=== PATIENT | female | born 1940 | race Caucasian/White ===

== ENCOUNTER → 2016-06-03 | Outpatient (CLI) | payer OTHER ==
--- NOTE | 2016-06-03 17:18 | MA ---
Screening Digital Mammogram With iCAD - June 03, 2016 Indication: Routine screening. Technique: Standard cephalocaudal and mediolateral oblique projections were obtained. This examinat ion was processed by the [employer] computer-aided detection system. Comparison: April 2015, April 2014, December 2012, and November 2011. Breast density: Type B. Findings: CAD was reviewed. Negative. No malignant-type calcification, dominant mass, or architectura l distortion. Impression: Negative mammogram. BI-RADS 1. Recommendation: Routine screening is recommended in one year. [facility] will send a result letter to the patient. Negative mammography should not preclude additional workup of a clinically suspicious finding. The patient's information is entered into a reminder system with a target due date for her next mammo gram.
== END ==
LOC: CIMAGING 13:50
DX: Z12.31 Encounter for screening mammogram for malignant neoplasm of breast (principal)
CPT/HCPCS: G0202

== ENCOUNTER 2017-04-27 05:48 | Inpatient (IN) | payer OTHER ==
[2017-04-27] MEDS ORDERED: LIDOCAINE 1% 2 ML INJ ID PRN (06:19)
[2017-04-27] MEDS ORDERED: LR 1,000 ML IV ONE (06:19)
[2017-04-27] MEDS ORDERED: THROMBIN (BOVINE) 5,000 UNIT VIAL TP ONE (06:34)
[2017-04-27] MEDS ORDERED: CALCIUM CHLORIDE 1 GM/10 ML INJ ONE (06:34)
[2017-04-27] MEDS ORDERED: BUPIVACAINE/EPI 0.5% 30 ML SDV ONE (06:34)
[2017-04-27] MEDS ORDERED: POLYMYXIN B SULFATE 500,000 UNIT/10 ML SYR IRR ONE (06:35)
[2017-04-27] MEDS ORDERED: BACITRACIN 50,000 UNITS/10 ML SYR IRR ONE (06:35)
[2017-04-27] MEDS ORDERED: MIDAZOLAM 2 MG/2 ML VIAL IVP ONE (07:06)
--- NOTE | 2017-04-27 07:08 | PDANEPAE ---
ANE Past Medical History - Cardiovascular History Hx Hypertension: No Hx Arrhythmias: No Hx Chest Pain: No Hx Coronary Artery / Peripheral Vascular Disease: No Hx CHF / Valvular Disease: No Hx Palpitations: No - Pulmonary History Hx COPD: No Hx Asthma/Reactive Airway Disease: No Hx Recent Upper Respiratory Infection: No Hx Oxygen in Use at Home: No Hx Sleep Apnea: No Sleep Apnea Screening Result - Last Documented: Positive - Neurologic History Hx Cerebrovascular Accident: No Hx Seizures: No Hx Dementia: No - Endocrine History Hx Diabetes: No Hypothyroid: No Hyperthyroid: No Obesity: yes, moderate - Renal History Hx Renal Disorders: No - Liver History Hx Hepatic Disorders: No - Neurological & Psychiatric Hx Hx Neurological and Psychiatric Disorders: Yes Neurological / Psychiatric History Comment: chiari malformation - Cancer History Hx Cancer: No - Congenital Disorder History Hx Congenital Disorders: No - GI History GERD: no Hx Gastrointestinal Disorders: No - Other Health History Other Health History: eczma on hands - Chronic Pain History Chronic Pain: No - Surgical History Prior Surgeries: carpal tunnel, cervical fusion ANE Review of Systems Review of Systems: - Exercise capacity METS (RN): 4 METS ANE Patient History - Allergies Allergies/Adverse Reactions: codeine [Codeine] Allergy (Mild, Verified 03/26/17 10:42) Rash - Home Medications Home Medications: Gabapentin [Neurontin 300 MG (*)] 600 mg PO BID 11/23/09 [Last Taken 04/27/17] Ascorbic Acid [Vitamin C 500 mg (*)] 1,000 mg PO DAILY 03/26/17 [Last Taken 09/07] Aspirin [Aspirin 81mg (*)] 81 mg PO DAILY 03/26/17 [Last Taken 04/19/17] C/E/Zn/Cu/OM3/DHA/EPA/LUT/ZEAX [Preservision Areds 2 Softgel] 1 each PO DAILY [Last Taken 04/26/17] Calcium Carbonate/Vitamin D3 [CALCIUM 600 + VIT D TABLET] 1 each PO DAILY [Last Taken 04/26/17] Herbals/Supplements -Info Only 1 ea PO DAILY 03/26/17 [Last Taken Unknown] Multivitamins [Multivitamin (*)] 1 each PO DAILY 03/26/17 [Last Taken 04/26/17] Laurens-3 Fatty Acids [Fish Oil 1000 mg (*)] 1,000 mg PO DAILY 03/26/17 [Last Taken 04/19/17] Vitamin B Complex [B Complex] 1 each PO DAILY 03/26/17 [Last Taken 04/26/17] - NPO status NPO Since - Liquids (Date): 04/26/17 NPO Since - Liquids (Time): 22:00 NPO Since - Solids (Date): 04/26/17 NPO Since - Solids (Time): 18:00 - Smoking Hx Smoking Status: Never smoked - Family Anes Hx Family Hx Anesthesia Complications: none ANE Labs/Vital Signs - Vital Signs Blood Pressure: 138/82 Heart Rate: 80 Respiratory Rate: 16 O2 Sat (%): 92 Height: 154.94 cm Weight: 90.718 kg ANE Physical Exam - Airway Neck exam: spinal fusion Mallampati Score: Class 2 Mouth exam: normal dental/mouth exam - Pulmonary Pulmonary: no respiratory distress, no rales or rhonchi, clear to auscultation - Cardiovascular Cardiovascular: regular rate and rhythym, no murmur, rub, or gallop - ASA Status ASA Status: II ANE Anesthesia Plan Anesthesia Plan: MAC, spinal
[2017-04-27] MEDS ORDERED: ROPIVACAINE 0.2% 80 MG, EPINEPHrine 0.2 MG, KETOROLAC TROMETHAMINE 30 MG, morphINE 10 M... IU ONE (07:15)
[2017-04-27] MEDS ORDERED: ACETAMINOPHEN 500 MG TAB PO ONE (07:15)
[2017-04-27] MEDS ORDERED: ceFAZolin 2 GM/SWFI 2 GM/20 ML SYR IVP ONE (07:15)
[2017-04-27] MEDS ORDERED: TRANEXAMIC ACID 3,000 MG in NS 50 ML IRR ONE (07:15)
--- NOTE | 2017-04-27 07:15 | PDHPUP ---
History & Physical Update H&P update statement: This history and physical update is based on an assessment of the patient which was completed after admission or registration (within 24 hours), but prior to the surgery/procedure. H&P update: H&P reviewed & patient examined, no change in patient's condition since H&P completed
[2017-04-27] MEDS ORDERED: PROPOFOL/EMULSION 500 MG/50 ML BOTTLE IV ONE (07:19)
[2017-04-27] MEDS ORDERED: fentaNYL 100 MCG/2 ML INJ ONE ×2 (07:19→09:49)
[2017-04-27] MEDS ORDERED: LIDOCAINE 2% 5 ML SDV ONE ×2 (07:21)
[2017-04-27] MEDS ORDERED: morphINE PF 5 MG/10 ML INJ ONE (07:27)
[2017-04-27] MEDS ORDERED: ONDANSETRON 4 MG/2 ML VIAL ONE (07:55)
[2017-04-27] MEDS ORDERED: DEXAMETHASONE 4 MG/ML VIAL ONE (07:55)
[2017-04-27] MEDS ORDERED: ROCURONIUM 50 MG/5 ML VIAL ONE (07:55)
[2017-04-27] MEDS ORDERED: PROPOFOL 200 MG/20 ML VIAL ONE (07:57)
[2017-04-27] MEDS ORDERED: REMIFENTANIL HCL 1 MG VIAL ONE (08:15)
[2017-04-27] MEDS ORDERED: ACETAMINOPHEN 500 MG TAB PO PRN (09:00)
[2017-04-27] MEDS ORDERED: HYDROCODONE/APAP 5/325 TAB PO PRN (09:00)
[2017-04-27] MEDS ORDERED: fentaNYL 100 MCG/2 ML INJ IVP PRN (09:00)
[2017-04-27] MEDS ORDERED: PROMETHAZINE HCL 25 MG/ML INJ IVP PRN ×2 (09:00→10:26)
[2017-04-27] MEDS ORDERED: ONDANSETRON 4 MG/2 ML VIAL IVP PRN ×2 (09:00→10:26)
[2017-04-27] MEDS ORDERED: NALOXONE HCL 0.4 MG/ML INJ IVP PRN (09:00)
[2017-04-27] MEDS ORDERED: LR 500 ML IV PRN (09:00)
[2017-04-27] MEDS ORDERED: OXYCODONE/APAP 5/325 TAB PO PRN (09:00)
[2017-04-27] MEDS ORDERED: epHEDrine SULFATE 10 MG/ML SYR ONE (09:06)
[2017-04-27] MEDS ORDERED: PHENYLEPHRINE HCL 100 MCG/ML SYR ONE (09:08)
[2017-04-27] MEDS ORDERED: NEOSTIGMINE METHYLSULFATE 3 MG/3 ML SYR ONE (09:53)
[2017-04-27] MEDS ORDERED: GLYCOPYRROLATE 0.2 MG/1 ML VIAL ONE ×2 (09:53→09:56)
[2017-04-27] MEDS ORDERED: KETOROLAC 30 MG/1 ML SDV ONE (10:03)
--- NOTE | 2017-04-27 10:25 | POSTOPPROG ---
Post Op Note Date of Operation: 04/27/17 Surgeon: Janine Zamarripa City Clerk: louie Anesthesiologist: lana Anesthesia: GET(General Endotracheal) Pre-op Diagnosis: l hip oa Procedure: l maira with fluoro Inf/Abcess present in the surg proc area at time of surgery?: No Depth: Deep Incisional (Fascial) EBL: 100-500
[2017-04-27] MEDS ORDERED: oxyCODONE IR 5 MG TAB PO PRN (10:26)
[2017-04-27] MEDS ORDERED: METOCLOPRAMIDE 10 MG/2 ML VIAL IVP PRN (10:26)
[2017-04-27] MEDS ORDERED: POLYETHYLENE GLYCOL 3350 17 GM PKT PO PRN (10:26)
[2017-04-27] MEDS ORDERED: MAGNESIUM HYDROXIDE 30 ML UDCUP PO PRN (10:26)
[2017-04-27] MEDS ORDERED: TEMAZEPAM 15 MG CAP PO PRN (10:26)
[2017-04-27] MEDS ORDERED: ONDANSETRON DISINTEGRATING 4 MG TAB PO PRN (10:26)
[2017-04-27] MEDS ORDERED: DIPHENOXYLATE/ATROPINE LOMOTIL 1 TAB PO PRN (10:26)
[2017-04-27] MEDS ORDERED: diphenhydrAMINE 25 MG CAP PO PRN (10:26)
[2017-04-27] MEDS ORDERED: BISACODYL 10 MG SUPP PR PRN (10:26)
[2017-04-27] MEDS ORDERED: LACTULOSE 20 GM/30 ML UDCUP PO PRN (10:26)
[2017-04-27] MEDS ORDERED: PROMETHAZINE HCL 25 MG SUPPR PR PRN (10:26)
[2017-04-27] MEDS ORDERED: TAPENTADOL HCL 50 MG TAB PO PRN (10:26)
[2017-04-27] MEDS ORDERED: CYCLOBENZAPRINE 10 MG TAB PO PRN (10:26)
[2017-04-27] MEDS ORDERED: LR 1,000 ML IV SCH (10:30)
--- NOTE | 2017-04-27 10:50 | POSTANESTH ---
Post Anesthetic Evaluation Cardiovascular Status: Normal, Stable Respiratory Status: Normal, Stable Level of Consciousness/Mental Status: Can Participate in Eval Pain Control: Adequate, Prn Tx Ordered Nausea/Vomiting Control: Adequate, Prn Tx Ordered Complications Possibly Related to Anesthesia: None Noted
--- NOTE | 2017-04-27 12:27 | GOP ---
[f rep st] OPERATIVE REPORT DATE OF OPERATION: 04/27/2017 SURGEON: Janine Zamarripa MD PIT SHOVELER: Gilberto Mccall, CSFA, LSA, whose presence was medically necessary. ANESTHESIA: Endotracheal intubation. PREOPERATIVE DIAGNOSIS: Left hip osteoarthritis. POSTOPERATIVE DIAGNOSIS: Left hip osteoarthritis. PROCEDURE PERFORMED: Left total hip arthroplasty with fluoroscopy. FINDINGS: INDICATIONS: This is a 77-year-old female with a several year history of left hip pain worsening wit h use and with time. X-rays revealed [id number] osteoarthritic changes of the left hip. She wishe s to have surgery in order to resolve the problem. DESCRIPTION OF PROCEDURE: Patient brought to the operating room after the left side had been identif ied as the correct side by the patient, nurse and [physician. Once in the operating room, she was alton harry under general anesthesia using endotracheal intubation. Once asleep, she was placed on the tract ion table with a well-padded peroneal post and both legs placed in the appropriate leg suazo. Fluor oscopy was used to ensure proper positioning of the pelvis and, once this was ensured, the left hip a nd flank were sterilely prepped and draped in the usual fashion using GSI solution. Once prepped and draped, incision was started just inferior to the ASIS and heading in a 15-degree posterior directio n with sharp dissection carried down through the skin and subcutaneous layers, identifying the tensor fascia mani below. The fascia overlying the tensor fascia mani was incised in line with its fibers, with the muscle belly of the TFL retracted laterally. The circumflex vessels at the base of the fasc ial sheath were cauterized. Deeper dissection was carried down onto the hip with blunt Cobra retracto rs placed on the superior and inferior portions of the femoral neck and a sharp Hohmann retractor alton harry on the anterior portion the acetabulum. The anterior portion of the capsule was excised. The Cobr a retractor was then placed intra-articularly, oscillating saw was used to cut across the femoral nec k just above the intertrochanteric line. The leg was externally rotated to 40 degrees and a corkscre w was placed within the femoral head and the femoral head was able to be removed in its entirety. Th e pulvinar at the base of the acetabulum was removed as well the acetabulum around the rim of the alonso tabulum. Sequential reamers were then used starting at a size 45 and extending to a size 49 until ac hieving bleeding bone. A 49 trial was noted to fit securely and well; its position was checked under fluoroscopy. A size 50 Tritanium hemispherical cup from Roy was then put into place with a scre w placed in the superior and anterior portion of the cup with a 32 x 50 polyethylene insert placed wi thin the acetabular cup. Once in position, the femur was externally rotated 90 degrees. Dissection was done around the capsule at the anterior and superior portions of the femoral capsule along the uriarte perior portion of the femoral neck. Once the femur had been freed enough, the leg was placed in exte nsion and adduction. A curette was used to remove the cancellous bone from the box portion of the fem ur and a rongeur was used to remove the superior portion of the femoral neck. Canal finder was then placed within the femoral canal and sequential broaches were used up to size 5 which was noted to fit securely. A trial reduction was performed. Fluoroscopy was then used to ensure adequate fill of th e proximal portion of the femur as well as good length. Therefore, the hip was re-dislocated, the tr ial was removed and a size 5 Accolade II 127-degree neck femoral component from Ed was put into place, noted to fit securely. Trials were done with several femoral heads and with a +8 head gave go od stability as well as good length compared to the opposite side. Therefore, the hip was re-disloca sherri. The trunnion was washed and then dried and a 32+ 8 Ed femoral head was put into place and noted to fit securely. The leg was relocated and was noted be very stable. Joint cocktail was injec sherri around the posterior capsule and the periosteum of the acetabulum and femur as well as plasma gel and tranexamic acid placed within the intra-articular portion of the hip. The fascia overlying the h ip was closed using 0 Vicryl suture in a running stitch with 0 Vicryl and 2-0 Vicryl suture then used to close subcutaneous layers and a 3-0 V-Loc suture in a running subcuticular stitch used to close t he skin. Then, 30 cc of Marcaine was infused around the actual incision itself and the wound was the n dressed with Steri-Strips, Xeroform, 4 x 4, and Tegaderm. Patient was completely undraped in the o perating room. Both legs were taken out of their leg holders. Her leg lengths were noted to be equa l. She was then woken up, extubated, transferred onto a stretcher, and sent to recovery room in good condition. /[id number]/MODL
[2017-04-27] MEDS: ACETAMINOPHEN 325 MG TAB PO SCH ×3 (12:38→23:38)
[2017-04-27] MEDS: KETOROLAC 30 MG/1 ML SDV IVP SCH ×3 (13:45→23:38)
[2017-04-27] MEDS: traMADol 50 MG TAB PO SCH ×3 (13:48→23:38)
[2017-04-27] MEDS: ceFAZolin 2 GM/DEXTROSE 100 ML IV SCH ×2 (15:42→23:45)
[2017-04-27] MEDS: SENNOSIDES/DOCUSATE SODIUM TAB PO SCH (21:08)
[2017-04-27] MEDS: FAMOTIDINE 20 MG TAB PO SCH (21:08)
[2017-04-27] MEDS: GABAPENTIN 300 MG CAP PO SCH (21:08)
[2017-04-28 05:13] LABS: HEMATOCRIT 30.2 % (38.0-47.0); HEMOGLOBIN 9.4 g/dL (12.6-16.3)
[2017-04-28] MEDS: traMADol 50 MG TAB PO SCH ×4 (05:48→23:59)
[2017-04-28] MEDS: ACETAMINOPHEN 325 MG TAB PO SCH ×4 (05:49→23:58)
[2017-04-28] MEDS: KETOROLAC 30 MG/1 ML SDV IVP SCH ×4 (05:50→23:59)
--- NOTE | 2017-04-28 08:19 | SOAPPROG ---
STEVEN Progress Note Assessment/Plan: Assessment: POD 1 Plan: - HCT - 30, recheck tomorrow AM, asymptomatic at this point - PT eval today, will likely be ready to go home tomorrow 04/28/17 08:17 Subjective: Pt comfortable, has had some chronic back pain since before surgery, still continues to bother her Objective: Vital Signs Temp Pulse Resp BP Pulse Ox 36.2 C 89 16 91/53 L 92 04/28/17 07:48 04/28/17 07:48 04/28/17 07:48 04/28/17 07:48 04/28/17 07:48 Laboratory Results 04/28/17 04:23 04/27/17 04/28/17 04/29/17 05:59 05:59 05:59 Intake Total 1540 Output Total 200 Balance 1340 Dressing CDI, compartments soft, calf NT, neg Homman's, NVI - Time Spent With Patient Time Spent With Patient: 15 - Pending Discharge Pending Discharge Within 24 Hours: No Pending Discharge Within 48 Hours: No ICD10 Worksheet Patient Problems: Problems Problem Status Onset Arthritis of left hip Acute - ICD10 Problem Qualifiers (1) Arthritis of left hip
[2017-04-28] MEDS: SENNOSIDES/DOCUSATE SODIUM TAB PO SCH ×2 (08:49→21:09)
[2017-04-28] MEDS: GABAPENTIN 300 MG CAP PO SCH ×2 (08:49→21:10)
[2017-04-28] MEDS: RIVAROXABAN 10 MG TAB PO SCH (08:50)
[2017-04-28] MEDS: FAMOTIDINE 20 MG TAB PO SCH ×2 (08:50→21:09)
--- NOTE | 2017-04-28 14:25 | ASMTCMCOM ---
CM Note CM Note Notes: Pt had planned total hip. PT rec SNF today; pt agreeable and chooses [facility]. Referral sent in [employer], [facility] accepts for likely d/c tomorrow. Date Signed: 04/28/2017 02:25 PM Electronically Signed By:SAMUEL Gomez
[2017-04-29 04:47] LABS: HEMATOCRIT 25.5 % (38.0-47.0); HEMOGLOBIN 8.4 g/dL (12.6-16.3)
[2017-04-29] MEDS: traMADol 50 MG TAB PO SCH ×3 (06:36→17:53)
[2017-04-29] MEDS: ACETAMINOPHEN 325 MG TAB PO SCH ×3 (06:36→17:53)
[2017-04-29] MEDS: KETOROLAC 30 MG/1 ML SDV IVP SCH (06:37)
[2017-04-29 08:10] VITALS: RESP 16
[2017-04-29] MEDS: FAMOTIDINE 20 MG TAB PO SCH ×2 (09:04→20:43)
[2017-04-29] MEDS: RIVAROXABAN 10 MG TAB PO SCH (09:04)
[2017-04-29] MEDS: GABAPENTIN 300 MG CAP PO SCH ×2 (09:04→20:42)
[2017-04-29] MEDS: SENNOSIDES/DOCUSATE SODIUM TAB PO SCH ×2 (09:04→20:42)
[2017-04-29] MEDS ORDERED: NS 500 ML IV ONE (10:30)
[2017-04-29 14:41] LABS: ANION GAP 8 mEq/L (8-16); CALCIUM 8.5 mg/dL (8.5-10.4); CARBON DIOXIDE 23 mEq/l (22-31); CHLORIDE 101 mEq/L (97-110); CREATININE 1.9 mg/dL (0.6-1.0); GLOMERULAR FILTRATION RATE 26; GLUCOSE 132 mg/dL (70-100); POTASSIUM 4.6 mEq/L (3.5-5.2); SODIUM 132 mEq/L (134-144)
[2017-04-30] MEDS: ACETAMINOPHEN 325 MG TAB PO SCH ×3 (00:03→12:51)
[2017-04-30] MEDS: traMADol 50 MG TAB PO SCH ×3 (00:04→12:51)
[2017-04-30 07:50] VITALS: TEMP 98.4
[2017-04-30] MEDS: FAMOTIDINE 20 MG TAB PO SCH (08:52)
[2017-04-30] MEDS: SENNOSIDES/DOCUSATE SODIUM TAB PO SCH (08:52)
[2017-04-30] MEDS: RIVAROXABAN 10 MG TAB PO SCH (08:52)
[2017-04-30] MEDS: GABAPENTIN 300 MG CAP PO SCH (08:52)
--- NOTE | 2017-04-30 14:23 | SOAPPROG ---
SOAP Progress Note Assessment/Plan: Assessment: POD 3 Plan: - Visual changes - Head CT normal - s/p TKA - doing well, can d/c to rehab - elevated BUN / Crea - encourage PO fluid intake, suggest recheck in 1 week 04/28/17 08:17 04/30/17 14:21 Subjective: Pt still c/o double vision/blurry vision. No improvement in that over yesterday. She is not taking any pain meds. Objective: Vital Signs Temp Pulse Resp BP Pulse Ox 36.9 C 95 16 100/64 96 04/30/17 07:46 04/30/17 07:46 04/30/17 07:46 04/30/17 07:46 04/30/17 07:46 Laboratory Results 04/29/17 04:30 04/29/17 13:00 04/29/17 04/30/17 05/01/17 05:59 05:59 05:59 Intake Total 2150 2100 Output Total 300 550 Balance 1850 1550 Wound CDI, calf NT, NVI - Time Spent With Patient Time Spent With Patient: 10 - Pending Discharge Pending Discharge Within 24 Hours: Yes Pending Discharge Within 48 Hours: No Pending Discharge Date: 05/01/17 Pending Discharge Time: 11:00 ICD10 Worksheet Patient Problems: Problems Problem Status Onset Arthritis of left hip Acute - ICD10 Problem Qualifiers (1) Arthritis of left hip
--- NOTE | 2017-04-30 14:27 | PDIAF ---
- Diagnosis Code Status: Full Code - Medication Management Discharge Medications: Medications to Continue on Transfer Gabapentin [Neurontin 300 MG (*)] 600 mg PO BID 11/23/09 [Last Taken 04/27/17] Ascorbic Acid [Vitamin C 500 mg (*)] 1,000 mg PO DAILY 03/26/17 [Last Taken 09/07] Aspirin [Aspirin 81mg (*)] 81 mg PO DAILY 03/26/17 [Last Taken 04/19/17] C/E/Zn/Cu/OM3/DHA/EPA/LUT/ZEAX [Preservision Areds 2 Softgel] 1 each PO DAILY [Last Taken 04/26/17] Calcium Carbonate/Vitamin D3 [CALCIUM 600 + VIT D TABLET] 1 each PO DAILY [Last Taken 04/26/17] Herbals/Supplements -Info Only 1 ea PO DAILY 03/26/17 [Last Taken Unknown] Multivitamins [Multivitamin (*)] 1 each PO DAILY 03/26/17 [Last Taken 04/26/17] Mccrory-3 Fatty Acids [Fish Oil 1000 mg (*)] 1,000 mg PO DAILY 03/26/17 [Last Taken 04/19/17] Vitamin B Complex [B Complex] 1 each PO DAILY 03/26/17 [Last Taken 04/26/17] Rivaroxaban [Xarelto 10mg (*)] 10 mg PO DAILY tab 04/30/17 [Last Taken Unknown] Sennosides/Docusate Sodium [Senokot-S] 1 - 2 tab PO BID tab 04/30/17 [Last Taken Unknown] oxyCODONE IR [Oxycodone Ir (*)] 5 - 10 mg PO Q3HRS PRN tab 04/30/17 [Last Taken Unknown] traMADol [Ultram 50 mg (*)] 50 mg PO Q6HRS tab 04/30/17 [Last Taken Unknown] Discharge Medications: Refer to the Discharge Home Medication list for PRN reason. PICC Care - Routine: N/A - Orders Services needed: Physical Therapy Diet Recommendation: no restrictions on diet Diet Texture: Regular Texture Diet - Labs/Radiology BMP Date: 05/06/17 Creatinine Date: 05/06/17 - Follow Up Care Current Providers and Referrals: Domenica Lee MD [Primary Care Provider] - Janine Zamarripa MD [Medical Doctor] -
[2017-04-30 15:40] VITALS: BP 133/70; PULSE 86; O2SAT 92
--- NOTE | 2017-05-01 10:04 | ASDISCHSUM ---
Discharge Information Plan Status:SNF Medically Cleared to Leave: Discharge Date:04/30/2017 04:47 PM D/C Disposition:[facility] Facility ADT D/C Disposition:[facility] Facility Projected Discharge Date:04/30/2017 11:00 AM Transportation at D/C: Discharge Delay Reason: Follow-Up Date:04/30/2017 11:00 AM Discharge Slot: Final Diagnosis: Placement Information Referral Type:*Long Term/SNF Referral ID:[id number] Provider Name:[facility] Address 1:[address] Address 2: City:[place] Selection Factors: State:[place] Patient Contact Information Contact Name:KEILA Relationship:Daughter Address:[address] [place] [address] City:[place] Alternate Phone: State/Zip Code:[place] [address] Email: Financial Information Financial Class: Primary Plan Desc:MEDICARE INPATIENT Primary Plan Number:[id number] Secondary Plan Desc:[facility] Secondary Plan Number:[id number] Assessment Information [facility] CM Progress Note CM Note CM Note Notes: Pt had planned total hip. PT rec SNF today; pt agreeable and chooses [facility]. Referral sent in [facility], [facility] accepts for likely d/c tomorrow. Date Signed: 04/28/2017 02:25 PM Electronically Signed By:SAMUEL Gomez [facility] CM Progress Note CM Note CM Note Notes: Pt medically stable for d/c to [facility] Date Signed: 05/01/2017 10:06 AM Electronically Signed By:SAMUEL Gomez Intervention Information Intervention Type:*IM-Signed Date of Service:04/30/2017 04:09 PM Patient Type:Inpatient Staff Member:Brinda Soto Hours: Discipline: Severity: Comment:
--- NOTE | 2017-05-01 10:07 | ASMTCMCOM ---
CM Note CM Note Notes: Pt medically stable for d/c to [facility] up [facility] Date Signed: 05/01/2017 10:06 AM Electronically Signed By:SAMUEL Gomez
== END 2017-04-30 16:47 | DRG 470 ==
LOC: F3N 05:48
PROVIDERS: ADMIT Orthopaedic Surgery; ATTEND Orthopaedic Surgery
PROC: 0SRB0JZ Replacement of Left Hip Joint with Synthetic Substitute, Open Approach (ICD-10-PCS; principal; 2017-04-27 07:15)
PROC: 30233N1 Transfusion of Nonautologous Red Blood Cells into Peripheral Vein, Percutaneous Approach (ICD-10-PCS; 2017-04-29)
DX: M16.12 Unilateral primary osteoarthritis, left hip (principal)
CPT/HCPCS: 97110-GP; 97116-GP; 97161-GP; 97165-GO; 97530-GO; 97535-GO; C1713; G8978-GP-CJ; G8979-GP-CI; G8987-GO-CK; G8988-GO-CI; J0171; J0690; J1100; J1885; J2250; J2274; J2370; J2405; J2704; J2710; J2795; J3010; P9016

== ENCOUNTER 2017-05-04 16:26 | Emergency (ER) | payer OTHER ==
[2017-05-04] MEDS ORDERED: HYDROmorphONE/DILAUDID 1 MG/ML INJ IVP ONE (16:49)
--- NOTE | 2017-05-04 16:53 | EDPHY ---
H & P Stated Complaint: L TKA last week, L Hip pain not getting better Time Seen by Provider: 05/04/17 16:50 HPI/ROS: HPI: This is a 77-year-old female who presents with Chief Complaint: Left hip pain Location: Left hip Quality: Pain Duration: 1 week Signs and Symptoms: No bleeding, no radiation, no numbness, no weakness, no tingling, no incontinence, + decreased range of motion, + swelling, + pain Timing: constant Severity: Severe Context: Patient reports that she had a left total hip replacement, anterior approach, last Wednesday, exactly 1 week ago, by Dr. Lucero. She is currently in a rehab center. She reports that she has had constant severe nonradiating pain that worsens with weight-bearing and movement since her surgery. The pain is not controlled with oxycodone or Ultram. On Xarelto. She denies any recent falls/shortness of breath/chest pain/palpitations/calf pain. Patient denies any recent falls. Patient is that she has not been placed in the cold pack on her left hip as advised. She admits to being extremely anxious about the entire situation. Modifying Factors: See above Comment: ROS: see HPI Constitutional: No fever, no chills, no weight loss Eyes: No blurred vision Respiratory: No shortness of breath, no cough Cardiovascular: No chest pain Gastrointestinal: No nausea, no vomiting no diarrhea Genitourinary: No dysuria Extremities: No myalgias Neurologic: No weakness, no numbness Skin: No rashes Hematologic: No bruising, no bleeding MEDICAL/SURGICAL/SOCIAL HISTORY: Medical history: GB/Neck/Hyst/Foot/chiari malformation, nerve pain Surgical history: L TKA Social history: Retired CONSTITUTIONAL: Tearful moderate distress elderly white female awake and alert , nontoxic in appearance HEENT: Atraumatic and normocephalic. NECK: supple, no midline tenderness Cardiovascular: Normal S1/S2, regular rate, regular rhythm, without murmur rub or gallop. PULMONARY/CHEST: Symmetrical and nontender. no crepitus. Clear to auscultation bilaterally. Good air movement. No accessory muscle usage. ABDOMEN: Soft, nondistended, nontender, no ecchymosis. BACK: No midline tenderness, no paraspinous spasm, deep tendon reflexes 2/2, no pain with straight leg raise EXTREMITIES: 2/2 pulses, left HIP: Moderate induration/erythema. Dressing over anterior approach incision. Flexion to 75, extension to 25, hyper extension to 15, abduction to 25. Pain with internal rotation and external rotation. tenderness over greater trochanter. no deformities, no clubbing, no cyanosis or edema. + left calf tenderness. NEUROLOGICAL: no focal neuro deficits. GCS 15. Light touch sensation intact. SKIN: Warm and dry, no erythema. no rash. Good capillary refill. Source: Patient Exam Limitations: No limitations - Personal History Current Tetanus Diphtheria and Acellular Pertussis (TDAP): Yes Tetanus Vaccine Date: 2009 - Medical/Surgical History Hx Asthma: No Hx Chronic Respiratory Disease: No Hx Diabetes: No Hx Cardiac Disease: No Hx Renal Disease: No Hx Cirrhosis: No Hx Alcoholism: No Hx HIV/AIDS: No Hx Splenectomy or Spleen Trauma: No Other PMH: GB/Neck/Hyst/Foot/chiari malformation, nerve pain, L TKA - Social History Smoking Status: Former smoker Constitutional: Initial Vital Signs Temperature (C) 36.8 C 05/04/17 16:34 Heart Rate 86 05/04/17 16:34 Respiratory Rate 18 05/04/17 16:34 Blood Pressure 142/125 H 05/04/17 16:34 O2 Sat (%) 95 05/04/17 16:34 O2 Delivery Mode Nasal Cannula O2 (L/minute) 2 Allergies/Adverse Reactions: codeine [Codeine] Allergy (Mild, Verified 05/04/17 16:34) Rash Home Medications: Medication Instructions Recorded Gabapentin [Neurontin 300 MG (*)] 600 mg PO BID 11/23/09 Ascorbic Acid [Vitamin C 500 mg 1,000 mg PO DAILY 03/26/17 (*)] Aspirin [Aspirin 81mg (*)] 81 mg PO DAILY 03/26/17 C/E/Zn/Cu/OM3/DHA/EPA/LUT/ZEAX 1 each PO DAILY 03/26/17 [Preservision Areds 2 Softgel] Calcium Carbonate/Vitamin D3 1 each PO DAILY 03/26/17 [CALCIUM 600 + VIT D TABLET] Herbals/Supplements -Info Only 1 ea PO DAILY 03/26/17 Multivitamins [Multivitamin (*)] 1 each PO DAILY 03/26/17 [place]-3 Fatty Acids [Fish Oil 1000 1,000 mg PO DAILY 03/26/17 mg (*)] Vitamin B Complex [B Complex] 1 each PO DAILY 03/26/17 Rivaroxaban [Xarelto 10mg (*)] 10 mg PO DAILY tab 04/30/17 Sennosides/Docusate Sodium 1 - 2 tab PO BID tab 04/30/17 [Senokot-S] oxyCODONE IR [Oxycodone Ir (*)] 5 - 10 mg PO Q3HRS PRN tab 04/30/17 traMADol [Ultram 50 mg (*)] 50 mg PO Q6HRS tab 04/30/17 HYDROmorphone HCL [Dilaudid 2 mg 2 mg PO Q6 PRN #12 tab 05/04/17 (*)] Medical Decision Making - Diagnostics Imaging Results: Imaging Impressions Extremity Venous Study 05/04/17 16:49 Impression: Technically limited study. No evidence of deep vein thrombosis in the left leg. I telephoned results to Tess Freeman at 1730 hours. Hip X-Ray 05/04/17 16:49 Impression: Bilateral hip replacements, unchanged from April 27, 2017. ED Course/Re-evaluation: IV medications, left hip x-ray, left lower extremity ultrasound, labs ordered Given IV Dilaudid with moderate pain relief 1730: Called by Radiology Dr. Golden who advised that ultrasound shows no lower extremity on the left side deep venous thrombosis No signs of neurovascular compromise/tenting of skin/compartment syndrome/ extremities and joints examined above and below area of concern and are neurovascularly intact/cellulitis/sepsis. 1820: Spoke with Dr. Mullen, who was manager front office for Dr. Zamarripa, discussed the patient's complaint x-ray and ultrasound results. There appears to be no signs of infection. Afebrile. The area is indurated which is to be expected after surgery. Dr. Mullen advises the patient to call the office in the morning for follow-up appointment in the next 1-2 days. Requests pain control. Agrees with benefit of durakold. Patient is to hold off on physical therapy until seen by Orthopedics in follow-up. For transport and because it is after hours; patient given p.o. Dilaudid 2 mg at discharge Labs reviewed and showed no leukocytosis This patient was seen under the supervision of my secondary supervising physician. I evaluated care for this patient independently. Patient's presentation, labs/imaging, treatment and plan of care were discussed with secondary supervising physician. Differential Diagnosis: Differential diagnosis includes but is not limited to hematoma, contusion, postoperative pain, hardware malfunction, cellulitis, abscess, DVT. - Data Points Laboratory Results: Laboratory Results 05/04/17 16:40 05/04/17 16:40 05/04/17 05/04/17 16:40 16:40 WBC 9.06 10^3/uL 10^3/uL (3.80-9.50) RBC 3.00 10^6/uL L 10^6/uL (4.18-5.33) Hgb 9.5 g/dL L g/dL (12.6-16.3) Hct 28.3 % L % (38.0-47.0) MCV 94.3 fL fL (81.5-99.8) MCH 31.7 pg pg (27.9-34.1) MCHC 33.6 g/dL g/dL (32.4-36.7) RDW 14.1 % % (11.5-15.2) Plt Count 166 10^3/uL 10^3/uL (150-400) MPV 11.5 fL fL (8.7-11.7) Neut % (Auto) Not Reported Lymph % (Auto) Not Reported Brooke % (Auto) Not Reported Eos % (Auto) Not Reported Baso % (Auto) Not Reported Nucleat RBC Rel Count 0.7 % H % (0.0-0.2) Absolute Neuts (auto) Not Reported Absolute Lymphs (auto) Not Reported Absolute Monos (auto) Not Reported Absolute Eos (auto) Not Reported Absolute Basos (auto) Not Reported Absolute Nucleated RBC 0.06 10^3/uL H 10^3/uL (0-0.01) Immature Gran % Not Reported Immature Gran # Not Reported Platelet Estimate Pending Sodium 135 mEq/L mEq/L (134-144) Potassium 4.9 mEq/L mEq/L (3.5-5.2) Chloride 97 mEq/L mEq/L (97-110) Carbon Dioxide 29 mEq/l mEq/l (22-31) Anion Gap 9 mEq/L mEq/L (8-16) BUN 17 mg/dL mg/dL (7-23) Creatinine 0.9 mg/dL mg/dL (0.6-1.0) Estimated GFR > 60 Glucose 105 mg/dL H mg/dL (70-100) Calcium 9.1 mg/dL mg/dL (8.5-10.4) Medications Given: Discontinued Medications Hydromorphone HCl (Dilaudid) 1 mg IVP EDNOW ONE Stop: 05/04/17 16:50 Last Admin: 05/04/17 16:52 Dose: 1 mg Departure - Departure Disposition: Home, Routine, Self-Care Clinical Impression: History of total left hip replacement, Uncontrolled pain Condition: Good Instructions: Hydromorphone (By mouth) Additional Instructions: Patient is to no longer participate in physical therapy until seen by Dr. Zamarripa for follow-up in the next 1-[address] Zamarripa office in the a.m. to get an appointment in the next 1-2 days. Stop taking oxycodone. Start taking Dilaudid. Place the Durakold ice pack on left hip several times per day to decrease inflammation and pain. Today your x-ray showed that your hardware is in the proper place. Ultrasound did not show a blood clot in your left leg. Referrals: Janine Zamarripa MD [Medical Doctor] - 1-2 days without fail Prescriptions: HYDROmorphone HCL [Dilaudid 2 mg (*)] 2 mg PO Q6 PRN #12 tab PRN Reason: Pain, Severe
[2017-05-04 18:37] LABS: ANION GAP 9 mEq/L (8-16); CALCIUM 9.1 mg/dL (8.5-10.4); CARBON DIOXIDE 29 mEq/l (22-31); CHLORIDE 97 mEq/L (97-110); CREATININE 0.9 mg/dL (0.6-1.0); GLOMERULAR FILTRATION RATE > 60; GLUCOSE 105 mg/dL (70-100); POTASSIUM 4.9 mEq/L (3.5-5.2); SODIUM 135 mEq/L (134-144)
[2017-05-04 18:46] LABS: ABSOLUTE NRBC COUNT 0.06 10^3/uL (0-0.01); ADD DIFF? YES; ADD MORPH? NO; ADD SCAN? NO; ATYPICAL LYMPHOCYTE FLAG 0 (0-99); FRAGMENT RBC FLAG 0 (0-99); HEMATOCRIT 28.3 % (38.0-47.0); HEMOGLOBIN 9.5 g/dL (12.6-16.3); LEFT SHIFT FLG 60 (0-99); LIPEMIA HEMOLYSIS FLAG 80 (0-99); MEAN CELL HEMOGLOBIN 31.7 pg (27.9-34.1); MEAN CELL HEMOGLOBIN CONCENTR. 33.6 g/dL (32.4-36.7); MEAN CELL VOLUME 94.3 fL (81.5-99.8); MEAN PLATELET VOLUME 11.5 fL (8.7-11.7); NRBC-AUTO% 0.7 % (0.0-0.2); PLATELET CLUMPS FLAG 10 (0-99); PLATELET COUNT 166 10^3/uL (150-400); RED CELL DISTRIBUTION WIDTH 14.1 % (11.5-15.2)
[2017-05-04] MEDS ORDERED: HYDROmorphONE/DILAUDID 2 MG TAB ONE (19:25)
[2017-05-04] MEDS ORDERED: HYDROmorphONE/DILAUDID 2 MG TAB PO ONE (19:25)
[2017-05-04 19:27] LABS: PLATELET ESTIMATE ADEQUATE (ADEQ)
[2017-05-04 21:02] VITALS: BP 130/66; PULSE 87; RESP 16; TEMP 98.1; O2SAT 95
== END 2017-05-04 19:44 | disposition home or self-care (01) ==
LOC: EDUNIT#
DX: T84.84XA Pain due to internal orthopedic prosthetic devices, implants and grafts, initial encounter (principal); M25.552 Pain in left hip; Z79.82 Long term (current) use of aspirin; Z87.891 Personal history of nicotine dependence; Y79.2 Prosthetic and other implants, materials and accessory orthopedic devices associated with adverse incidents
CPT/HCPCS: 73502; 93971; 96374; 99285; J1170

== ENCOUNTER 2017-05-12 14:28 | Inpatient (IN) | payer OTHER ==
[2017-05-12] MEDS ORDERED: ACETAMINOPHEN 325 MG TAB PO ONE (14:45)
[2017-05-12] MEDS ORDERED: ceFAZolin 2 GM/DEXTROSE 100 ML IV ONE (14:46)
--- NOTE | 2017-05-12 14:47 | EDPHY ---
H & P Time Seen by Provider: 05/12/17 14:33 HPI/ROS: CHIEF COMPLAINT: Possible infection of surgical site HISTORY OF PRESENT ILLNESS: The patient is an anticoagulated (Aspirin) 77 y/o female with a history of anterior total left hip replacement April 27, 2.5 weeks ago, complaining of erythema, discharge, and induration at the surgical site with a secondary site of erythema, warmth, and tenderness on her right elbow. Caretakers have noted increasing erythema and discharge at the surgical incision. She has had increased oxygen demand, but denies shortness of breath or cough. She denies pain with movement of her elbow or hip, or any other associated symptoms. REVIEW OF SYSTEMS: Constitutional: no chills Eyes: No visual changes ENT: No sore throat Respiratory: No cough, no shortness of breath Cardiac: No chest pain Gastrointestinal: No nausea, no vomiting, no abdominal pain Genitourinary: No hematuria, no dysuria Skin: Erythema on the anterior left hip and right elbow Neurological: No headache Psychiatric: No depression Past Medical/Surgical History: Anterior left hip replacement 04/27 Social History: Lives in [place], retired, former smoker Smoking Status: Former smoker Physical Exam: General Appearance: Alert, no distress Eyes: Pupils equal and round, no conjunctival pallor or injection ENT, Mouth: Mucous membranes moist Neck: Normal inspection Respiratory: Lungs are clear to auscultation Cardiovascular: Regular rate and rhythm Gastrointestinal: Abdomen is soft and non- tender Neurological: A&O, nonfocal, normal gait Skin: Warm and dry, no rash Extremities: Anterior left hip incision mostly intact with erythema extending 10 cm laterally, induration, and some puss. Right elbow erythematic with warmth and tenderness. Bursa is swollen. Psychiatric: Mood and affect normal Constitutional: Initial Vital Signs Temperature (C) 37.3 C 05/12/17 14:47 Heart Rate 105 H 05/12/17 14:47 Respiratory Rate 18 05/12/17 14:47 Blood Pressure 130/60 H 05/12/17 14:47 O2 Sat (%) 88 L 05/12/17 14:47 O2 Delivery Mode Room Air O2 (L/minute) 2 Allergies/Adverse Reactions: codeine [Codeine] Allergy (Mild, Verified 05/04/17 16:34) Rash Home Medications: Medication Instructions Recorded Gabapentin [Neurontin 300 MG (*)] 600 mg PO BID 11/23/09 Ascorbic Acid [Vitamin C 500 mg 1,000 mg PO DAILY 03/26/17 (*)] Aspirin [Aspirin 81mg (*)] 81 mg PO DAILY 03/26/17 C/E/Zn/Cu/OM3/DHA/EPA/LUT/ZEAX 1 each PO DAILY 03/26/17 [Preservision Areds 2 Softgel] Calcium Carbonate/Vitamin D3 1 each PO DAILY 03/26/17 [CALCIUM 600 + VIT D TABLET] Herbals/Supplements -Info Only 1 ea PO DAILY 03/26/17 Multivitamins [Multivitamin (*)] 1 each PO DAILY 03/26/17 [place]-3 Fatty Acids [Fish Oil 1000 1,000 mg PO DAILY 03/26/17 mg (*)] Vitamin B Complex [B Complex] 1 each PO DAILY 03/26/17 traMADol [Ultram 50 mg (*)] 50 mg PO Q6HRS tab 04/30/17 Acetaminophen [Tylenol 325mg (*)] 650 mg PO Q6 PRN 05/12/17 Sennosides/Docusate Sodium 1 - 2 tab PO BID PRN 05/12/17 [Senokot-S] oxyCODONE HCL [Oxycontin] 10 mg PO BID PRN 05/12/17 oxyCODONE IR [Oxycodone Ir (*)] 5 - 10 mg PO Q4HRS PRN 05/12/17 Medical Decision Making - Diagnostics Imaging Results: Imaging Impressions Chest X-Ray 05/12/17 14:44 Impression: Suspect airways disease. Bibasilar opacities, probably atelectasis with clinical correlation to exclude pneumonia. ED Course/Re-evaluation: The patient presents with postoperative infection. She has cellulitis, but no evidence of joint infection, as a hip range of motion is normal, without pain. She also has right olecranon bursitis. Wound culture sent from left hip incision site. Blood cultures drawn and Ancef [address] Marilou lu, discussed with his PA, Kee, will consult. The hospitalist service was consulted for admission. Initial lactate 2.4. 1 L normal saline given and a repeat lactate drawn. Blood pressure is normal, heart rate is 105. Meets severe sepsis criteria with leukocytosis, HR 105, lactate 2.4. Repeat lactate 1.2. Old medical record reviewed. History of MRSA. Vancomycin 1 g IV given. The patient was seen in the emergency department by Dr. Kamron Deleon and Dr. Hernan Head. Ultrasounds of the left hip and right elbow ordered and are pending. Blood pressure remained normal throughout. The patient's tachycardia resolved after IV fluids and Tylenol. I spent a total of 35 minutes of critical care time in obtaining history, performing a physical exam, bedside monitoring of interventions, collecting and interpreting tests and discussion with consultants but not including time spent performing procedures. Organ at risk: All, severe sepsis Differential Diagnosis: Differential diagnosis includes joint infection, pyelonephritis, cholecystitis, influenza, cellulitis, pneumonia, abscess, meningitis. - Data Points Laboratory Results: Laboratory Results 05/12/17 14:29 05/12/17 14:29 05/12/17 05/12/17 05/12/17 14:29 14:29 14:29 WBC 17.05 10^3/uL H 10^3/uL (3.80-9.50) RBC 2.64 10^6/uL L 10^6/uL (4.18-5.33) Hgb 8.4 g/dL L g/dL (12.6-16.3) Hct 26.1 % L % (38.0-47.0) MCV 98.9 fL fL (81.5-99.8) MCH 31.8 pg pg (27.9-34.1) MCHC 32.2 g/dL L g/dL (32.4-36.7) RDW 16.3 % H % (11.5-15.2) Plt Count 275 10^3/uL 10^3/uL (150-400) MPV 11.5 fL fL (8.7-11.7) Neut % (Auto) Not Reported Lymph % (Auto) Not Reported Lucas % (Auto) Not Reported Eos % (Auto) Not Reported Baso % (Auto) Not Reported Nucleat RBC Rel Count 0.2 % % (0.0-0.2) Absolute Neuts (auto) Not Reported Absolute Lymphs (auto) Not Reported Absolute Monos (auto) Not Reported Absolute Eos (auto) Not Reported Absolute Basos (auto) Not Reported Absolute Nucleated RBC 0.04 10^3/uL H 10^3/uL (0-0.01) Immature Gran % Not Reported Seg Neutrophils % 68 % % Band Neutrophils % 8 % % Lymphocytes % 9 % % Monocytes % 15 % % Immature Gran # Not Reported Absolute Seg Neuts 11.59 10^/uL H 10^/uL (1.70-6.50) Absolute Band Neuts 1.36 10^3/uL H 10^3/uL (0.00-0.70) Absolute Lymphocytes 1.53 10^3/uL 10^3/uL (1.00-3.00) Absolute Monocytes 2.56 10^3/uL H 10^3/uL (0.30-0.80) Platelet Estimate ADEQUATE (ADEQ) Polychromasia 1+ H Smear Review By Gabriel REAGAN MD [facility] Lactic Acid Sodium 136 mEq/L mEq/L (134-144) Potassium 4.2 mEq/L mEq/L (3.5-5.2) Chloride 102 mEq/L mEq/L (97-110) Carbon Dioxide 24 mEq/l mEq/l (22-31) Anion Gap 10 mEq/L mEq/L (8-16) BUN 16 mg/dL mg/dL (7-23) Creatinine 1.1 mg/dL H mg/dL (0.6-1.0) Estimated GFR 48 Glucose 142 mg/dL H mg/dL (70-100) Calcium 8.9 mg/dL mg/dL (8.5-10.4) Creatine Kinase 166 IU/L H IU/L (0-156) CK-MB (CK-2) Fraction 1.69 ng/mL ng/mL (0.00-3.19) CK-MB (CK-2) % 1.0 % % (0.0-4.0) Creatine Kinase Interp NEGATIVE (NEGATIVE) 05/12/17 14:29 WBC RBC Hgb Hct MCV MCH MCHC RDW Plt Count MPV Neut % (Auto) Lymph % (Auto) Lucas % (Auto) Eos % (Auto) Baso % (Auto) Nucleat RBC Rel Count Absolute Neuts (auto) Absolute Lymphs (auto) Absolute Monos (auto) Absolute Eos (auto) Absolute Basos (auto) Absolute Nucleated RBC Immature Gran % Seg Neutrophils % Band Neutrophils % Lymphocytes % Monocytes % Immature Gran # Absolute Seg Neuts Absolute Band Neuts Absolute Lymphocytes Absolute Monocytes Platelet Estimate Polychromasia Smear Review By [facility] Lactic Acid 2.4 mmol/L H mmol/L (0.7-2.1) Sodium Potassium Chloride Carbon Dioxide Anion Gap BUN Creatinine Estimated GFR Glucose Calcium Creatine Kinase CK-MB (CK-2) Fraction CK-MB (CK-2) % Creatine Kinase Interp Microbiology Results: MICROBIOLOGY 05/12/17 14:44 Hip - Swab Gram Stain - Final Medications Given: Gabapentin (Neurontin) 600 mg PO BID [facility] Stop: 11/08/17 20:59 Last Admin: 05/12/17 20:03 Dose: 600 mg Vancomycin/Sodium Chloride (Vancomycin 1 Gm (Premix)) 250 mls @ 250 mls/hr IV Q12H GERI PRN Reason: Protocol Stop: 06/11/17 16:29 Last Admin: 05/12/17 17:46 Dose: 250 mls Oxycodone HCl (Oxycontin) 10 mg PO BID GERI Stop: 05/22/17 20:59 Last Admin: 05/12/17 20:04 Dose: 10 mg Tramadol HCl (Ultram) 50 mg PO Q6HRS GERI Stop: 11/08/17 17:59 Last Admin: 05/12/17 17:45 Dose: 50 mg Discontinued Medications Acetaminophen (Tylenol) 650 mg PO EDNOW ONE Stop: 05/12/17 14:46 Last Admin: 05/12/17 14:53 Dose: 650 mg Cefazolin Sodium/Dextrose (Ancef 2 Gm (Premix)) 100 mls @ 200 mls/hr IV EDNOW ONE PRN Reason: Protocol Stop: 05/12/17 15:15 Last Admin: 05/12/17 14:57 Dose: 100 mls Sodium Chloride (Ns) 1,000 mls @ 0 mls/hr IV ONCE ONE; Wide Open PRN Reason: Protocol Stop: 05/12/17 15:11 Last Admin: 05/12/17 20:06 Dose: Not Given Sodium Chloride (Ns) 2,500 mls @ 5,000 mls/hr 30 ml/kg infuse over 30 min ( 2500 ml) IV EDNOW ONE PRN Reason: Protocol Stop: 05/12/17 15:54 Last Admin: 05/12/17 15:29 Dose: 2,500 mls Departure - Departure Disposition: [facility] Inpatient Acute Clinical Impression: Olecranon bursitis of right elbow Postoperative wound infection of left hip Qualifiers: Encounter type: initial encounter Qualified Code(s): T81.4XXA - Infection following a procedure, initial encounter Condition: Fair Report Scribed for: Earnestine Moreno Report Scribed by: Dahiana Luna Date of Report: 05/12/17 Time of Report: 15:11 Physician Review and Approval Statement: 05/12/17 15:11 Portions of this note were transcribed by a medical communication specialist. I personally performed a history, physical exam, medical decision making, and confirmed accuracy of information the transcribed note.
[2017-05-12 14:56] LABS: PLATELET COUNT 275 10^3/uL (150-400)
[2017-05-12] MEDS ORDERED: NS 1,000 ML IV ONE (15:10)
[2017-05-12] MEDS ORDERED: NS 2,500 ML IV ONE (15:25)
[2017-05-12] MEDS ORDERED: ONDANSETRON DISINTEGRATING 4 MG TAB PO PRN (15:41)
[2017-05-12] MEDS ORDERED: ONDANSETRON 4 MG/2 ML VIAL IVP PRN (15:41)
[2017-05-12] MEDS ORDERED: SENNOSIDES/DOCUSATE SODIUM TAB PO PRN (15:43)
--- NOTE | 2017-05-12 16:08 | ASMTCMCOM ---
CM Note CM Note Notes: CM received call from [facility] (transitional care) #[id number] re patient arriving to ER s/p recent hospitalization for LTHA on 04/27. Per chart review, patient has been admitted to the floor today. Patient was recovering at [facility] in [place] and will likely return there at discharge. CM to follow with D/C planning Date Signed: 05/12/2017 04:08 PM Electronically Signed By:Marianne Owens RN
[2017-05-12 16:39] LABS: CREATINE KINASE 166 IU/L (0-156)
--- NOTE | 2017-05-12 16:42 | GHP ---
[f rep st] HISTORY AND PHYSICAL DATE OF ADMISSION: 05/12/2017 HISTORY OF PRESENT ILLNESS: Ms. Johns is a pleasant 77-year-old female, who is postoperative day 15 from a left total hip arthroplasty. Her postoperative course has been significant for some for a fa ir amount of pain. She actually had an emergency department visit here on postoperative day 7 with i ncreased pain, and at that point in time, she had a lower extremity ultrasound showing no DVT, and a hip x-ray showing bilateral hip replacements that were felt to be unchanged. She has developed some fever and chills. She has pain in her right elbow, as well as in her left hip, and there is some garcia guinous drainage. It sounds like somebody mentioned to her that there was an odor from it, but I did not experience the odor when I did her bandage today. She has not had diarrhea. She has been somew hat constipated since her surgery. She notes that she did not have a decreased range of motion joanna red with a couple of days ago. Regarding her right elbow, she has been using it as a push-up from the seated position, and this feel s somewhat irritated. REVIEW OF SYSTEMS: A complete 10-point review of systems is conducted and negative except as noted i n the HPI. PAST MEDICAL AND SURGICAL HISTORY: Osteoarthritis and airway disease. She also had cervical spine s urgery. ALLERGIES: Codeine. HOME MEDICATIONS: Tylenol, aspirin, oxycodone, ascorbic acid, PreserVision, calcium carbonate, gabap entin, multivitamin, fish oil, oxycodone, senna, tramadol, and vitamin B complex. SOCIAL HISTORY: She lives in [place]. There is no tobacco and minimal alcohol. FAMILY HISTORY: Parents are . PHYSICAL EXAMINATION: PRESENTING VITAL SIGNS: Temperature is 37.3, blood pressure 130/60, pulse 105 , now 98; breathing 18 times a minute, 80% on room air, 94% on 2 L. GENERAL: No acute distress. HE ENT: Sclerae are anicteric. Oropharynx is clear. Mucous membranes are moist. NECK: Supple. No l ymphadenopathy or JVD. LUNGS: Clear to auscultation anterolaterally. HEART: S1, S2. Borderline t achycardic without murmur. ABDOMEN: Soft, nontender. Left lower extremity is diffusely edematous. There is sanguinous drainage from the wound with a little bit of skin breakdown and some carlos-incisio nal erythema. There is no fluctuance. Her right elbow shows some pinkness in an area about the size of her hand around her olecranon bursa. It is moderately edematous, but not ballotable. IMAGING STUDIES: Chest x-ray, interpreted by me, shows airway disease. I discussed the case with Dr Eufemia Head and Dr. Charley Moreno. LABORATORY DATA: White count 17 with a left shift. Hematocrit is 26, which is a little bit lower th an she had been. Platelets are 265. Venous lactate is 2.4. It has been repeat; it is now 1.2. Sod ium is 136, potassium 4.2, chloride 24, BUN 16, creatinine 1.1, glucose 142. CK is pending. ASSESSMENT/PLAN: A 77-year-old female presents with sepsis, likely wound infection, possible olecran on bursitis and concern for the possibility of prosthetic joint infection. 1. Sepsis: Source is either olecranon bursa or wound infection. Lactate is already coming down. S he has received vancomycin and the appropriate doses of intravenous fluids. 2. Wound infection: She has a postoperative wound infection. We will start her on vancomycin. Inf ectious Disease will see her. I think she needs imaging to sort out if there is a fluid collection a round her joint and if she in fact has joint infection. Orthopedics has been consulted as well. 3. Olecranon bursitis: Vancomycin and ultrasound to see if there is a fluid collection. It is not been aspirated. 4. Acute kidney injury: Mild, prerenal. We will follow. 5. Constipation: Start MiraLAX daily. 6. Prophylaxis: The patient had been on Xarelto, which was discontinued 2 days ago. I have written to start low-molecular rate heparin tomorrow afternoon; that is in the evening on the . That wi ll give Orthopedics time to perform an invasive procedure if needed. DISPOSITION: Inpatient status. /[id number]/MODL
[2017-05-12] MEDS: traMADol 50 MG TAB PO SCH ×2 (17:45→23:07)
[2017-05-12] MEDS: VANCOMYCIN HCL/NORMAL SALINE 250 ML IV SCH (17:46)
[2017-05-12] MEDS: GABAPENTIN 300 MG CAP PO SCH (20:03)
--- NOTE | 2017-05-12 20:21 | GCON ---
[f rep st] CONSULTATION INFECTIOUS DISEASE CONSULTATION REFERRING PHYSICIAN: Kamron Deleon MD REASON FOR CONSULTATION: Sepsis, possibly related to left hip postoperative infection versus right o lecranon septic bursitis. HISTORY OF PRESENT ILLNESS: Patient is a 77-year-old female who underwent left total hip arthroplast y on 04/27/2017 and with a remote past medical history in 2013 of MRSA skin and soft tissue infection , who I am asked to see in consultation for sepsis with concern for etiology related to either left h ip postoperative infection or right olecranon septic bursitis. Patient describes having intermittent drainage from the left hip wound beginning approximately 2 days postoperatively. She was seen in [facility] emergency department on 05/04/2017 with complaint of left hip pain and drainage. She underwent an ultrasound at that time which did not show evidence of DVT. The patient does note there were concern s that patient may have had bleeding into the soft tissues associated with use of postoperative Xarel to. The patient notes the swelling in her left lower extremity has decreased but is still significan t. She continues to have pain along the incision but does not have significant pain with range of mo tion of her hip. Over the last 2 days, she also notes right elbow pain which began after she was usi ng her right elbow to assist with standing. She did develop some abrasion over this area. Today, [facility] also noted the abrupt onset of shaking chills. This was associated with subjective fever. She has not experienced cough, shortness of breath, sore throat, nausea, vomiting, or diarrhea. She does no t have diffuse myalgias or arthralgias other than as outlined above. The nursing facility felt like an odor was present when her bandage was changed earlier today. She has been ambulating with a walke r. She currently is residing at [facility]. Evaluation in the emergency depar tment today has shown a white blood cell count of 17,000 with an initial elevated venous lactate of 2 .4, which has decreased to 1.2. Patient had blood cultures obtained as well as a swab from the left hip. She has been started empirically on vancomycin. Given the above findings, Infectious Disease c onsultation is requested for assistance with her ongoing management. PAST MEDICAL HISTORY: Osteoarthritis, as above. PAST SURGICAL HISTORY: Bilateral hip arthroplasty, cervical fusion, cholecystectomy, carpal tunnel s yndrome. CURRENT MEDICATIONS: Prior to admission include gabapentin 600 mg orally twice daily. Current medic ations include vancomycin 1 g IV q.12 hours, vitamin B 1 p.o. daily, Ultram 50 mg p.o. q.6 hours, Oxy Contin 10 mg orally twice daily, PreserVision 1 p.o. daily, fish oil 1000 mg p.o. daily, multivitamin p.o. daily, Neurontin 600 mg p.o. b.i.d. Lovenox 40 mg subcu daily, calcium with vitamin D 500 mg p .o. daily, vitamin C 1000 mg p.o. daily. ALLERGIES: Codeine with unclear reaction. SOCIAL HISTORY: Patient does not smoke and drinks minimal alcohol. No drug use. FAMILY HISTORY: Both parents with longevity. REVIEW OF SYSTEMS: Outside that noted in the HPI, the remainder of a 10 system review is unremarkabl e. PHYSICAL EXAMINATION: VITAL SIGNS: Temperature 36.9, heart rate 103, respiratory rate 16, blood pre ssure 136/72, respiratory rate infection, oxygen saturation 91% on room air. GENERAL: Patient is an obese female in no acute distress. She appears nontoxic. HEENT: There is no scleral icterus, conj unctival injection, or conjunctival petechiae. The oropharynx shows dry mucous membranes with dentit ion being in good repair. There is no nasal discharge. There is no tenderness over the frontal, max illary, or mastoid area. NECK: Supple without palpable lymphadenopathy or thyromegaly. CHEST: Harvey ar to auscultation bilaterally without adventitious sounds. The respiratory effort is normal. CARDI OVASCULAR: Tachycardic with a 2/6 systolic ejection murmur heard at the left upper sternal border. No gallops or rubs are noted. ABDOMEN: Obese, nontender, nondistended. Difficult to assess for org anomegaly based on obesity. MUSCULOSKELETAL: The left lower extremity shows 3+ edema from the hip t o the foot. The anterior hip incision shows surrounding erythema and induration with some bloody dis charge centrally and some wound dehiscence with necrotic fat superiorly. There is no palpable fluctu ance or expressible purulence. There is minimal pain with range of motion of the joint. Ecchymosis is present extending into the anterior calf. The right elbow shows evidence of palpable olecranon bu rsal fluid with overlying erythema, warmth, and tenderness. Faint erythema and edema extend onto the forearm for approximately 10 cm. There is no pain with range of motion of the elbow joint. SKIN: See musculoskeletal exam for details. There are no stigmata of endocarditis. The skin is warm and d ry to touch. NEUROLOGIC: Patient is alert and interacts appropriately with examiner. Cranial nerve s 2-12 are grossly intact. Sensation is grossly intact. LYMPHATICS: No cervical or supraclavicular nodes. No lymphangitis in the left thigh. LABORATORY DATA: White blood cell count 17.1, hematocrit 26.1, platelets 275, neutrophils 68%, bands 8%, lymphocytes 9%, monocytes 15%. Creatinine 1.1. CPK 166. Venous lactate 2.4 and now decreased to 1.2. Blood cultures x2 sets are pending. Gram stain and culture of left hip are pending. Chest x-ray shows bibasilar atelectasis. IMPRESSION: Sepsis with etiologies of consideration including right-sided septic olecranon bursitis, which is present clinically versus left postoperative hip infection versus combination of the two. Clinical findings of the right elbow are consistent with septic olecranon bursitis, which is likely d ue to Staphylococcus aureus with methicillin-resistant Staphylococcus aureus consideration given prio r history. In the setting of rigors, concomitant bacteremia is a consideration. Left hip infection post total hip arthroplasty is also possible, although clinical findings may be due to postoperative hematoma or seroma which could be bland or infectious in etiology. Lack of irritability with range o f motion argues against joint involvement, although this also is of consideration. RECOMMENDATIONS: 1. Agree with empiric vancomycin. 2. Await orthopedic consultation; I have discussed the case with them with plans for bursal aspirati on and ultrasound of the left anterior thigh around the surgical incision as well as MRI of the hip t o assess for joint effusion which will be performed with metal suppression. 3. Follow up blood cultures as available. 4. Follow clinical response to above measures with additional decisions based on imaging and culture findings. Above findings and plan were discussed with Dr. Deleon and orthopedic PA Austin Sweet. Thank you for this consultation. We will continue to follow the patient with you. /[id number]/MODL
[2017-05-12] MEDS: oxyCODONE IR 5 MG TAB PO PRN ×2 (21:36→23:14)
[2017-05-12] MEDS ORDERED: NS 500 ML IV ONE (22:57)
[2017-05-12] MEDS: ACETAMINOPHEN 325 MG TAB PO PRN (23:07)
[2017-05-13] MEDS: VANCOMYCIN HCL/NORMAL SALINE 250 ML IV SCH ×2 (04:07→16:20)
[2017-05-13 05:00] LABS: PLATELET COUNT 233 10^3/uL (150-400)
[2017-05-13 05:08] LABS: INR 1.32 (0.83-1.16); PROTIME(PATIENT) 16.6 SEC (12.0-15.0)
[2017-05-13] MEDS: traMADol 50 MG TAB PO SCH ×4 (05:11→23:00)
[2017-05-13] MEDS: OMEGA-3 FATTY ACIDS 1,000 MG CAP PO SCH (08:42)
[2017-05-13] MEDS: GABAPENTIN 300 MG CAP PO SCH ×2 (08:42→20:43)
[2017-05-13] MEDS: ASCORBIC ACID 500 MG TAB PO SCH (08:42)
[2017-05-13] MEDS: MULTIVITAMINS 1 EACH TAB PO SCH (08:42)
[2017-05-13] MEDS: CALCIUM CARB W/VIT D 500 MG TAB PO SCH (08:42)
[2017-05-13] MEDS: PRESERVISION AREDS2 FORMULA EYE VIT 1 EACH PO SCH (08:42)
[2017-05-13] MEDS: VITAMIN B COMPLEX 1 EA CAP/TAB PO SCH (08:43)
[2017-05-13] MEDS: oxyCODONE IR 5 MG TAB PO PRN ×3 (08:43→15:46)
[2017-05-13] MEDS: POLYETHYLENE GLYCOL 3350 17 GM PKT PO SCH (08:43)
[2017-05-13] MEDS ORDERED: Herbals/Supplements -Info Only PO SCH (09:00)
--- NOTE | 2017-05-13 09:46 | PDMN ---
Medical Necessity Medical necessity: Pt meets IP criteria per MD; est los >2 mn for eval/tx of sepsis, possibly r/t L MELBA postop wound infection vs R olecranon septic bursitis ; admit for ID, Ortho & Wound Care consults, IV abx, blood cxs, further imaging & therapies; hx recent L MELBA; per H&P & order 05/12/17
[2017-05-13] MEDS ORDERED: LIDOCAINE 1% 300 MG/30 ML SDV ONE (09:53)
--- NOTE | 2017-05-13 12:53 | SOAPPROG ---
SOAP Progress Note Assessment/Plan: Assessment: Plan: 1. R elbow - olecranon bursitis, I was able to aspirate what appeared to be pus will be sent for culture 2. L Hip infection - awaiting MRI results, infection may involve the hardware, Dr. Zamarripa is aware, may require washout and antibiotic spacer 05/13/17 12:51 Subjective: Admitted last night for possible infection L hip, s/p L MELBA. Also complaint of R elbow bursitis, question of infection. Objective: Vital Signs Temp Pulse Resp BP Pulse Ox 37.9 C 103 H 16 102/47 L 98 05/13/17 11:16 05/13/17 11:16 05/13/17 11:16 05/13/17 11:16 05/13/17 11:16 Laboratory Results 05/13/17 04:49 05/13/17 04:49 05/12/17 05/13/17 05/14/17 05:59 05:59 05:59 Intake Total 2500 Output Total 300 Balance 2200 PT 16.6 SEC (12.0-15.0) H 05/13/17 04:49 INR 1.32 (0.83-1.16) H 05/13/17 04:49 R elbow - moderate to severe erythema, bursitis, appears infected L hip - some dehiscence of the wound on upper portion, pus can be expressed, possible fluid collection under the incision, hip shows no increase in pain with passive or active movement. - Time Spent With Patient Time Spent With Patient: 20 - Pending Discharge Pending Discharge Within 24 Hours: No Pending Discharge Within 48 Hours: No ICD10 Worksheet Patient Problems: Problems Problem Status Onset Olecranon bursitis of right elbow Acute Postoperative wound infection of left hip Acute Arthritis of left hip Acute chronic disease mgmt/transitional care Acute
--- NOTE | 2017-05-13 13:42 | HOSPPROG ---
Hospitalist Progress Note Assessment/Plan: # Sepsis - 2/2 septic bursitis - pt received IVF resuscitation and empiric abx overnight BCx and aspirate Cx from admission - NGTD - cont empiric abx and supportive care # Acute septic bursitis +/- infected joint hardware - US (reviewed) shows fluid collection associated with surgical incision - MRI ordered - bursa aspirated toay - cont IV abx - monitor cultures - developing plan with Ortho and ID # Acute leukocytosis - WBC 21 -2/2 above infection - monitor cultures and continue current abx # EZEQUIEL - suspect pre-renal creatinine 1.1 -> 0.9 with IVF overnight - cont to follow # RAD - CXR (personally reviewed adn interpreted) no infiltrates oxygen saturations 92% on RA - supportive care # proph - lovenox # diet- regular # dispo- > 2MN as the patient requires diagnostic work up and possible surgical washout of post-surgical wound infection I have discussed the case with ID - we will continue current abx Subjective: nervous Objective: Vital Signs Temp Pulse Resp BP Pulse Ox 37.9 C 103 H 16 102/47 L 98 05/13/17 11:16 05/13/17 11:16 05/13/17 11:16 05/13/17 11:16 05/13/17 11:16 Laboratory Results 05/13/17 04:49 05/13/17 04:49 05/12/17 05/13/17 05/14/17 05:59 05:59 05:59 Intake Total 2500 Output Total 300 Balance 2200 PT 16.6 SEC (12.0-15.0) H 05/13/17 04:49 INR 1.32 (0.83-1.16) H 05/13/17 04:49 - Physical Exam Constitutional: obese Eyes: anicteric sclera Ears, Nose, Mouth, Throat: moist mucous membranes Cardiovascular: regular rate and rhythym Respiratory: no respiratory distress, no rales or rhonchi Gastrointestinal: normoactive bowel sounds Genitourinary: no bladder fullness Skin: warm Musculoskeletal: No asymmetric calves Neurologic: AAOx3 Psychiatric: interacting appropriately Lymph, Heme, Immunologic: no cervical LAD ICD10 Worksheet Patient Problems: Problems Problem Status Onset Olecranon bursitis of right elbow Acute Postoperative wound infection of left hip Acute Arthritis of left hip Acute chronic disease mgmt/transitional care Acute
[2017-05-13] MEDS: CEFEPIME HCL 1 GM in NS 50 ML IV SCH (15:36)
--- NOTE | 2017-05-13 15:50 | PCMIDPN ---
Assessment/Plan: Assessment/Plan: * Sepsis: Clinical findings consistent with right olecranon septic bursitis which is likely due to Staphylococcus aureus. MRSA consideration given remote history of MRSA in 2014. Bursa was aspirated by Orthopedic surgery earlier today with findings currently pending - Arm is improved clinically. Left- sided total hip arthroplasty infection or infected hematoma also potential contributor - persistent fever and prominent leukocytosis more concerning for this entity. Bloody fluid aspirated from fluid collection identified on ultrasound adjacent to left hip incision with Gram stain showing no organisms and culture pending. Wound culture obtained in ED yesterday with growth of gram -negative rods of unclear significance - could represent colonization although in the setting of underlying hematoma could also be consistent with true pathogen. Will add cefepime and continue vancomycin. Assess vancomycin trough with pm dose tomorrow. Await MRI of hip which may help assess extent of hematoma and if penetrates into joint or if joint effusion present. May require incision and drainage and hardware removal for definitive resolution. Time spent, 35 minutes, of which greater than half was spent in coordination of care regarding sepsis, septic olecranon bursitis, and possible left hip infected hematoma or infection of MELBA. 05/13/17 15:44 05/13/17 16:11 05/13/17 16:16 Subjective: Patient with fever and chills overnight. Hip pain adjacent to incision. Able to walk to bathroom without difficulty and pain not worsened with movement. Elbow feels somewhat better. Elbow was aspirated earlier today with description of purulent drainage removed. Thigh collection adjacent to incision also aspirated with return of bloody fluid. Objective: Vital Signs Temp Pulse Resp BP Pulse Ox 37.9 C 103 H 16 102/47 L 98 05/13/17 11:16 05/13/17 11:16 05/13/17 11:16 05/13/17 11:16 05/13/17 11:16 Microbiology 05/13/17 01:30 Gram Stain - Final Hip - Aspirate Laboratory Results 05/13/17 04:49 05/13/17 04:49 05/12/17 05/13/17 05/14/17 05:59 05:59 05:59 Intake Total 2500 Output Total 300 Balance 2200 Vancomycin # 1 Blood cultures x2 pending Wound culture with gram-negative rods Hematoma aspirate Gram stain negative Tm 39.4 - Physical Exam General Appearance: alert, no apparent distress, non-toxic EENT: No conjunctival petechiae Respiratory: lungs clear, No respiratory distress Cardiac/Chest: regular rate, rhythm, systolic murmur ( 2/6 left upper sternal border) Extremities: inflammation ( left anterior hip with less prominent erythema; small amount of blood expressed from incision line; eschar with thick yellow slough superiorly; no irritability with range of motion), other ( right elbow with decreased erythema with residual forearm edema present; palpable bursal fluid remains; small area of abraded skin present) Abdomen: non-tender, No distended ICD10 Worksheet Patient Problems: Problems Problem Status Onset Olecranon bursitis of right elbow Acute Postoperative wound infection of left hip Acute Arthritis of left hip Acute chronic disease mgmt/transitional care Acute
[2017-05-13] MEDS ORDERED: ENOXAPARIN 40 MG/0.4 ML SYR SC SCH (21:00)
[2017-05-14] MEDS: CEFEPIME HCL 1 GM in NS 50 ML IV SCH (04:06)
[2017-05-14] MEDS: ACETAMINOPHEN 325 MG TAB PO PRN (04:16)
[2017-05-14] MEDS: VANCOMYCIN HCL/NORMAL SALINE 250 ML IV SCH ×2 (04:47→15:30)
--- NOTE | 2017-05-14 05:41 | HOSPPROG ---
Hospitalist Progress Note Assessment/Plan: Cross cover: Alerted by RN about Hgb of 6.5 on AM labs. Only sign of bleeding seems to be oozing from her wound, she is asymptomatic aside from mild tachycardia. I will order 1 u pRBC and change DVT prophylaxis from Lovenox to SCDs. Objective: Vital Signs Temp Pulse Resp BP Pulse Ox 36.9 C 103 H 20 120/62 90 L 05/14/17 04:00 05/14/17 04:00 05/14/17 04:00 05/14/17 04:00 05/14/17 04:00 Microbiology 05/13/17 01:30 Gram Stain - Final Hip - Aspirate Laboratory Results 05/14/17 04:49 05/14/17 04:49 05/12/17 05/13/17 05/14/17 05:59 05:59 05:59 Intake Total 2500 Output Total 300 300 Balance 2200 -300 PT 16.6 SEC (12.0-15.0) H 05/13/17 04:49 INR 1.32 (0.83-1.16) H 05/13/17 04:49 ICD10 Worksheet Patient Problems: Problems Problem Status Onset Olecranon bursitis of right elbow Acute Postoperative wound infection of left hip Acute Arthritis of left hip Acute chronic disease mgmt/transitional care Acute
[2017-05-14] MEDS: traMADol 50 MG TAB PO SCH ×3 (06:06→17:47)
[2017-05-14] MEDS: POLYETHYLENE GLYCOL 3350 17 GM PKT PO SCH (08:12)
[2017-05-14] MEDS: GABAPENTIN 300 MG CAP PO SCH (08:13)
[2017-05-14] MEDS: ASCORBIC ACID 500 MG TAB PO SCH (08:13)
[2017-05-14] MEDS: VITAMIN B COMPLEX 1 EA CAP/TAB PO SCH (08:13)
[2017-05-14] MEDS: PRESERVISION AREDS2 FORMULA EYE VIT 1 EACH PO SCH (08:13)
[2017-05-14] MEDS: MULTIVITAMINS 1 EACH TAB PO SCH (08:13)
[2017-05-14] MEDS: CALCIUM CARB W/VIT D 500 MG TAB PO SCH (08:13)
[2017-05-14] MEDS: OMEGA-3 FATTY ACIDS 1,000 MG CAP PO SCH (08:13)
--- NOTE | 2017-05-14 08:47 | PCMIDPN ---
Assessment/Plan: # Sepsis: generally improved. Source RUE cellulitis/septic bursitis and possibly septic L MELBA # R Arm Cellulitis and septic bursitis: this is my first exam but patient reports improvement, still with significant edema R arm and faint erythema elbow , lower upper arm and entire lower arm. WBC trending down and AF since 05/12 evening --continue IV vancomycin, indication : small amt purulence from elbow + h/o MRSA --check trough this afternoon, Cr normal today # L hip, infected hematoma with E coli, hip joint aspirated today to assess depth of infection --Wound cx did show PsA, with persistent concern PsA could grow out of cx that are only 1 day old; therefore will increase dose cefepime to 2gm IV q12 for CrCl 51 for coverage of PsA as well as potential septic arthritis of L MELBA --no matter depth of infection, likely needs washout # Remote h/o MRSA: okay not to isolate at this point since no recent specimens meds vancomycin 1gm IV q12, #2 cefepime 1gm IV q12 Microbiology 05/13/17 01:30 Hip - Aspirate Gram stain neg; cx E coli 05/12/17 15:25 Blood Cx (2) NGTD 05/12/17 14:44 Hip - Swab Wound Culture: Proteus Species; Gram Neg Eran Lactose Copy Operator Subjective: patient feeling better no specific c/o Objective: Vital Signs Temp Pulse Resp BP Pulse Ox 36.8 C 90 16 100/59 L 95 05/14/17 08:04 05/14/17 08:04 05/14/17 07:26 05/14/17 08:04 05/14/17 08:04 Microbiology 05/13/17 01:30 Gram Stain - Final Hip - Aspirate Laboratory Results 05/14/17 04:49 05/14/17 04:49 05/13/17 05/14/17 05/15/17 05:59 05:59 05:59 Intake Total 2500 Output Total 300 300 Balance 2200 -300 - Physical Exam General Appearance: alert, no apparent distress, obese EENT: pale conjunctiva Respiratory: lungs clear, No accessory muscle use Cardiac/Chest: regular rate, rhythm Extremities: swelling (L thigh and hip (reportedly improved)), erythema (R upper arm : swelling including hand, faint erythema lower arm, elbow, lower upper arm. +warmth, minimal fluctuance @ elbow.), other (L hip incision with some mild to mod incision necrosis proximally, no erythema) Peripheral Pulses: 1+: dorsalis-pedis (L), 2+: dorsalis-pedis (R) Abdomen: non-tender, soft Skin: pallor, No rash Neuro/Psych: alert, normal mood/affect, oriented x 3 - Time Spent With Patient Time Spent with Patient: greater than 35 minutes Time Spent with Patient: Greater than 35 minutes spent on this patients care, greater than 50% of time spent counseling, educating, and coordinating care regarding the above mentioned plan. ICD10 Worksheet Patient Problems: Problems Problem Status Onset Olecranon bursitis of right elbow Acute Postoperative wound infection of left hip Acute Arthritis of left hip Acute chronic disease mgmt/transitional care Acute
[2017-05-14] MEDS ORDERED: LIDOCAINE 1% 300 MG/30 ML SDV ONE (09:20)
[2017-05-14] MEDS ORDERED: IOPAMIDOL (ISOVUE 370) 100 ML BTL IV ONE (09:41)
[2017-05-14] MEDS: oxyCODONE IR 5 MG TAB PO PRN (11:38)
[2017-05-14] MEDS ORDERED: CEFEPIME HCL IV SCH (12:10)
[2017-05-14] MEDS ORDERED: NS IV SCH (12:10)
[2017-05-14] MEDS ORDERED: CEFEPIME HCL 2 GM in NS 100 ML IV SCH (12:30)
--- NOTE | 2017-05-14 14:08 | HOSPPROG ---
Hospitalist Progress Note Assessment/Plan: # Sepsis - 2/2 septic bursitis and infected post-operative left hip- pt received IVF resuscitation and empiric abx overnight BCx and aspirate Cx from admission - NGTD - cont empiric abx and supportive care # Acute Right Arm Cellulitis/septic bursitis -there was purulence on admit from the elbow - no cultures sent erythema at elbow and upper arm improved - hand seems more swollen with increased erythema in the dorsum of hand- Blood cultures NGTD -continue IV vancomycin # Acute infected Left hematoma/wound infection -hip joint aspirate yesterday with E.Coli - contacted Ortho to notify - made NPO for washout - d/w with ID will increase dosing of cefepime to 2g Q12 # Acute leukocytosis - WBC 21 -> 16 2/2 above infection - monitor cultures and continue current abx # EZEQUIEL - suspect pre-renal creatinine 1.1 -> 0.8 with IVF on admit - cont to follow # RAD - CXR (personally reviewed adn interpreted) no infiltrates oxygen saturations 92% on RA - supportive care # proph - lovenox # diet- regular # dispo- > 2MN as the patient requires diagnostic work up and possible surgical washout of post-surgical wound infection I have discussed the case with ID - we will increase Cefepime dosing today - will cover pseudomonas in hip swab and likely deeper E.coli infection Subjective: left hip with more pain Objective: Vital Signs Temp Pulse Resp BP Pulse Ox 36.8 C 90 16 100/59 L 95 05/14/17 08:04 05/14/17 08:04 05/14/17 07:26 05/14/17 08:04 05/14/17 08:04 Microbiology 05/13/17 01:30 Gram Stain - Final Hip - Aspirate 05/14/17 09:45 Gram Stain - Final Hip - Aspirate Laboratory Results 05/14/17 04:49 05/14/17 04:49 05/13/17 05/14/17 05/15/17 05:59 05:59 05:59 Intake Total 2500 Output Total 300 300 1 Balance 2200 -300 -1 PT 16.6 SEC (12.0-15.0) H 05/13/17 04:49 INR 1.32 (0.83-1.16) H 05/13/17 04:49 - Physical Exam Constitutional: obese Eyes: anicteric sclera Ears, Nose, Mouth, Throat: moist mucous membranes Cardiovascular: regular rate and rhythym Respiratory: no respiratory distress, no rales or rhonchi Gastrointestinal: normoactive bowel sounds, soft, non-tender abdomen Genitourinary: no bladder fullness Skin: warm, other (erythema of right hand/arm/elbow) Musculoskeletal: No asymmetric calves Neurologic: AAOx3 Psychiatric: interacting appropriately Lymph, Heme, Immunologic: no cervical LAD ICD10 Worksheet Patient Problems: Problems Problem Status Onset Olecranon bursitis of right elbow Acute Postoperative wound infection of left hip Acute Arthritis of left hip Acute chronic disease mgmt/transitional care Acute
[2017-05-14] MEDS: CEFEPIME HCL 2 GM in D5W 100 ML IV SCH (14:17)
--- NOTE | 2017-05-14 15:29 | ASMTCMCOM ---
CM Note CM Note Notes: Pt has E Coli in L hip hematoma, may go for washout. Unclear when she will go back to rehab, pt didn't really want to discuss it. CM will continue to follow. Date Signed: 05/14/2017 03:29 PM Electronically Signed By:Lory Guillaume RN
[2017-05-14] MEDS ORDERED: ROPIVACAINE 0.2% 80 MG, EPINEPHrine 0.2 MG, KETOROLAC TROMETHAMINE 30 MG in SYRINGE 0 ML IU ONE (16:40)
[2017-05-14] MEDS ORDERED: FAMOTIDINE 20 MG TAB PO ONE (16:40)
[2017-05-14] MEDS ORDERED: POVIDONE-IODINE 20 ML in SODIUM CL IRRIG SOLUTION 500 ML IRR ONE (16:40)
[2017-05-14] MEDS ORDERED: TRANEXAMIC ACID 1,000 MG in NS 100 ML IV ONE (16:40)
[2017-05-14] MEDS ORDERED: BUPIVACAINE/EPI 0.5% 30 ML SDV ONE (18:51)
[2017-05-14] MEDS ORDERED: BACITRACIN 50,000 UNITS/10 ML SYR IRR ONE ×2 (18:52→20:44)
[2017-05-14] MEDS ORDERED: POLYMYXIN B SULFATE 500,000 UNIT/10 ML SYR IRR ONE ×3 (18:52→21:39)
--- NOTE | 2017-05-14 19:16 | PDANEPAE ---
ANE History of Present Illness sepsis, infected L MELBA, infected R elbow. Pt to have I&D and partial L hip arthroplasty revision. ANE Past Medical History - Cardiovascular History Hx Hypertension: No Hx Arrhythmias: No Hx Chest Pain: No Hx Coronary Artery / Peripheral Vascular Disease: No Hx CHF / Valvular Disease: No Hx Palpitations: No - Pulmonary History Hx COPD: No Hx Asthma/Reactive Airway Disease: No Hx Recent Upper Respiratory Infection: No Hx Oxygen in Use at Home: No Hx Sleep Apnea: No Sleep Apnea Screening Result - Last Documented: Negative Pulmonary History Comment: Recent CXR with B basilar opacities - Neurologic History Hx Cerebrovascular Accident: No Hx Seizures: No Hx Dementia: No - Endocrine History Hx Diabetes: No Hypothyroid: No Obesity: severe (BMI 40) - Renal History Hx Renal Disorders: No - Liver History Hx Hepatic Disorders: No - Neurological & Psychiatric Hx Hx Neurological and Psychiatric Disorders: Yes Neurological / Psychiatric History Comment: chiari malformation - Cancer History Hx Cancer: No - Congenital Disorder History Hx Congenital Disorders: No - GI History GERD: no Hx Gastrointestinal Disorders: No - Other Health History Other Health History: eczma on hands. Severely anemic, received 1 U PRBC today for HCt of 21. early sepsis - Chronic Pain History Chronic Pain: No - Surgical History Prior Surgeries: carpal tunnel, cervical fusion, cholecystectomy ANE Review of Systems Review of Systems: - Exercise capacity METS (RN): 2 METS (secondary to hip pain) ANE Patient History - Allergies Allergies/Adverse Reactions: codeine [Codeine] Allergy (Mild, Verified 05/04/17 16:34) Rash - Home Medications Home Medications: Gabapentin [Neurontin 300 MG (*)] 600 mg PO BID 11/23/09 [Last Taken 05/12/17 09 :00] Ascorbic Acid [Vitamin C 500 mg (*)] 1,000 mg PO DAILY 03/26/17 [Last Taken ] Aspirin [Aspirin 81mg (*)] 81 mg PO DAILY 03/26/17 [Last Taken 05/12/17] C/E/Zn/Cu/OM3/DHA/EPA/LUT/ZEAX [Preservision Areds 2 Softgel] 1 each PO DAILY [Last Taken 05/12/17] Calcium Carbonate/Vitamin D3 [CALCIUM 600 + VIT D TABLET] 1 each PO DAILY [Last Taken 05/12/17] Herbals/Supplements -Info Only 1 ea PO DAILY 03/26/17 [Last Taken 05/12/17] Multivitamins [Multivitamin (*)] 1 each PO DAILY 03/26/17 [Last Taken 05/12/17] Rainbow-3 Fatty Acids [Fish Oil 1000 mg (*)] 1,000 mg PO DAILY 03/26/17 [Last Taken 05/12/17] Vitamin B Complex [B Complex] 1 each PO DAILY 03/26/17 [Last Taken 05/12/17] Acetaminophen [Tylenol 325mg (*)] 650 mg PO Q6 PRN 05/12/17 [Last Taken Unknown] Sennosides/Docusate Sodium [Senokot-S] 1 - 2 tab PO BID PRN 05/12/17 [Last Taken 05/12/17 08:00] oxyCODONE HCL [Oxycontin] 10 mg PO BID PRN 05/12/17 [Last Taken 05/12/17 08:00] oxyCODONE IR [Oxycodone Ir (*)] 5 - 10 mg PO Q4HRS PRN 05/12/17 [Last Taken 10:00] - NPO status NPO Since - Liquids (Date): 05/14/17 NPO Since - Liquids (Time): 11:15 NPO Since - Solids (Date): 05/14/17 NPO Since - Solids (Time): 11:15 - Anes Hx Anes Hx: no prior problems (difficult laryngoscopy, grade III view) - Smoking Hx Smoking Status: Former smoker (stopped 40 years ago) - Family Anes Hx Family Anes Hx: none Family Hx Anesthesia Complications: none ANE Labs/Vital Signs - Labs Result Diagrams: 05/14/17 04:49 05/14/17 04:49 - Vital Signs Blood Pressure: 121/59 Heart Rate: 94 Respiratory Rate: 16 O2 Sat (%): 94 Height: 154.94 cm Weight: 96.6 kg ANE Physical Exam - Airway Neck exam: decreased ROM Mallampati Score: Class 3 Mouth exam: normal dental/mouth exam - Pulmonary Pulmonary: clear to auscultation - Cardiovascular Cardiovascular: regular rate and rhythym - ASA Status ASA Status: III, E ANE Anesthesia Plan Anesthesia Plan: general endotracheal anesthesia (Discussed possible need for PRBC transfusion, need for aggressive perioperative pulmonary care. Questions answed.)
[2017-05-14] MEDS ORDERED: fentaNYL 250 MCG/5 ML INJ ONE (19:22)
[2017-05-14] MEDS ORDERED: PROPOFOL 200 MG/20 ML VIAL ONE ×4 (19:22→22:09)
[2017-05-14] MEDS ORDERED: ROCURONIUM 50 MG/5 ML VIAL ONE (19:22)
[2017-05-14] MEDS ORDERED: DEXAMETHASONE 4 MG/ML VIAL ONE (19:22)
[2017-05-14] MEDS ORDERED: RANITIDINE 50 MG/2 ML VIAL ONE (19:22)
[2017-05-14] MEDS ORDERED: TRANEXAMIC ACID 3,000 MG/50 ML BAG IRR ONE (20:16)
[2017-05-14] MEDS ORDERED: ONDANSETRON 4 MG/2 ML VIAL ONE (21:54)
[2017-05-14] MEDS ORDERED: fentaNYL 100 MCG/2 ML INJ ONE ×3 (22:08→23:13)
[2017-05-14] MEDS ORDERED: SUGAMMADEX SODIUM 200 MG/2 ML VIAL IVP ONE (22:32)
[2017-05-14] MEDS ORDERED: NALOXONE HCL 0.4 MG/ML INJ IVP PRN (22:33)
--- NOTE | 2017-05-14 22:55 | POSTOPPROG ---
Post Op Note Date of Operation: 05/14/17 Surgeon: Arsen Arcos Certified Tower Climber: ERICK Valladares and Gilberto Mccall CSA Anesthesiologist: Phillip Salgado Anesthesia: GET(General Endotracheal) Pre-op Diagnosis: Infected left MELBA and right olecranon bursa Post-op Diagnosis: same Procedure: Left hip I&D, femoral stem/head and polyethylene exchange; Right elbow I&D Inf/Abcess present in the surg proc area at time of surgery?: Yes Depth: Deep Incisional (Fascial) (gross purulence deep to TFL fascia of left hip and bursa of right olecranon) EBL: 100-500 Total fluids administered: 1unit PRBCs Complications: none Drains: Hemovac, Wound Vac
[2017-05-14] MEDS: fentaNYL 100 MCG/2 ML INJ IVP PRN ×4 (22:58→23:29)
[2017-05-14] MEDS ORDERED: HYDROmorphONE/DILAUDID 1 MG/ML INJ ONE (23:00)
[2017-05-14] MEDS: HYDROmorphONE/DILAUDID 1 MG/ML INJ IVP PRN ×3 (23:02→23:29)
[2017-05-15] MEDS ORDERED: TEMAZEPAM 15 MG CAP PO PRN (00:02)
[2017-05-15] MEDS ORDERED: METOCLOPRAMIDE 10 MG/2 ML VIAL IVP PRN (00:02)
[2017-05-15] MEDS ORDERED: DIPHENOXYLATE/ATROPINE LOMOTIL 1 TAB PO PRN (00:02)
[2017-05-15] MEDS ORDERED: PROMETHAZINE HCL 25 MG/ML INJ IVP PRN (00:02)
[2017-05-15] MEDS ORDERED: diphenhydrAMINE 25 MG CAP PO PRN (00:02)
--- NOTE | 2017-05-15 00:17 | POSTANESTH ---
Post Anesthetic Evaluation Cardiovascular Status: Similar to Pre-Op Cond Respiratory Status: Similar to Pre-op Cond. Level of Consciousness/Mental Status: Can Participate in Eval Pain Control: Adequate, Prn Tx Ordered Nausea/Vomiting Control: Adequate, Prn Tx Ordered Complications Possibly Related to Anesthesia: None Noted
[2017-05-15] MEDS ORDERED: LR 1,000 ML IV SCH (00:30)
[2017-05-15] MEDS: GABAPENTIN 300 MG CAP PO SCH ×3 (01:10→20:32)
[2017-05-15] MEDS: CEFEPIME HCL 2 GM in D5W 100 ML IV SCH ×2 (01:11→12:04)
[2017-05-15] MEDS: traMADol 50 MG TAB PO SCH ×4 (01:11→17:01)
[2017-05-15] MEDS: VANCOMYCIN HCL/NORMAL SALINE 250 ML IV SCH ×2 (04:28→17:01)
[2017-05-15] MEDS: VITAMIN B COMPLEX 1 EA CAP/TAB PO SCH (08:26)
[2017-05-15] MEDS: MULTIVITAMINS 1 EACH TAB PO SCH (08:26)
[2017-05-15] MEDS: CALCIUM CARB W/VIT D 500 MG TAB PO SCH (08:26)
[2017-05-15] MEDS: ASCORBIC ACID 500 MG TAB PO SCH (08:27)
[2017-05-15] MEDS: ENOXAPARIN 40 MG/0.4 ML SYR SC SCH (08:27)
[2017-05-15] MEDS: OMEGA-3 FATTY ACIDS 1,000 MG CAP PO SCH (08:27)
[2017-05-15] MEDS: PRESERVISION AREDS2 FORMULA EYE VIT 1 EACH PO SCH (08:27)
[2017-05-15] MEDS: POLYETHYLENE GLYCOL 3350 17 GM PKT PO SCH (08:28)
[2017-05-15] MEDS: oxyCODONE IR 5 MG TAB PO PRN ×3 (08:31→22:29)
--- NOTE | 2017-05-15 09:11 | HOSPPROG ---
Hospitalist Progress Note Assessment/Plan: #Sepsis: resolved #Right arm cellulitis/septic bursitis: vancomycin/ I&D 05/14 #Acute infected left hip hematoma (E Coli). High-dose Cefepime and Vanc. Appreciate ID input -I&D with vac 05/14 #Acute pain: well-controlled #Constipation: add bowel regimen #EZEQUIEL: resolved #RAD: she denies history #Deconditioning: PT/OT #Diet: regular #DVT ppx: Lovenox #Disp: cont inpt admission with IV abx Subjective: min pain in arm today Objective: Vital Signs Temp Pulse Resp BP Pulse Ox 36.6 C 84 16 105/58 L 94 05/15/17 07:58 05/15/17 07:58 05/15/17 07:58 05/15/17 07:58 05/15/17 07:58 Microbiology 05/13/17 01:30 Gram Stain - Final Hip - Aspirate 05/14/17 22:00 Gram Stain - Final Arm - Tissue 05/14/17 22:00 Gram Stain - Final Arm - Eswab 05/14/17 08:20 Gram Stain - Final Hip - Tissue 05/14/17 08:20 Gram Stain - Final Hip - Tissue 05/14/17 08:20 Gram Stain - Final Hip - Eswab 05/14/17 08:20 Gram Stain - Final Hip - Eswab 05/14/17 22:00 Mycobacterial Smear (CORNEL) - Final Arm - Eswab Mycobacterial Culture - Final 05/14/17 08:20 Mycobacterial Smear (CORNEL) - Final Hip - Eswab Mycobacterial Culture - Final 05/14/17 08:20 Mycobacterial Smear (CORNEL) - Final Hip - Eswab Mycobacterial Culture - Final 05/14/17 09:45 Gram Stain - Final Hip - Aspirate Laboratory Results 05/15/17 04:24 05/15/17 04:24 05/14/17 05/15/17 05/16/17 05:59 05:59 05:59 Intake Total 1368 Output Total 300 861 Balance -300 507 PT 16.6 SEC (12.0-15.0) H 05/13/17 04:49 INR 1.32 (0.83-1.16) H 05/13/17 04:49 - Physical Exam Constitutional: obese Eyes: PERRL Ears, Nose, Mouth, Throat: moist mucous membranes, hearing normal Cardiovascular: regular rate and rhythym, no murmur, rub, or gallop Respiratory: no respiratory distress Gastrointestinal: normoactive bowel sounds, soft, non-tender abdomen Genitourinary: No webb in urethra Skin: warm Musculoskeletal: other (right elbow stapled with swelling and erythema. No TTP. Left hip with wound vac. +2 LE edema) Neurologic: AAOx3, CN II-XII Intact Psychiatric: interacting appropriately, flat affect ICD10 Worksheet Patient Problems: Problems Problem Status Onset Olecranon bursitis of right elbow Acute Postoperative wound infection of left hip Acute Arthritis of left hip Acute chronic disease mgmt/transitional care Acute
[2017-05-15] MEDS ORDERED: LACTULOSE 20 GM/30 ML UDCUP PO PRN (09:16)
[2017-05-15] MEDS ORDERED: MAGNESIUM HYDROXIDE 30 ML UDCUP PO PRN (09:16)
[2017-05-15] MEDS ORDERED: BISACODYL 10 MG SUPP PR PRN (09:16)
[2017-05-15] MEDS ORDERED: ALTEPLASE 2 MG VIAL IVP PRN (10:20)
--- NOTE | 2017-05-15 10:27 | PCMIDPN ---
Assessment/Plan: # Sepsis: Resolved. Source RUE cellulitis/septic bursitis & septic L MELBA. WBC much improved s/p surgery, AF # R Arm Cellulitis and septic bursitis s/p washout. Greatly appreciate surgical team! --continue IV vancomycin, indication : h/o MRSA. --await surgical cultures --check trough this afternoon, Cr normal today 0.7 --hopeful to remove surgical dressing tomorrow # Septic L MELBA, s/p Left hip I&D, femoral stem/head and polyethylene exchange. Hematoma aspirate showed E coli. Gross purulence deep to fascia of left hip was seen in OR. 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 Subjective: reports pain is under control + flatus, no BM no itching Objective: Vital Signs Temp Pulse Resp BP Pulse Ox 36.6 C 84 16 105/58 L 94 05/15/17 07:58 05/15/17 07:58 05/15/17 07:58 05/15/17 07:58 05/15/17 07:58 Microbiology 05/14/17 09:45 Gram Stain - Final Hip - Aspirate 05/13/17 01:30 Gram Stain - Final Hip - Aspirate 05/14/17 22:00 Gram Stain - Final Arm - Tissue 05/14/17 22:00 Gram Stain - Final Arm - Eswab 05/14/17 08:20 Gram Stain - Final Hip - Tissue 05/14/17 08:20 Gram Stain - Final Hip - Tissue 05/14/17 08:20 Gram Stain - Final Hip - Eswab 05/14/17 08:20 Gram Stain - Final Hip - Eswab 05/14/17 22:00 Mycobacterial Smear (CORNEL) - Final Arm - Eswab Mycobacterial Culture - Final 05/14/17 08:20 Mycobacterial Smear (CORNEL) - Final Hip - Eswab Mycobacterial Culture - Final 05/14/17 08:20 Mycobacterial Smear (CORNEL) - Final Hip - Eswab Mycobacterial Culture - Final Laboratory Results 05/15/17 04:24 05/15/17 04:24 05/14/17 05/15/17 05/16/17 05:59 05:59 05:59 Intake Total 1368 Output Total 300 861 Balance -300 507 - Physical Exam General Appearance: alert, no apparent distress EENT: pale conjunctiva, No scleral icterus Respiratory: lungs clear, No accessory muscle use Cardiac/Chest: regular rate, rhythm, No systolic murmur Extremities: swelling (L hip, wound vac in place; no erythema), other (R hand - significantly less swelling and 50% reduction in intensity of erythema; surgical dressing left in place) Peripheral Pulses: 1+: dorsalis-pedis (R), dorsalis-pedis (L) Abdomen: non-tender, soft Skin: pallor, No rash Neuro/Psych: alert, normal mood/affect, oriented x 3 - Time Spent With Patient Time Spent with Patient: greater than 35 minutes Time Spent with Patient: Greater than 35 minutes spent on this patients care, greater than 50% of time spent counseling, educating, and coordinating care regarding the above mentioned plan. ICD10 Worksheet Patient Problems: Problems Problem Status Onset Olecranon bursitis of right elbow Acute Postoperative wound infection of left hip Acute Arthritis of left hip Acute chronic disease mgmt/transitional care Acute
[2017-05-15] MEDS: ACETAMINOPHEN 325 MG TAB PO PRN (13:58)
--- NOTE | 2017-05-15 14:06 | SOAPPROG ---
SOAP Progress Note Assessment/Plan: Assessment: 77-year-old female postoperative day 1 status post left anterior approach total hip I and D with femoral stem and head and liner exchange along with right elbow olecranon bursa I and D Plan: Weight-bearing as tolerated with PT OT Elbow flexion to 90 degrees IV antibiotics per Infectious Disease, will likely need PICC line Medical management per hospitalists. DVT prophylaxis: Lovenox IS 10 times per hour Disposition pending 05/15/17 14:01 Subjective: No acute events overnight. Pain currently a 6/10 but has been better controlled over night. Denies fevers chills nausea vomiting chest pain shortness of breath numbness tingling headaches dizziness Objective: Vital Signs Temp Pulse Resp BP Pulse Ox 36.6 C 89 16 98/56 L 97 05/15/17 11:31 05/15/17 11:31 05/15/17 11:31 05/15/17 11:31 05/15/17 11:31 Microbiology 05/14/17 08:20 Gram Stain - Final Hip - Eswab 05/14/17 08:20 Gram Stain - Final Hip - Tissue 05/14/17 08:20 Gram Stain - Final Hip - Eswab 05/14/17 08:20 Gram Stain - Final Hip - Tissue 05/14/17 22:00 Gram Stain - Final Arm - Tissue 05/14/17 22:00 Gram Stain - Final Arm - Eswab 05/14/17 09:45 Gram Stain - Final Hip - Aspirate 05/13/17 01:30 Gram Stain - Final Hip - Aspirate 05/14/17 22:00 Mycobacterial Smear (CORNEL) - Final Arm - Eswab Mycobacterial Culture - Final 05/14/17 08:20 Mycobacterial Smear (CORNEL) - Final Hip - Eswab Mycobacterial Culture - Final 05/14/17 08:20 Mycobacterial Smear (CORNEL) - Final Hip - Eswab Mycobacterial Culture - Final Laboratory Results 05/15/17 04:24 05/15/17 04:24 05/14/17 05/15/17 05/16/17 05:59 05:59 05:59 Intake Total 1368 Output Total 300 861 150 Balance -300 507 -150 PT 16.6 SEC (12.0-15.0) H 05/13/17 04:49 INR 1.32 (0.83-1.16) H 05/13/17 04:49 Alert and oriented x3 Easy nonlabored breathing on 2 L of O2 Right elbow incision clean dry and intact, erythema and swelling improved, sensation intact to light touch radial ulnar median nerves, motor intact to AIN PIN and interosseous nerves Left lower extremity: Swelling mildly improved No erythema Wound VAC with good suction seal No calf pain Sensation intact to light touch L3-S1 Motor intact to EHL FHL TA and GSC - Time Spent With Patient Time Spent With Patient: 25 - Pending Discharge Pending Discharge Within 24 Hours: No ICD10 Worksheet Patient Problems: Problems Problem Status Onset Olecranon bursitis of right elbow Acute Postoperative wound infection of left hip Acute Arthritis of left hip Acute chronic disease mgmt/transitional care Acute
[2017-05-15] MEDS: FAMOTIDINE 20 MG TAB PO SCH (20:32)
[2017-05-15] MEDS: SENNOSIDES/DOCUSATE SODIUM TAB PO SCH (20:32)
[2017-05-16] MEDS: CEFEPIME HCL 2 GM in D5W 100 ML IV SCH ×2 (00:37→12:18)
[2017-05-16] MEDS: traMADol 50 MG TAB PO SCH ×4 (00:37→17:41)
[2017-05-16] MEDS: oxyCODONE IR 5 MG TAB PO PRN ×2 (04:31→09:22)
--- NOTE | 2017-05-16 04:41 | GOP ---
[f rep st] OPERATIVE REPORT DATE OF OPERATION: 05/14/2017 SURGEON: Arsen Arcos MD TABLE MACHINE OPERATOR: ERICK Valladares. Secondary assist Gilberto Mccall, VIDYAA, LSA. Assistants were requir ed for the procedure due to the complexity of the case, the patient's condition, positioning, preppin g, draping, retraction, and closure. Modifier 22 related to the patient's BMI of 40. Modifier 51 for multiple procedures. ANESTHESIA: General. PREOPERATIVE DIAGNOSIS: Left hip periprosthetic infection, right elbow septic olecranon bursitis. POSTOPERATIVE DIAGNOSIS: Left hip periprosthetic infection, right elbow septic olecranon bursitis. PROCEDURE PERFORMED: Left hip anterior approach, irrigation and debridement with prosthetic femoral stem head and polyethylene liner exchange, right elbow olecranon bursa irrigation and debridement, fl uoroscopic supervision greater than 1 hour. FINDINGS: SPECIMENS: Include deep and superficial culture swabs and tissue cultures from the left hip, as well as tissue and swab cultures from the right elbow. ESTIMATED BLOOD LOSS: 200 cc. DESCRIPTION OF PROCEDURE: Patient was seen in the preoperative holding area. Left lower extremity, right upper extremity were signed, as well as the operative consent. The patient was taken to the op erating room, placed supine on the Steris fracture table. The right upper extremity and left hip wer e prepped and draped in the usual sterile fashion. Operative site was confirmed by signature. Opera tive time-out was performed. Allergies reviewed. TXA was administered. Antibiotics were not admini stered secondary to the patient's continual infusion of antibiotics prior to this procedure. The pre vious left hip incision was re-incised. There was a partially consolidated hematoma as well as cloud y fluid in the space above the TFL fascia. Finger dissection was easily down through the previous uriarte rgical planes. The prosthetic hip was easily palpated suggesting that the communication between the hip and infection was continuous. Hematoma, superficial tissue, and culture swabs were taken. The f emoral component was then exposed in the usual fashion upon impacting the femoral head off the femora l stem also came loose, and was also removed. Next, the polyethylene liner was removed with a quarte r-inch curved osteotome 6 L of sterile normal saline with bacitracin and polymyxin were irrigated thr oughout the wound and hip joints. Sharp debridement of all nonviable tissue was carried out througho ut all layers of soft tissue and surrounding the prostheses. After thorough irrigation and debrideme nt new sterile instruments were reintroduced. All personnel's outer gloves were changed. The new po lyethylene liner was impacted into place. The proximal femur was then again re-exposed. A size 5 br oach was reintroduced confirming stability and no fracture at the proximal femur. A new size 5 femor al stem was impacted into place with a new +32 mm +8 femoral head. The hip was then reduced. Again sterile irrigation with sterile saline was performed, followed by Betadine wash which was allowed to soak for at least 5 minutes. Soft tissues were injected with joint cocktail. A subfascial medium He movac drain was placed. TFL fascia was closed with an 0 barbed monofilament suture. The subcutaneou s tissue was also closed with an 0 barbed monofilament suture as proximally as possible. The proxima l wound had a defect secondary to wound dehiscence. The incisional margins were sharply debrided wit h a knife to allow for improved healing. Skin was closed with 2-0 nylon in vertical mattress fashion . A 2.5 x 2.5 cm defect in the proximal wound was addressed with a wound VAC. We then turned our attention to the right elbow. A curvilinear incision was made posteriorly, and cu rving laterally around the olecranon, sharply down through skin and subcutaneous tissue. The olecran on bursa was excised and thorough irrigation with a pulse lavage was performed with sterile saline mi xed with bacitracin polymyxin. After thorough irrigation and debridement, the skin was then closed w ith 2-0 nylon. Dressing consisted of Xeroform, 4 x 4's, ABD, and Caden wrap. No tourniquet was used. At the end of the case all surgical counts were correct. Fluoroscopy was then performed confirming replacement of left total hip components with adequate reduction and no signs of fracture throughout the femur. The patient was then safely awakened, extubated, and taken to recovery room in stable con dition. All critical parts of the procedure were performed by myself, Dr. Arcos. This operative note was creeduardo polanco by myself, Dr. Arcos. I was immediately available for emergency cross-coverage at all times. DRAINS: Medium Hemovac x1. Wound vacuum x1. COMPLICATIONS: None. INSTRUMENT USED: Implants include an Accolade 2 size 5 stem, 127 degree offset with a 32 mm +8 cobal t chromium head, as well as a new polyethylene liner, size 32 x 50. INDICATIONS FOR PROCEDURE: The patient has left total hip prosthetic joint infection and right olecr anon bursa septic bursitis with systemic symptoms for approximately 2-1/2 days. She continues to hav e septic symptoms despite IV antibiotics. Risks and benefits of proceeding with irrigation debrideme nt of both infection sites were discussed. Patient was wished to proceed. She verbalized understand ing of the risks and benefits of the procedure, signed the informed consent. /[id number]/MODL
--- NOTE | 2017-05-16 05:00 | GCON ---
[f rep st] CONSULTATION ORTHOPEDIC CONSULTATION REASON FOR CONSULTATION: Periprosthetic left total hip infection, as well as right olecranon septic bursitis. HISTORY OF PRESENT ILLNESS: This 77-year-old female underwent anterior approach left total hip arthr oplasty on April 27, [address] Janine Zamarripa. She had been seen in the office May 05 and . There was a small amount of serous fluid from the middle aspect of the incision but the incision w as intact. She did also have swelling at that time without concern for DVT, according to the notes, as the recent ultrasound was negative for DVT. Her Xarelto was held for a short period of time secon florencia to the swelling. She was admitted from the [facility] due to increased swe lling, drainage, and fevers and chills. The patient notes swelling in her left lower extremity has i mproved, but still significant pain is minimal. She is ambulating with a walker without significant difficulty. She is unclear whether the pain in her hip and wound problems or pain and wound problems in her elbow began . Onset of shaking chills was on May 12, when she presented from rehab to the emergency department with a white count of 17,000. She was started empirically on vancomycin at that time. She denies chest pain or shortness of breath, nausea, vomiting, numbness or tingling. PAST MEDICAL HISTORY: Osteoarthritis, as well as above. PAST SURGICAL HISTORY: Includes bilateral total hip arthroplasties, cervical fusion, cholecystectomy , carpal tunnel release. CURRENT MEDICATIONS: Prior to admission include gabapentin 600 mg twice daily, vitamin B, tramadol 5 0 mg q.6 hours, OxyContin 10 mg twice daily, PreserVision daily, fish oil, multivitamin, Lovenox, lewis cium, vitamin D. ALLERGIES: Include codeine with hives. SOCIAL HISTORY: The patient denies tobacco and minimal alcohol use. Denies drug use. REVIEW OF SYSTEMS: Other than HPI, remainder of 10 system review is unremarkable. PHYSICAL EXAMINATION: VITAL SIGNS: Stable. GENERAL: She is alert and oriented x3. HEENT: Sclera e is white. Mucosal membranes are dry. Breathing is nonlabored and easy. MUSCULOSKELETAL AND SKIN: The patient has no pain with log roll of her left hip or motion of her left elbow. She has full mo tion of her left elbow from 0-140 degrees. There is, however, significant warmth, erythema, and a sm all area of fluctuance in the olecranon bursa. She is otherwise neurovascularly intact and compartme nts are soft and compressible. The left hip incision is partially dehisced proximately with an area of granulation and fibrinous tissue, also appears grossly infected and is draining bloody serosanguin eous fluid. There is no significant odor. Very minimal erythema surrounding the incision itself. M oderate to severe swelling in the thigh and calf; however, compartments are soft and compressible wit hout severe pain. She has intact EHL, FHL, tibialis anterior, and gastrocsoleus. LABORATORY DATA: White blood cell count is 16,000, hemoglobin is 6.5, however, she has received a un it of blood, hematocrit 21.2. IMAGING: X-rays from 1 week prior to admission show no signs of fracture or dislocation. MRI reveals postsurgical changes with fluid contiguous with the anterior incision through the muscula ture of the proximal anterior thigh to the level of the hip joint, possibly representing hematoma, se , or abscess. MICROBIOLOGY: Hip swab wound culture with Proteus species from 05/12. Blood cultures from 05/12, wong ve no growth to date. Hip aspirate from 05/13 reveals positive culture for E coli. ASSESSMENT AND PLAN: A 77-year-old female with a periprosthetic left total hip infection, as well as a right olecranon septic bursitis. Recommend surgical incision and drainage of both the left hip an d right elbow, along with prosthetic head and polyethylene liner exchange. The patient has been educ ated on the risks and benefits of these procedures and wishes to proceed. All questions were irineo d. /[id number]/MODL
[2017-05-16] MEDS: VANCOMYCIN HCL/NORMAL SALINE 250 ML IV SCH ×2 (05:15→16:38)
--- NOTE | 2017-05-16 08:25 | HOSPPROG ---
Hospitalist Progress Note Assessment/Plan: #Sepsis: resolved #Right arm cellulitis/septic bursitis: vancomycin/ I&D 05/14. Vanc trough 34--> 11 #Acute infected left hip hematoma (E Coli). High-dose Cefepime and Vanc. Appreciate ID input -I&D with vac 05/14 -PICC in place #Acute pain: well-controlled #Constipation: add bowel regimen #EZEQUIEL: resolved #RAD: she denies history #Deconditioning: PT/OT #Diet: regular #DVT ppx: Lovenox #Disp: cont inpt admission with IV abx. Will need prolonged IV abx at DC. Subjective: no dizziness today. Pain well-controlled Objective: Vital Signs Temp Pulse Resp BP Pulse Ox 36.5 C 85 18 97/45 L 94 05/16/17 07:30 05/16/17 07:30 05/16/17 07:30 05/16/17 07:30 05/16/17 07:30 Microbiology 05/14/17 09:45 Gram Stain - Final Hip - Aspirate 05/13/17 01:30 Gram Stain - Final Hip - Aspirate 05/14/17 22:00 Mycobacterial Smear (CORNEL) - Final Arm - Tissue 05/14/17 08:20 Mycobacterial Smear (CORNEL) - Final Hip - Tissue 05/14/17 08:20 Mycobacterial Smear (CORNEL) - Final Hip - Tissue 05/14/17 08:20 Gram Stain - Final Hip - Eswab 05/14/17 08:20 Mycobacterial Smear (CORNEL) - Final Hip - Eswab Mycobacterial Culture - Final 05/14/17 08:20 Gram Stain - Final Hip - Tissue 05/14/17 08:20 Gram Stain - Final Hip - Eswab 05/14/17 08:20 Mycobacterial Smear (CORNEL) - Final Hip - Eswab Mycobacterial Culture - Final 05/14/17 08:20 Gram Stain - Final Hip - Tissue 05/14/17 22:00 Gram Stain - Final Arm - Tissue 05/14/17 22:00 Gram Stain - Final Arm - Eswab Laboratory Results 05/16/17 04:55 05/16/17 04:55 05/15/17 05/16/17 05/17/17 05:59 05:59 05:59 Intake Total 1368 Output Total 861 1245 Balance 507 -1245 PT 16.6 SEC (12.0-15.0) H 05/13/17 04:49 INR 1.32 (0.83-1.16) H 05/13/17 04:49 - Physical Exam Constitutional: no apparent distress Eyes: PERRL Ears, Nose, Mouth, Throat: moist mucous membranes Cardiovascular: regular rate and rhythym, edema (+2-3 LE edema, L<R) Respiratory: no respiratory distress Gastrointestinal: normoactive bowel sounds Genitourinary: No webb in urethra Skin: warm Musculoskeletal: other (right arm dressed, swollen with erythema. Left hip vac in place, leg swollen, TTP. LUE with PICC ) Neurologic: AAOx3, CN II-XII Intact Psychiatric: interacting appropriately, flat affect ICD10 Worksheet Patient Problems: Problems Problem Status Onset Olecranon bursitis of right elbow Acute Postoperative wound infection of left hip Acute Arthritis of left hip Acute chronic disease mgmt/transitional care Acute
[2017-05-16] MEDS: PRESERVISION AREDS2 FORMULA EYE VIT 1 EACH PO SCH (09:21)
[2017-05-16] MEDS: ASCORBIC ACID 500 MG TAB PO SCH (09:21)
[2017-05-16] MEDS: VITAMIN B COMPLEX 1 EA CAP/TAB PO SCH (09:21)
[2017-05-16] MEDS: CALCIUM CARB W/VIT D 500 MG TAB PO SCH (09:21)
[2017-05-16] MEDS: FAMOTIDINE 20 MG TAB PO SCH ×2 (09:22→20:44)
[2017-05-16] MEDS: ENOXAPARIN 40 MG/0.4 ML SYR SC SCH (09:22)
[2017-05-16] MEDS: GABAPENTIN 300 MG CAP PO SCH ×2 (09:22→20:44)
[2017-05-16] MEDS: POLYETHYLENE GLYCOL 3350 17 GM PKT PO SCH (10:13)
[2017-05-16] MEDS: SENNOSIDES/DOCUSATE SODIUM TAB PO SCH ×2 (10:13→20:43)
[2017-05-16] MEDS: OMEGA-3 FATTY ACIDS 1,000 MG CAP PO SCH (10:14)
[2017-05-16] MEDS: MULTIVITAMINS 1 EACH TAB PO SCH (10:14)
--- NOTE | 2017-05-16 11:27 | PCMIDPN ---
Assessment/Plan: # R Arm Cellulitis and septic bursitis s/p washout. Greatly appreciate surgical team! OR cx NGTD so far --continue IV vancomycin, indication : h/o MRSA 2013. --await more maturity of surgical cx, may be obligated to treat for MRSA since on vancomycin at time of surgery --trough okay, suspect will accumulate w time --tentative duration of antibiotic R olecranon bursitis is 2 weeks # Septic L MELBA, s/p Left hip I&D, femoral stem/head and polyethylene exchange. In the OR there was purulence deep to fascia of left hip was seen in OR. Wound vac remains in place, Cx now show E coli and proteus . WBC continue to trend down --borderline CrCL for cefepime dosing 2gm IV q12 to q8h, keep at q12h for now, likely dc if PsA does not grow from deep cultures. Minimal antibiotic exposure directed at PsA pre-op therefore if not isolated from deep cultures may be able to narrow to ceftriaxone tomorrow. --plan 6 week IV antibiotics, PICC line placed yesterday # Remote h/o MRSA: okay not to isolate at this point since no recent specimens meds vancomycin 1gm IV q12, #4 cefepime 2gm IV q12, #2 Microbiology 05/14 multiple surgical cultures: Tissue, hip: E coli and proteus ; elbow : cx NGTD 05/13/17 01:30 Hip - Aspirate Gram stain neg; cx E coli 05/12/17 15:25 Blood Cx (2) NGTD 05/12/17 14:44 Hip - Swab Wound Culture: Proteus, E coli, PsA Subjective: patient tearful regarding family issues still with deep pain associated with L hip. R arm, less pain. PICC line placed yesterday Objective: Vital Signs Temp Pulse Resp BP Pulse Ox 36.5 C 85 18 97/45 L 94 05/16/17 07:30 05/16/17 07:30 05/16/17 07:30 05/16/17 07:30 05/16/17 07:30 Microbiology 05/14/17 08:20 Gram Stain - Final Hip - Tissue 05/14/17 09:45 Gram Stain - Final Hip - Aspirate 05/13/17 01:30 Gram Stain - Final Hip - Aspirate 05/14/17 22:00 Mycobacterial Smear (CRONEL) - Final Arm - Tissue 05/14/17 08:20 Mycobacterial Smear (CORNEL) - Final Hip - Tissue 05/14/17 08:20 Mycobacterial Smear (CORNEL) - Final Hip - Tissue 05/14/17 08:20 Gram Stain - Final Hip - Eswab 05/14/17 08:20 Mycobacterial Smear (CORNEL) - Final Hip - Eswab Mycobacterial Culture - Final 05/14/17 08:20 Gram Stain - Final Hip - Eswab 05/14/17 08:20 Mycobacterial Smear (CORNEL) - Final Hip - Eswab Mycobacterial Culture - Final 05/14/17 08:20 Gram Stain - Final Hip - Tissue 05/14/17 22:00 Gram Stain - Final Arm - Tissue 05/14/17 22:00 Gram Stain - Final Arm - Eswab Laboratory Results 05/16/17 04:55 05/16/17 04:55 05/15/17 05/16/17 05/17/17 05:59 05:59 05:59 Intake Total 1368 Output Total 861 1245 Balance 507 -1245 - Physical Exam General Appearance: alert EENT: pale conjunctiva, other (MMM), No scleral icterus Respiratory: lungs clear, No accessory muscle use Cardiac/Chest: regular rate, rhythm Extremities: swelling (L hip, wound vac in place, no erythema, drain removed) Abdomen: non-tender, soft Pelvic Exam: No webb Skin: pallor, No rash Neuro/Psych: alert, normal mood/affect, oriented x 3 - Line/s LUE PICC Lines: No drainage, No erythema - Time Spent With Patient Time Spent with Patient: greater than 35 minutes Time Spent with Patient: Greater than 35 minutes spent on this patients care, greater than 50% of time spent counseling, educating, and coordinating care regarding the above mentioned plan. ICD10 Worksheet Patient Problems: Problems Problem Status Onset Olecranon bursitis of right elbow Acute Postoperative wound infection of left hip Acute Arthritis of left hip Acute chronic disease mgmt/transitional care Acute
--- NOTE | 2017-05-16 12:07 | ASMTCMCOM ---
CM Note CM Note Notes: Spoke w/PT and MD, pt does not want to return to [facility]. Pt complex, may be candidate for acute rehab, to put in for Inpt consult, CM to send referrals to Inpt rehab and [facility] per pt's request. DC Plan: Possible Acute Rehab Date Signed: 05/16/2017 12:08 PM Electronically Signed By:Lory Guillaume RN
--- NOTE | 2017-05-16 14:18 | SOAPPROG ---
SOAP Progress Note Assessment/Plan: Assessment: 77-year-old female postoperative day 2 status post left anterior approach total hip I and D with femoral stem and head and liner exchange along with right elbow olecranon bursa I and D Plan: Weight-bearing as tolerated with PT OT Elbow flexion to 90 degrees IV antibiotics per Infectious Disease, PICC line placed, on Cefepime/Vancomycin for E.coli/Proteus in hip; elbow cx's with NGTD. Appreciate recs and input Anemia - may require additional transfusion, rudolph discuss management w/ hospitalists. DVT prophylaxis: Lovenox IS 10 times per hour Disposition pending 05/16/17 14:15 05/16/17 14:17 Subjective: No acute events overnight. Pain well controlled currently. Sitting in a chair eating lunch. Denies fevers chills nausea vomiting chest pain shortness of breath numbness tingling. Objective: Vital Signs Temp Pulse Resp BP Pulse Ox 36.6 C 87 18 101/44 L 96 05/16/17 11:48 05/16/17 11:48 05/16/17 11:48 05/16/17 11:48 05/16/17 11:48 Microbiology 05/14/17 08:20 Gram Stain - Final Hip - Eswab 05/14/17 08:20 Gram Stain - Final Hip - Tissue 05/14/17 08:20 Gram Stain - Final Hip - Tissue 05/14/17 08:20 Gram Stain - Final Hip - Eswab 05/14/17 22:00 Gram Stain - Final Arm - Tissue 05/14/17 22:00 Gram Stain - Final Arm - Eswab 05/14/17 09:45 Gram Stain - Final Hip - Aspirate 05/13/17 01:30 Gram Stain - Final Hip - Aspirate 05/14/17 22:00 Mycobacterial Smear (CORNEL) - Final Arm - Tissue 05/14/17 08:20 Mycobacterial Smear (CORNEL) - Final Hip - Tissue 05/14/17 08:20 Mycobacterial Smear (CORNEL) - Final Hip - Tissue 05/14/17 08:20 Mycobacterial Smear (CORNEL) - Final Hip - Eswab Mycobacterial Culture - Final 05/14/17 08:20 Mycobacterial Smear (CORNEL) - Final Hip - Eswab Mycobacterial Culture - Final Laboratory Results 05/16/17 04:55 05/16/17 04:55 05/15/17 05/16/17 05/17/17 05:59 05:59 05:59 Intake Total 1368 Output Total 861 1245 Balance 507 -1245 PT 16.6 SEC (12.0-15.0) H 05/13/17 04:49 INR 1.32 (0.83-1.16) H 05/13/17 04:49 Alert and oriented x3 Easy nonlabored breathing on 2 L of O2 Right elbow incision clean dry and intact, erythema and swelling improved, sensation intact to light touch radial ulnar median nerves, motor intact to AIN PIN and interosseous nerves Left lower extremity: Swelling mildly improved No erythema Wound VAC with good suction seal Hemovac drain accidentally removed No calf pain Sensation intact to light touch L3-S1 Motor intact to EHL FHL TA and GSC - Time Spent With Patient Time Spent With Patient: 20 ICD10 Worksheet Patient Problems: Problems Problem Status Onset Olecranon bursitis of right elbow Acute Postoperative wound infection of left hip Acute Arthritis of left hip Acute chronic disease [facility]/transitional care Acute
[2017-05-17] MEDS: CEFEPIME HCL 2 GM in D5W 100 ML IV SCH ×2 (00:05→11:26)
[2017-05-17] MEDS: traMADol 50 MG TAB PO SCH ×5 (00:06→23:30)
[2017-05-17] MEDS: VANCOMYCIN HCL/NORMAL SALINE 250 ML IV SCH ×2 (04:24→17:14)
[2017-05-17] MEDS: CALCIUM CARB W/VIT D 500 MG TAB PO SCH (07:51)
[2017-05-17] MEDS: POLYETHYLENE GLYCOL 3350 17 GM PKT PO SCH (07:51)
[2017-05-17] MEDS: GABAPENTIN 300 MG CAP PO SCH ×2 (07:51→20:29)
[2017-05-17] MEDS: ENOXAPARIN 40 MG/0.4 ML SYR SC SCH (07:51)
[2017-05-17] MEDS: SENNOSIDES/DOCUSATE SODIUM TAB PO SCH ×2 (07:52→20:29)
[2017-05-17] MEDS: ASCORBIC ACID 500 MG TAB PO SCH (07:52)
[2017-05-17] MEDS: VITAMIN B COMPLEX 1 EA CAP/TAB PO SCH (07:53)
[2017-05-17] MEDS: MULTIVITAMINS 1 EACH TAB PO SCH (07:53)
[2017-05-17] MEDS: OMEGA-3 FATTY ACIDS 1,000 MG CAP PO SCH (07:53)
[2017-05-17] MEDS: FAMOTIDINE 20 MG TAB PO SCH ×2 (07:53→20:29)
[2017-05-17] MEDS: PRESERVISION AREDS2 FORMULA EYE VIT 1 EACH PO SCH (07:53)
--- NOTE | 2017-05-17 08:36 | HOSPPROG ---
Hospitalist Progress Note Assessment/Plan: #Sepsis: resolved #Acute blood loss anemia: repeat H/H down to 6.7/20. Transfuse blood today. Check iron studies -monitor. Will d/w Dr. Arcos whether concern for hematoma #Right arm cellulitis/septic bursitis: vancomycin, I&D (05/14) #Acute infected left hip hematoma (E Coli). s/p total hip I&D with femoral stem and head linear exchange. Appreciate ID input. PICC in place -plan for Vanc/CTX x 6 weeks (stop 06/25/16) #Acute pain: well-controlled #Constipation: add bowel regimen #EZEQUIEL: resolved #RAD: she denies history #Deconditioning: PT/OT #Diet: regular #DVT ppx: Lovenox #Disp: cont inpt admission with IV abx. Will need prolonged IV abx at DC. Subjective: denies blood in stool. No dizziness, but fatigued Objective: Vital Signs Temp Pulse Resp BP Pulse Ox 36.4 C 78 18 116/57 L 97 05/17/17 08:00 05/17/17 08:00 05/17/17 08:00 05/17/17 08:00 05/17/17 08:00 Microbiology 05/14/17 08:20 Gram Stain - Final Hip - Eswab 05/14/17 08:20 Gram Stain - Final Hip - Tissue 05/14/17 08:20 Gram Stain - Final Hip - Tissue 05/14/17 08:20 Gram Stain - Final Hip - Eswab 05/14/17 22:00 Gram Stain - Final Arm - Tissue 05/14/17 22:00 Gram Stain - Final Arm - Eswab 05/14/17 09:45 Gram Stain - Final Hip - Aspirate 05/13/17 01:30 Gram Stain - Final Hip - Aspirate Laboratory Results 05/17/17 04:25 05/16/17 04:55 05/16/17 05/17/17 05/18/17 05:59 05:59 05:59 Intake Total 1460 Output Total 1245 1900 Balance -1245 -440 PT 16.6 SEC (12.0-15.0) H 05/13/17 04:49 INR 1.32 (0.83-1.16) H 05/13/17 04:49 - Physical Exam Constitutional: other (pale) Eyes: pale conjunctiva Ears, Nose, Mouth, Throat: moist mucous membranes, hearing normal Cardiovascular: regular rate and rhythym, no murmur, rub, or gallop, edema (+2 edema, BL legs) Respiratory: no respiratory distress Gastrointestinal: normoactive bowel sounds Genitourinary: No webb in urethra Musculoskeletal: other (wound vac in place. Right elblow sutured with surrounding erythema. Less swelling in arm. Don't appreciate bruising over TTP over left hip/thigh) Neurologic: AAOx3, CN II-XII Intact Psychiatric: interacting appropriately ICD10 Worksheet Patient Problems: Problems Problem Status Onset Olecranon bursitis of right elbow Acute Postoperative wound infection of left hip Acute Arthritis of left hip Acute chronic disease mgmt/transitional care Acute
[2017-05-17] MEDS: ACETAMINOPHEN 325 MG TAB PO PRN (11:40)
[2017-05-17] MEDS: oxyCODONE IR 5 MG TAB PO PRN (11:40)
--- NOTE | 2017-05-17 11:54 | PCMIDPN ---
Assessment/Plan: # R Arm Cellulitis and septic bursitis s/p washout. Greatly appreciate surgical team! OR cx NGTD so far --continue IV vancomycin, indication : h/o MRSA 2013. --await more maturity of surgical cx, likely obligated to treat for MRSA since on vancomycin at time of surgery and no other organisms isolated. --trough okay, suspect will accumulate w time --duration of antibiotic R olecranon bursitis is 2 weeks, stop date 05/28/17 # Septic L MELBA, s/p Left hip I&D, femoral stem/head and polyethylene exchange. In the OR there was purulence deep to fascia of left hip was seen in OR. Wound vac remains in place, Cx now show E coli and proteus . WBC continue to trend down --dc cefepime, no deep cx indicating PsA --start ceftriaxone 2gm IV daily --plan 6 week IV antibiotics, 06/25/17 # Remote h/o MRSA: okay not to isolate at this point since no recent specimens meds vancomycin 1gm IV q12, #5 cefepime 2gm IV q12, #3 Microbiology 05/14 multiple surgical cultures: Tissue, hip: E coli and proteus ; elbow : cx NGTD 05/13/17 01:30 Hip - Aspirate Gram stain neg; cx E coli 05/12/17 15:25 Blood Cx (2) NGTD 05/12/17 14:44 Hip - Swab Wound Culture: Proteus, E coli, PsA Subjective: urinary frequency no diarrhea no abdominal pain poor sleep due to urinary frequency (likely from auto-diuresis) Objective: Vital Signs Temp Pulse Resp BP Pulse Ox 36.6 C 89 18 131/66 H 95 05/17/17 10:57 05/17/17 10:57 05/17/17 10:57 05/17/17 10:57 05/17/17 10:57 Microbiology 05/14/17 09:45 Gram Stain - Final Hip - Aspirate 05/14/17 08:20 Gram Stain - Final Hip - Eswab 05/14/17 08:20 Gram Stain - Final Hip - Tissue 05/14/17 08:20 Gram Stain - Final Hip - Tissue 05/14/17 08:20 Gram Stain - Final Hip - Eswab 05/14/17 22:00 Gram Stain - Final Arm - Tissue 05/14/17 22:00 Gram Stain - Final Arm - Eswab 05/13/17 01:30 Gram Stain - Final Hip - Aspirate Laboratory Results 05/17/17 04:25 05/16/17 04:55 05/16/17 05/17/17 05/18/17 05:59 05:59 05:59 Intake Total 1460 Output Total 1245 1900 Balance -0595 -440 - Physical Exam General Appearance: alert, no apparent distress EENT: pale conjunctiva, No scleral icterus, No thrush Respiratory: lungs clear, No accessory muscle use Cardiac/Chest: regular rate, rhythm, systolic murmur Extremities: swelling (L hip; wound vac in place), erythema (R arm: significant improvement, incision intact, small amount serosang drainage; edema MUCH improved) Abdomen: non-tender, soft Skin: No rash Neuro/Psych: alert, normal mood/affect, oriented x 3 - Line/s LUE PICC Lines: No drainage, No erythema - Time Spent With Patient Time Spent with Patient: greater than 35 minutes Time Spent with Patient: Greater than 35 minutes spent on this patients care, greater than 50% of time spent counseling, educating, and coordinating care regarding the above mentioned plan. ICD10 Worksheet Patient Problems: Problems Problem Status Onset Olecranon bursitis of right elbow Acute Postoperative wound infection of left hip Acute Arthritis of left hip Acute chronic disease mgmt/transitional care Acute
--- NOTE | 2017-05-17 12:08 | WOCRNPDOC ---
WOCRN Advanced Assessment Note - Skin Integrity Problem, Advanced Assess Left Hip Dressing Type: Black Vac Foam, Wound Vac Dressing Description: Clean/Dry, Intact Closure Description: Sutures, Approximated Exudate Amount: Moderate Exudate Characteristic(s): Serous Integumentary Issue Intervention: Dressing Changed Carlos Wound Tissue: Erythema, Denuded (from contact with black foam) Wound Bed Constitution: Red/Glen - Non Granular Tissue, Subcutaneous Fat Wound Edges: Attached Site Odor: None Site Measurement - Head-to-Toe Length X Width X Depth (cm): 3x3.1x2.8 Skin Integrity Problem Comment: Surgical site with vac present. The wound at the upper thigh/groin has been closed inferiorly with sutures. Vac foam was extended down incision line from wound. Trac pad was over wound opening. Patient was positioned supine in bed. Vac drape and foam were removed. There was also a pressure dressing over a hemovac site in the middle/lateral upper leg that needed to be removed as it was placed over the vac drape. It was not draining. The vac foam had been in contact with intact skin and has denuded some. Decision was made not to replace vac over incision line and to cover it with a dry dressing instead. Vac on groin site was replaced after draping carlos wound. Drape extended proximally to lower abdomen. 1 piece of small simplace black foam was placed into wound bed and then vac suction started at -125 mm Hg continuous. Patient has quite a bit of back pain and lying in the bed was very painful for her despite IV meds and then oral pain medications. She was quite tearful until the dressing was finished and she was able to transfer back to the recliner. Report given to Dr. Arcos. VANESSA Garcia in room for care. Kathrin VEGA also present through some of the dressing change. Next vac change due Wed. Patient will be on a [facility] vac change schedule.
--- NOTE | 2017-05-17 13:34 | PDIAF ---
- Diagnosis Diagnosis: R olecrenon bursitis and L septic TKA Code Status: Full Code - Medication Management Discharge Medications: Medications to Continue on Transfer Gabapentin [Neurontin 300 MG (*)] 600 mg PO BID 11/23/09 [Last Taken 05/12/17 09 :00] Ascorbic Acid [Vitamin C 500 mg (*)] 1,000 mg PO DAILY 03/26/17 [Last Taken ] Aspirin [Aspirin 81mg (*)] 81 mg PO DAILY 03/26/17 [Last Taken 05/12/17] C/E/Zn/Cu/OM3/DHA/EPA/LUT/ZEAX [Preservision Areds 2 Softgel] 1 each PO DAILY [Last Taken 05/12/17] Calcium Carbonate/Vitamin D3 [CALCIUM 600 + VIT D TABLET] 1 each PO DAILY [Last Taken 05/12/17] Herbals/Supplements -Info Only 1 ea PO DAILY 03/26/17 [Last Taken 05/12/17] Multivitamins [Multivitamin (*)] 1 each PO DAILY 03/26/17 [Last Taken 05/12/17] [place]-3 Fatty Acids [Fish Oil 1000 mg (*)] 1,000 mg PO DAILY 03/26/17 [Last Taken 05/12/17] Vitamin B Complex [B Complex] 1 each PO DAILY 03/26/17 [Last Taken 05/12/17] traMADol [Ultram 50 mg (*)] 50 mg PO Q6HRS tab 04/30/17 [Last Taken 05/12/17] Acetaminophen [Tylenol 325mg (*)] 650 mg PO Q6 PRN 05/12/17 [Last Taken Unknown] Sennosides/Docusate Sodium [Senokot-S] 1 - 2 tab PO BID PRN 05/12/17 [Last Taken 05/12/17 08:00] oxyCODONE HCL [Oxycontin] 10 mg PO BID PRN 05/12/17 [Last Taken 05/12/17 08:00] oxyCODONE IR [Oxycodone Ir (*)] 5 - 10 mg PO Q4HRS PRN 05/12/17 [Last Taken 10:00] Freelance Director Antibiotics: vancomycin 1gm IV q12 STOP 05/31/17 ceftriaxone 2gm IV daily STOP 2/2/18 Freelance Director Antibiotic Stop Date: 06/25/17 (TWO different stop dates) Discharge Medications: Refer to the Discharge Home Medication list for PRN reason. PICC Care - Routine: Yes - Orders Isolation Type: None - Labs/Radiology CBC w/diff Date: 05/24/17 (weekly, Wednesday) CMP Date: 05/24/17 (weekly, Wednesday) CRP Date: 05/24/17 (weekly, Wednesday) Call or Fax Lab and Imaging Results to: Hernan Head MD [phone] infectious diseases - Follow Up Care Current Providers and Referrals: Patient,NotPresent [Unknown] - As per Instructions Hernan Head MD [Medical Doctor] - follow up in 2 weeks
[2017-05-18] MEDS: VANCOMYCIN HCL/NORMAL SALINE 250 ML IV SCH (04:26)
[2017-05-18] MEDS: traMADol 50 MG TAB PO SCH ×3 (05:53→18:27)
--- NOTE | 2017-05-18 08:10 | HOSPPROG ---
Hospitalist Progress Note Assessment/Plan: #Sepsis: resolved #Iron deficiency anemia: only transfused 1 unit 05/17; unclear why. Hemovac drain fell out 05/16. Check US for hematoma. FOBT -denies bloody stools, normal colonoscopy within last 3 years -repeat H/H today #Right arm cellulitis/septic bursitis: I&D (05/14). h/o MRSA, but none on culture, so will DC Vancomycin #Acute infected left hip hematoma (E Coli). s/p total hip I&D with femoral stem and head linear exchange. Appreciate ID input. PICC in place -Culture now with Pseudomonas, will change back to Cefepime #Acute pain: well-controlled #Constipation: add bowel regimen #EZEQUIEL: resolved #RAD: she denies history #Deconditioning: PT/OT #Diet: regular #DVT ppx: Lovenox #Disp: cont inpt admission with IV abx. Will need prolonged IV abx at DC. Subjective: Tired, no dizziness Objective: Vital Signs Temp Pulse Resp BP Pulse Ox 36.4 C 76 16 96/61 L 98 05/18/17 07:32 05/18/17 07:32 05/18/17 07:32 05/18/17 07:32 05/18/17 07:32 Microbiology 05/14/17 08:20 Gram Stain - Final Hip - Eswab 05/14/17 08:20 Gram Stain - Final Hip - Tissue 05/14/17 22:00 Gram Stain - Final Arm - Eswab 05/12/17 15:25 Blood Culture - Final Blood 05/12/17 15:10 Blood Culture - Final Blood 05/14/17 22:00 Mycobacterial Smear (CORNEL) - Final Arm - Eswab Mycobacterial Culture - Final 05/14/17 22:00 Gram Stain - Final Arm - Tissue 05/14/17 08:20 Gram Stain - Final Hip - Tissue 05/14/17 08:20 Gram Stain - Final Hip - Eswab 05/14/17 09:45 Gram Stain - Final Hip - Aspirate 05/13/17 01:30 Gram Stain - Final Hip - Aspirate 05/14/17 08:20 Mycobacterial Smear (CORNEL) - Final Hip - Eswab Mycobacterial Culture - Final Laboratory Results 05/18/17 04:30 05/18/17 04:30 05/17/17 05/18/17 05/19/17 05:59 05:59 05:59 Intake Total 1460 1368 Output Total 1900 1100 200 Balance -440 268 -200 PT 16.6 SEC (12.0-15.0) H 05/13/17 04:49 INR 1.32 (0.83-1.16) H 05/13/17 04:49 - Time Spent With Patient Time Spent with Patient: greater than 35 minutes Time Spent with Patient: Greater than 35 minutes spent on this patients care, greater than 50% of time spent counseling, educating, and coordinating care regarding the above mentioned plan. - Physical Exam Constitutional: no apparent distress, obese, other (pale) Eyes: PERRL Ears, Nose, Mouth, Throat: moist mucous membranes Cardiovascular: regular rate and rhythym, edema (+2 LE edema) Respiratory: no respiratory distress Gastrointestinal: normoactive bowel sounds, soft, non-tender abdomen Genitourinary: no bladder fullness Skin: warm Musculoskeletal: full muscle strength, other (wound vac in place. Right elbow with erythema down to wrist, less swelliing ) Neurologic: AAOx3, CN II-XII Intact Psychiatric: interacting appropriately ICD10 Worksheet Patient Problems: Problems Problem Status Onset Olecranon bursitis of right elbow Acute Postoperative wound infection of left hip Acute Arthritis of left hip Acute chronic disease mgmt/transitional care Acute
[2017-05-18] MEDS: MULTIVITAMINS 1 EACH TAB PO SCH (08:41)
[2017-05-18] MEDS: PRESERVISION AREDS2 FORMULA EYE VIT 1 EACH PO SCH (08:41)
[2017-05-18] MEDS: CALCIUM CARB W/VIT D 500 MG TAB PO SCH (08:41)
[2017-05-18] MEDS: VITAMIN B COMPLEX 1 EA CAP/TAB PO SCH (08:41)
[2017-05-18] MEDS: GABAPENTIN 300 MG CAP PO SCH ×2 (08:41→21:17)
[2017-05-18] MEDS: FAMOTIDINE 20 MG TAB PO SCH ×2 (08:41→21:17)
[2017-05-18] MEDS: ASCORBIC ACID 500 MG TAB PO SCH (08:42)
[2017-05-18] MEDS: OMEGA-3 FATTY ACIDS 1,000 MG CAP PO SCH (08:42)
[2017-05-18] MEDS: ENOXAPARIN 40 MG/0.4 ML SYR SC SCH (08:42)
[2017-05-18] MEDS: SENNOSIDES/DOCUSATE SODIUM TAB PO SCH ×2 (08:48→23:00)
[2017-05-18] MEDS: POLYETHYLENE GLYCOL 3350 17 GM PKT PO SCH (08:49)
--- NOTE | 2017-05-18 09:39 | PDIAF ---
- Diagnosis Diagnosis: R olecrenon bursitis and L septic TKA Code Status: Full Code - Medication Management Discharge Medications: Medications to Continue on Transfer Gabapentin [Neurontin 300 MG (*)] 600 mg PO BID 11/23/09 [Last Taken 05/12/17 09 :00] Ascorbic Acid [Vitamin C 500 mg (*)] 1,000 mg PO DAILY 03/26/17 [Last Taken ] Aspirin [Aspirin 81mg (*)] 81 mg PO DAILY 03/26/17 [Last Taken 05/12/17] C/E/Zn/Cu/OM3/DHA/EPA/LUT/ZEAX [Preservision Areds 2 Softgel] 1 each PO DAILY [Last Taken 05/12/17] Calcium Carbonate/Vitamin D3 [CALCIUM 600 + VIT D TABLET] 1 each PO DAILY [Last Taken 05/12/17] Herbals/Supplements -Info Only 1 ea PO DAILY 03/26/17 [Last Taken 05/12/17] Multivitamins [Multivitamin (*)] 1 each PO DAILY 03/26/17 [Last Taken 05/12/17] [place]-3 Fatty Acids [Fish Oil 1000 mg (*)] 1,000 mg PO DAILY 03/26/17 [Last Taken 05/12/17] Vitamin B Complex [B Complex] 1 each PO DAILY 03/26/17 [Last Taken 05/12/17] traMADol [Ultram 50 mg (*)] 50 mg PO Q6HRS tab 04/30/17 [Last Taken 05/12/17] Acetaminophen [Tylenol 325mg (*)] 650 mg PO Q6 PRN 05/12/17 [Last Taken Unknown] Sennosides/Docusate Sodium [Senokot-S] 1 - 2 tab PO BID PRN 05/12/17 [Last Taken 05/12/17 08:00] oxyCODONE HCL [Oxycontin] 10 mg PO BID PRN 05/12/17 [Last Taken 05/12/17 08:00] oxyCODONE IR [Oxycodone Ir (*)] 5 - 10 mg PO Q4HRS PRN 05/12/17 [Last Taken 10:00] Mcfp Antibiotics: Cefepime 2 g IV q 8 hours [employer] Director Antibiotic Stop Date: 06/25/17 (TWO different stop dates) Discharge Medications: Refer to the Discharge Home Medication list for PRN reason. PICC Care - Routine: Yes - Orders Isolation Type: None - Labs/Radiology CBC w/diff Date: 05/24/17 (weekly, Wednesday) CMP Date: 05/24/17 (weekly, Wednesday) CRP Date: 05/24/17 (weekly, Wednesday) Call or Fax Lab and Imaging Results to: Hernan Head MD [phone] infectious diseases - Follow Up Care Current Providers and Referrals: Hernan Head MD [Medical Doctor] - follow up in 2 weeks Patient,NotPresent [Unknown] - As per Instructions
--- NOTE | 2017-05-18 10:05 | PCMIDPN ---
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 Will change ceftriaxone to cefepime with plans for 6 weeks of IV therapy. Will discontinue vancomycin given no isolation of resistant gram-positive juan apblo. * Right olecranon septic bursitis due to group A Streptococcus: Coverage provided by cefepime as outlined above. Continue to follow elbow exam. * Long-term use of antibiotics: Plan weekly CBC, CMP and CRP on therapy. Will check baseline liver function test today. 05/18/17 10:02 Subjective: Patient with left hip and right elbow pain. Loose stool but no diarrhea. Objective: Vital Signs Temp Pulse Resp BP Pulse Ox 36.4 C 76 16 96/61 L 98 05/18/17 07:32 05/18/17 07:32 05/18/17 07:32 05/18/17 07:32 05/18/17 07:32 Microbiology 05/14/17 08:20 Gram Stain - Final Hip - Eswab 05/14/17 08:20 Gram Stain - Final Hip - Tissue 05/14/17 22:00 Gram Stain - Final Arm - Eswab 05/12/17 15:25 Blood Culture - Final Blood 05/12/17 15:10 Blood Culture - Final Blood 05/14/17 22:00 Mycobacterial Smear (CORNEL) - Final Arm - Eswab Mycobacterial Culture - Final 05/14/17 22:00 Gram Stain - Final Arm - Tissue 05/14/17 08:20 Gram Stain - Final Hip - Tissue 05/14/17 08:20 Gram Stain - Final Hip - Eswab 05/14/17 09:45 Gram Stain - Final Hip - Aspirate 05/13/17 01:30 Gram Stain - Final Hip - Aspirate 05/14/17 08:20 Mycobacterial Smear (CORNEL) - Final Hip - Eswab Mycobacterial Culture - Final Laboratory Results 05/18/17 04:30 05/18/17 04:30 05/17/17 05/18/17 05/19/17 05:59 05:59 05:59 Intake Total 1460 1368 Output Total 1900 1100 400 Balance -440 268 -400 Vancomycin # 6 Ceftriaxone # 1 (status post 3 days of cefepime) Operative hip cultures with growth of E coli, Proteus, and Pseudomonas Right elbow cultures with growth of GAS - Physical Exam General Appearance: alert, no apparent distress EENT: No scleral icterus, No thrush Respiratory: lungs clear, No respiratory distress Cardiac/Chest: regular rate, rhythm Extremities: inflammation (Left hip incision intact with wound VAC in place along lower abdominal wall; postoperative carlos-incisional erythema present; right elbow with residual olecranon fluid and erythema which extends over forearm) Abdomen: non-tender, No distended - Line/s LUE PICC Lines: No drainage, No erythema ICD10 Worksheet Patient Problems: Problems Problem Status Onset Olecranon bursitis of right elbow Acute Postoperative wound infection of left hip Acute Arthritis of left hip Acute chronic disease mgmt/transitional care Acute
--- NOTE | 2017-05-18 10:07 | PDIAF ---
- Diagnosis Diagnosis: R olecrenon bursitis and L septic TKA Code Status: Full Code - Medication Management Discharge Medications: Medications to Continue on Transfer Gabapentin [Neurontin 300 MG (*)] 600 mg PO BID 11/23/09 [Last Taken 05/12/17 09 :00] Ascorbic Acid [Vitamin C 500 mg (*)] 1,000 mg PO DAILY 03/26/17 [Last Taken ] Aspirin [Aspirin 81mg (*)] 81 mg PO DAILY 03/26/17 [Last Taken 05/12/17] C/E/Zn/Cu/OM3/DHA/EPA/LUT/ZEAX [Preservision Areds 2 Softgel] 1 each PO DAILY [Last Taken 05/12/17] Calcium Carbonate/Vitamin D3 [CALCIUM 600 + VIT D TABLET] 1 each PO DAILY [Last Taken 05/12/17] Herbals/Supplements -Info Only 1 ea PO DAILY 03/26/17 [Last Taken 05/12/17] Multivitamins [Multivitamin (*)] 1 each PO DAILY 03/26/17 [Last Taken 05/12/17] [place]-3 Fatty Acids [Fish Oil 1000 mg (*)] 1,000 mg PO DAILY 03/26/17 [Last Taken 05/12/17] Vitamin B Complex [B Complex] 1 each PO DAILY 03/26/17 [Last Taken 05/12/17] traMADol [Ultram 50 mg (*)] 50 mg PO Q6HRS tab 04/30/17 [Last Taken 05/12/17] Acetaminophen [Tylenol 325mg (*)] 650 mg PO Q6 PRN 05/12/17 [Last Taken Unknown] Sennosides/Docusate Sodium [Senokot-S] 1 - 2 tab PO BID PRN 05/12/17 [Last Taken 05/12/17 08:00] oxyCODONE HCL [Oxycontin] 10 mg PO BID PRN 05/12/17 [Last Taken 05/12/17 08:00] oxyCODONE IR [Oxycodone Ir (*)] 5 - 10 mg PO Q4HRS PRN 05/12/17 [Last Taken 10:00] [facility] Antibiotics: Cefepime 2 g IV q 8 hours Punch Press Operator Antibiotic Stop Date: 06/25/17 (TWO different stop dates) Discharge Medications: Refer to the Discharge Home Medication list for PRN reason. PICC Care - Routine: Yes - Orders Isolation Type: None - Labs/Radiology CBC w/diff Date: 05/24/17 (weekly, Wednesday) CMP Date: 05/24/17 (weekly, Wednesday) CRP Date: 05/24/17 (weekly, Wednesday) Call or Fax Lab and Imaging Results to: Hernan Head MD [phone] infectious diseases - Follow Up Care Current Providers and Referrals: Patient,NotPresent [Unknown] - As per Instructions Hernan Head MD [Medical Doctor] - 06/01/17 11:00 am
[2017-05-18] MEDS: CEFEPIME HCL 2 GM in D5W 100 ML IV SCH ×2 (12:59→21:17)
--- NOTE | 2017-05-18 14:56 | ASMTCMCOM ---
CM Note CM Note Notes: Patient accepted to [facility] acute inpatient rehab today. Per Sugey Schmidt, best admit time is tomorrow 05/19 after lunch. She spoke with marshmallow machine worker Wanda who will do wound vac change here in AM. I spoke with patient, and she agrees with this plan. Will likely need wheelchair van for transport and is ok with paying for this. I also called Ese @ [facility] to let her know that patient is going to [place]. Current CM Discharge plan: [facility] Acute Inpatient Rehab 05/19 Date Signed: 05/18/2017 02:56 PM Electronically Signed By:Robyn Alvarez RN
--- NOTE | 2017-05-18 18:57 | SOAPPROG ---
SOAP Progress Note Assessment/Plan: Assessment: Plan: 05/18/17 18:56 states she's tired but comfortable r hip with dressing inplace and foot NVI R elbow with min drainage and erythema plan for transfer to rehab tomorrow Objective: Vital Signs Temp Pulse Resp BP Pulse Ox 36.5 C 93 16 140/50 H 92 05/18/17 14:55 05/18/17 14:55 05/18/17 18:28 05/18/17 14:55 05/18/17 18:28 Microbiology 05/14/17 08:20 Gram Stain - Final Hip - Tissue 05/14/17 08:20 Gram Stain - Final Hip - Eswab 05/14/17 22:00 Mycobacterial Smear (CORNEL) - Final Arm - Tissue 05/14/17 08:20 Mycobacterial Smear (CORNEL) - Final Hip - Tissue 05/14/17 08:20 Mycobacterial Smear (CORNEL) - Final Hip - Tissue 05/14/17 22:00 Gram Stain - Final Arm - Tissue 05/13/17 01:30 Gram Stain - Final Hip - Aspirate 05/14/17 22:00 Gram Stain - Final Arm - Eswab 05/14/17 08:20 Gram Stain - Final Hip - Tissue 05/14/17 08:20 Gram Stain - Final Hip - Eswab 05/14/17 09:45 Gram Stain - Final Hip - Aspirate 05/12/17 15:25 Blood Culture - Final Blood 05/12/17 15:10 Blood Culture - Final Blood 05/14/17 22:00 Mycobacterial Smear (CORNEL) - Final Arm - Eswab Mycobacterial Culture - Final 05/14/17 08:20 Mycobacterial Smear (CORNEL) - Final Hip - Eswab Mycobacterial Culture - Final Laboratory Results 05/18/17 14:10 05/18/17 04:30 05/17/17 05/18/17 05/19/17 05:59 05:59 05:59 Intake Total 1460 1368 300 Output Total 1900 1100 1240 Balance -440 268 -940 PT 16.6 SEC (12.0-15.0) H 05/13/17 04:49 INR 1.32 (0.83-1.16) H 05/13/17 04:49 ICD10 Worksheet Patient Problems: Problems Problem Status Onset Olecranon bursitis of right elbow Acute Postoperative wound infection of left hip Acute Arthritis of left hip Acute chronic disease mgmt/transitional care Acute
[2017-05-19] MEDS: traMADol 50 MG TAB PO SCH ×3 (00:25→13:17)
[2017-05-19 04:39] VITALS: PULSE 78; O2SAT 97
[2017-05-19] MEDS: CEFEPIME HCL 2 GM in D5W 100 ML IV SCH ×2 (05:21→13:17)
[2017-05-19 07:22] VITALS: BP 120/66; RESP 14; TEMP 97.7
[2017-05-19] MEDS: ENOXAPARIN 40 MG/0.4 ML SYR SC SCH (08:37)
[2017-05-19] MEDS: OMEGA-3 FATTY ACIDS 1,000 MG CAP PO SCH (08:37)
[2017-05-19] MEDS: MULTIVITAMINS 1 EACH TAB PO SCH (08:38)
[2017-05-19] MEDS: ASCORBIC ACID 500 MG TAB PO SCH (08:38)
[2017-05-19] MEDS: SENNOSIDES/DOCUSATE SODIUM TAB PO SCH (08:38)
[2017-05-19] MEDS: PRESERVISION AREDS2 FORMULA EYE VIT 1 EACH PO SCH (08:38)
[2017-05-19] MEDS: GABAPENTIN 300 MG CAP PO SCH (08:38)
[2017-05-19] MEDS: FAMOTIDINE 20 MG TAB PO SCH (08:38)
[2017-05-19] MEDS: VITAMIN B COMPLEX 1 EA CAP/TAB PO SCH (08:38)
[2017-05-19] MEDS: CALCIUM CARB W/VIT D 500 MG TAB PO SCH (08:38)
[2017-05-19] MEDS: POLYETHYLENE GLYCOL 3350 17 GM PKT PO SCH (08:39)
--- NOTE | 2017-05-19 10:02 | WOCRNPDOC ---
WOCRN Advanced Assessment Note - Skin Integrity Problem, Advanced Assess Left Hip Dressing Type: Black Vac Foam (x2), Wound Vac Closure Description: Sutures Exudate Amount: Moderate Exudate Characteristic(s): Serosanguinous Integumentary Issue Intervention: Dressing Changed Marylu Wound Tissue: Erythema Wound Bed Color: Red Wound Bed Constitution: Red/Pacifica - Non Granular Tissue Wound Edges: Attached Site Odor: None Skin Integrity Problem Comment: Vac removed and wound flushed with ns. Marylu wound denudement healing but still slightly open. Marylu wound skin draped and then applied skin prep. One piece of black foam applied to wound bed and then a second landing pad added. Bridge dressing used and tubing was positioned inferiorly. It was taped over an Allevyn which was used to cover incision line. Vac restarted at -125 mm Hg DPC with a 5 min rise and 2 min fall with no leaks. Venecia VEGA in room for care. Next vac change Wednesday.
--- NOTE | 2017-05-19 13:01 | PDIAF ---
- Diagnosis Diagnosis: R olecrenon bursitis and L septic TKA Code Status: Full Code - Medication Management Discharge Medications: Medications to Continue on Transfer Gabapentin [Neurontin 300 MG (*)] 600 mg PO BID 11/23/09 [Last Taken 05/12/17 09 :00] Ascorbic Acid [Vitamin C 500 mg (*)] 1,000 mg PO DAILY 03/26/17 [Last Taken ] C/E/Zn/Cu/OM3/DHA/EPA/LUT/ZEAX [Preservision Areds 2 Softgel] 1 each PO DAILY [Last Taken 05/12/17] Calcium Carbonate/Vitamin D3 [CALCIUM 600 + VIT D TABLET] 1 each PO DAILY [Last Taken 05/12/17] Multivitamins [Multivitamin (*)] 1 each PO DAILY 03/26/17 [Last Taken 05/12/17] [place]-3 Fatty Acids [Fish Oil 1000 mg (*)] 1,000 mg PO DAILY 03/26/17 [Last Taken 05/12/17] Vitamin B Complex [B Complex] 1 each PO DAILY 03/26/17 [Last Taken 05/12/17] traMADol [Ultram 50 mg (*)] 50 mg PO Q6HRS tab 04/30/17 [Last Taken 05/12/17] Acetaminophen [Tylenol 325mg (*)] 650 mg PO Q4HRS PRN tab 05/19/17 [Last Taken Unknown] Alteplase [Cathflo Activase 2 mg (*)] 2 mg IVP PRN PRN vial 05/19/17 [Last Taken Unknown] Cefepime HCl [Maxipime] 2 gm IV Q8HRS vial 05/19/17 [Last Taken Unknown] Enoxaparin [Lovenox 40 MG (*)] 40 mg SC DAILY syr 05/19/17 [Last Taken Unknown] Famotidine [Pepcid 20 MG (*)] 20 mg PO BID tab 05/19/17 [Last Taken Unknown] Ferrous Sulfate 325 mg PO BID #60 tablet 05/19/17 [Last Taken Unknown] Polyethylene Glycol 3350 [Miralax 17 gm (*)] 17 gm PO DAILY pkt 05/19/17 [Last Taken Unknown] Sennosides/Docusate Sodium [Senokot-S] 1 - 2 tab PO BID tab 05/19/17 [Last Taken Unknown] Sennosides/Docusate Sodium [Senokot-S] 1 - 2 tab PO BID PRN tab 05/19/17 [Last Taken Unknown] Temazepam [Restoril 15 MG (*)] 15 mg PO HS PRN cap 05/19/17 [Last Taken Unknown ] oxyCODONE CR [Oxycontin] 10 mg PO BID tab 05/19/17 [Last Taken Unknown] oxyCODONE IR [Oxycodone Ir (*)] 5 - 10 mg PO Q3HRS PRN tab 05/19/17 [Last Taken Unknown] Sea Foam Kiss Maker Antibiotics: Cefepime 2 g IV q 8 hours Assisted Antibiotic Stop Date: 06/25/17 (TWO different stop dates) Discharge Medications: Refer to the Discharge Home Medication list for PRN reason. PICC Care - Routine: Yes - Orders Services needed: Registered Nurse, Certified Metal Pourer, Master Roustabout Crew Leader , Physical Therapy, Occupational Therapy Isolation Type: None Diet Recommendation: no restrictions on diet Diet Texture: Regular Texture Diet - Labs/Radiology CBC w/diff Date: 05/24/17 (weekly, Wednesday) CMP Date: 05/24/17 (weekly, Wednesday) CRP Date: 05/24/17 (weekly, Wednesday) Other Lab Name, Date and Time: Hemoglobin/Hematocrit 05/20/17. Last transfusion 05/17/17 Call or Fax Lab and Imaging Results to: Hernan Head MD [phone] infectious diseases - Follow Up Care Current Providers and Referrals: Hernan Head MD [Medical Doctor] - 06/01/17 11:00 am Patient,NotPresent [Unknown] - As per Instructions Janine Zamarripa MD [Medical Doctor] - follow up in 1 week
--- NOTE | 2017-05-19 13:12 | HOSPPROG ---
Hospitalist Progress Note Assessment/Plan: #Sepsis: resolved #Anemia:chronic disease and likely iron deficiency. PO iron. May benefit from IV iron in future. US thigh negative for acute hematoma. FOBT negative -denies bloody stools, normal colonoscopy within last 3 years #Right arm cellulitis/septic bursitis: I&D (05/14). h/o MRSA, but none on culture, so will DC Vancomycin #Acute infected left hip hematoma (E Coli). s/p total hip I&D with femoral stem and head linear exchange. Appreciate ID input. PICC in place -Culture now with Pseudomonas, will change back to Cefepime #Acute pain: well-controlled #Constipation: add bowel regimen #EZEQUIEL: resolved #RAD: she denies history #Deconditioning: PT/OT #Diet: regular #DVT ppx: Lovenox #Disp: DC today to inpatient rehab Subjective: no dizziness or lightheadedness Objective: Vital Signs Temp Pulse Resp BP Pulse Ox 36.5 C 78 14 120/66 97 05/19/17 07:21 05/19/17 07:21 05/19/17 07:21 05/19/17 07:21 05/19/17 07:21 Microbiology 05/14/17 08:20 Gram Stain - Final Hip - Tissue 05/14/17 08:20 Gram Stain - Final Hip - Eswab 05/14/17 08:20 Gram Stain - Final Hip - Eswab 05/14/17 09:45 Gram Stain - Final Hip - Aspirate 05/13/17 01:30 Gram Stain - Final Hip - Aspirate 05/14/17 22:00 Mycobacterial Smear (CORNEL) - Final Arm - Tissue 05/14/17 08:20 Mycobacterial Smear (CORNEL) - Final Hip - Tissue 05/14/17 08:20 Mycobacterial Smear (CORNEL) - Final Hip - Tissue 05/14/17 22:00 Gram Stain - Final Arm - Tissue 05/14/17 22:00 Gram Stain - Final Arm - Eswab 05/14/17 08:20 Gram Stain - Final Hip - Tissue Laboratory Results 05/19/17 05:00 05/19/17 05:00 05/18/17 05/19/17 05/20/17 05:59 05:59 05:59 Intake Total 1368 800 Output Total 1100 3240 Balance 268 -2440 PT 16.6 SEC (12.0-15.0) H 05/13/17 04:49 INR 1.32 (0.83-1.16) H 05/13/17 04:49 - Time Spent With Patient Time Spent with Patient: greater than 35 minutes Time Spent with Patient: Greater than 35 minutes spent on this patients care, greater than 50% of time spent counseling, educating, and coordinating care regarding the above mentioned plan. - Physical Exam Constitutional: no apparent distress Eyes: PERRL Ears, Nose, Mouth, Throat: moist mucous membranes Cardiovascular: regular rate and rhythym, edema (+2 edema LEs) Respiratory: no respiratory distress, No no rales or rhonchi, No expiratory wheeze, No inspiratory crackles Gastrointestinal: normoactive bowel sounds Genitourinary: No wbeb in urethra Skin: warm Musculoskeletal: other (wound vac in place.) Neurologic: AAOx3, CN II-XII Intact Psychiatric: flat affect ICD10 Worksheet Patient Problems: Problems Problem Status Onset Olecranon bursitis of right elbow Acute Postoperative wound infection of left hip Acute Arthritis of left hip Acute chronic disease mgmt/transitional care Acute
--- NOTE | 2017-05-19 13:38 | GDS ---
[f rep st] DISCHARGE SUMMARY DISCHARGE DIAGNOSES: 1. Sepsis. 2. Right olecranon septic bursitis/right arm cellulitis, status post I&D 2016. 3. h/o MRSA 4. Acutely infected left hip hematoma (Escherichia coli/Pseudomonas), status post total hip I&D with femoral stem and head liner exchange. 5. Acute pain. 6. Constipation. 7. Acute kidney injury. 8. Questionable reactive airway disease; she denies. 9. Deconditioning:. 10. Anemia, likely iron deficiency and chronic disease. PROCEDURES: 04/24/2017: Left hip I and D, femoral stem/head and polyethylene exchange, and right elbow I and D by Dr. Arcos. HISTORY OF PRESENT ILLNESS: The patient is a 77-year-old female, who was postop day 15 from left MELBA and who had been having a fair amount of pain. She actually visited the ER postop day 7 with increased pain, and an ultrasound was done that showed no DVT, and the hip x-ray showed stable bilateral hip replacements. She reported some fevers and chills. She also notes new pain in the right elbow and hip with some sanguinous drainage. HOSPITAL COURSE BY PROBLEM: 1. Sepsis: Elevated white count and lactate with infected left hip and right olecranon bursa. She was initially treated with broad antibiotics, which has now been narrowed to cefepime. 2. Leukocytosis: Again secondary to acute infection. This has since resolved while being on antibiotics. 3. Right arm cellulitis/olecranon septic bursitis: Status post I&D 2016. Has a history of MRSA, so was broadly covered with vancomycin; however, this was discontinued since nothing grew on culture. 4. Acute infected left hip hematoma: Positive culture for E coli and Pseudomonas. Status post total hip I and D with femoral stem and head liner exchange. She will be treated with high-dose cefepime per ID. We will check weekly labs. Wound VAC was changed today. 5. Acute pain: Well controlled on OxyContin and oxycodone. Continue bowel regimen. 6. EZEQUIEL: Resolved. 7. Questionable reactive airway disease: She denies history. No evidence of exacerbation here. 8. Deconditioning: Continue PT/OT. Will transfer to inpatient rehab. 9. Anemia: Suspect this is multifactorial. Concern for leg hematoma since evac drain fell out. U/S leg didn't show large fluid collection. Negative FOBT and normal colonoscopy in past 3 years. Iron studies showed a mixed picture with anemia of chronic disease and iron deficiency. This may be difficult to discern, as she had already received blood products. Will treat with oral iron. These studies should be repeated in the next few weeks. Repeat H/H on . Received a total of 3 units RBCs, last being 05/17/2017. DISPOSITION: Patient is stable for discharge to inpatient rehab. NEW MEDICATIONS: See medication reconciliation. FOLLOWUP: 1. Orthopedics. 2. Wound care per instructions. 3. Weekly labs for antibiotics per ID recommendations. 4. H/ H on 05/20/2017. Will need to monitor closely given intermittent anemia. May need to hold Lovenox. Total time spent on discharge 45 minutes, reviewing labs, discussing followup with patient, and coordinating discharge. /[id number]/MODL MTDD
--- NOTE | 2017-05-19 16:14 | PCMIDPN ---
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 Plan 6 weeks of cefepime with need for chronic suppressive therapy thereafter based on retained hardware. * Right olecranon septic bursitis due to group A Streptococcus: Residual inflammatory changes and cellulitis present. Will need to monitor this clinically over time to ensure does not require repeat incision and drainage. Covered by cefepime as outlined above. P. acnes also isolated from cultures although not clear this represents a significant pathogen in this setting. * Long-term use of antibiotics: Plan weekly CBC, CMP and CRP on therapy. Will continue to follow patient after discharge to [facility]. 05/19/17 16:11 05/19/17 16:13 Subjective: Patient status post wound VAC change. Residual hip and elbow pain present. Objective: Vital Signs Temp Pulse Resp BP Pulse Ox 36.5 C 78 14 120/66 97 05/19/17 07:21 05/19/17 07:21 05/19/17 07:21 05/19/17 07:21 05/19/17 07:21 Microbiology 05/14/17 22:00 Mycobacterial Smear (CORNEL) - Final Arm - Tissue 05/14/17 22:00 Gram Stain - Final Arm - Tissue 05/14/17 22:00 Gram Stain - Final Arm - Eswab 05/14/17 08:20 Gram Stain - Final Hip - Tissue 05/14/17 08:20 Gram Stain - Final Hip - Tissue 05/14/17 08:20 Gram Stain - Final Hip - Eswab 05/14/17 08:20 Gram Stain - Final Hip - Eswab 05/14/17 09:45 Gram Stain - Final Hip - Aspirate 05/13/17 01:30 Gram Stain - Final Hip - Aspirate 05/14/17 08:20 Mycobacterial Smear (CORNEL) - Final Hip - Tissue 05/14/17 08:20 Mycobacterial Smear (CORNEL) - Final Hip - Tissue Laboratory Results 05/19/17 05:00 05/19/17 05:00 05/18/17 05/19/17 05/20/17 05:59 05:59 05:59 Intake Total 1368 800 Output Total 1100 3240 60 Balance 565 -7990 -60 Cefepime # 2 Right elbow with growth of GAS; 2nd culture with growth of P. acnes - Physical Exam General Appearance: alert, no apparent distress EENT: No scleral icterus, No thrush Cardiac/Chest: regular rate, rhythm Extremities: inflammation (Left hip with wound VAC in place without surrounding erythema; right elbow with residual fluid present underneath incision which is intact; cellulitic changes over posterior forearm with some residual edema; decreases significantly with elevation) Abdomen: non-tender, No distended ICD10 Worksheet Patient Problems: Problems Problem Status Onset Arthritis of left hip Acute Olecranon bursitis of right elbow Acute Postoperative wound infection of left hip Acute chronic disease mgmt/transitional care Acute
== END 2017-05-19 14:10 | DRG 466 ==
LOC: EDUNIT# → F3E 16:46
PROVIDERS: ADMIT Internal Medicine; ATTEND Internal Medicine
DX: T84.52XA Infection and inflammatory reaction due to internal left hip prosthesis, initial encounter (principal); B96.20 Unspecified Escherichia coli [E. coli] as the cause of diseases classified elsewhere; B96.4 Proteus (mirabilis) (morganii) as the cause of diseases classified elsewhere; B96.5 Pseudomonas (aeruginosa) (mallei) (pseudomallei) as the cause of diseases classified elsewhere; A41.9 Sepsis, unspecified organism; M70.21 Olecranon bursitis, right elbow; B95.0 Streptococcus, group A, as the cause of diseases classified elsewhere; T81.31XA Disruption of external operation (surgical) wound, not elsewhere classified, initial encounter; L03.113 Cellulitis of right upper limb; L76.32 Postprocedural hematoma of skin and subcutaneous tissue following other procedure; K59.00 Constipation, unspecified; N17.9 Acute kidney failure, unspecified; J45.909 Unspecified asthma, uncomplicated; D50.9 Iron deficiency anemia, unspecified; D63.8 Anemia in other chronic diseases classified elsewhere; Z86.14 Personal history of Methicillin resistant Staphylococcus aureus infection; Z68.41 Body mass index [BMI] 40.0-44.9, adult; E66.01 Morbid (severe) obesity due to excess calories
CPT/HCPCS: 96374; 97116-GP; 97161-GP; 97166-GO; 97530-GO; 97530-GP; 97535-GO; C1751; G8978-GP-CJ; G8979-GP-CI; G8987-GO-CK; G8988-GO-CI; J0171; J0690; J0692; J0696; J1100; J1170; J1650; J1885; J2405; J2704; J2780; J2795; J2997; J3010; J3370; P9016; Q9967

== ENCOUNTER 2017-05-19 10:33 | Inpatient (IN) | payer OTHER ==
[2017-05-19] MEDS ORDERED: TEMAZEPAM 15 MG CAP PO PRN (16:03)
[2017-05-19] MEDS ORDERED: ALTEPLASE 2 MG VIAL IVP PRN (16:03)
[2017-05-19] MEDS ORDERED: oxyCODONE IR 5 MG TAB PO PRN (16:03)
[2017-05-19] MEDS ORDERED: ACETAMINOPHEN 325 MG TAB PO PRN (16:03)
--- NOTE | 2017-05-19 16:25 | PDOREHIP ---
Admission [facility] - Admission - 3 Day Assessment Period Admission Date/Day 1: 05/19/17 Day 2: 05/20/17 Day 3: 05/21/17 - Active Diagnoses Comorbidities and Co-existing Conditions at Admission: 63603. None of the Above - Skin Conditions Unhealed Pressure Ulcer (1 or more/Stage 1 or >)-Admission: 0. No
--- NOTE | 2017-05-19 17:44 | GHP ---
[f rep st] HISTORY AND PHYSICAL POST ADMISSION PHYSICIAN EVALUATION AND REHABILITATION TREATMENT PLAN. DATE OF ADMISSION: 05/19/2017 DATE OF EVALUATION: 05/19/2017. TIME OF EVALUATION: 1535. REFERRING FACILITY: [facility]. IMPAIRMENT GROUP: [id number]. DATE OF ONSET: 05/12/2017 REFERRING PHYSICIAN: Dr. Deleon. ADDITIONAL CONSULTING PHYSICIAN: Orthopedic surgery, Dr. Arcos. 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 ETIOLOGIC DIAGNOSIS: Medical/surgical complications. DATE OF SURGERY: Initial date of surgery was 04/27/2017 and she subsequently had surgery on 05/15/2017. HISTORY OF PRESENT ILLNESS: This patient had a left total hip arthroplasty on 04/27/2017. She was discharged to a shelter facility for rehabilitation. During her stay, she had increased pain and was seen in the [facility] on 05/04/2017 where a deep venous thrombosis was ruled out. She subsequently returned to the hospital on 2016 with redness, discharge, and swelling of the surgical site and also on her right elbow. She was diagnosed with olecranon bursitis as well as a cellulitis of the left hip. Subsequent evaluation revealed wound infection, which was communicating into the joint where the hardware was. On evaluation in the emergency department, she also met sepsis criteria with tachycardia and an elevated lactate. She underwent surgery on 05/15/2017 with replacement of her hip hardware and I and D of infected tissue and she also had I and D of the right elbow olecranon bursa. Cultures eventually were polymicrobial from the left hip including Escherichia coli and Pseudomonas. She was initially on broad-spectrum antibiotics including vancomycin for history of MRSA, but subsequently her antibiotics were narrowed to just cefepime. Hospital course was complicated by acute kidney injury that resolved and by anemia that was considered to be multifactorial with iron deficiency and chronic disease. She had a blood transfusion. A wound VAC was placed in the left hip wound. STUDIES AND LABS: CBC the day of discharge revealed slight worsening of her anemia with a hemoglobin of 7.7 and hematocrit 24.5. The previous day, it had been 8 and 24.8. Her elevated white blood cell count had resolved. Platelet count was normal. Serum chemistry on the day of discharge revealed normal renal function and electrolytes. The day prior to discharge, she had elevated ALT, AST, and alkaline phosphatase at 139, 100, and 404, and she had a low albumin at 2.1. On 05/17/2017, iron saturation was 9, total iron was 20, and TIBC was 224. Ferritin was normal on the day of discharge at 177. She had a negative Hemoccult x1. Chest x-ray was consistent with possible airways disease and likely atelectasis on 05/12/2017. She had an ultrasound of the left lower extremity which showed a complex hematoma of the left upper thigh to the hip region. The same thing was seen on a prior MRI. PRECAUTIONS: She is a fall risk. She has orthopedic anterior hip precautions. ACTIVE COMORBIDITIES: She has the tier 3 comorbidity of morbid obesity. She otherwise currently has no active tier 1, tier 2, or tier 3 comorbidities. PAST MEDICAL HISTORY: Degenerative joint disease. PAST SURGICAL HISTORY: She has had bilateral hip arthroplasties, a cervical fusion, a cholecystectomy, and surgery for carpal tunnel syndrome. PREHOSPITAL MEDICATIONS: 1. Gabapentin 600 mg p.o. twice daily. 2. Ascorbic acid 1000 mg p.o. daily. 3. Aspirin 81 mg p.o. daily. 4. PreserVision vitamins 1 p.o. daily. 5. Calcium/vitamin D 600 mg 1 p.o. daily. 6. Multivitamin 1 p.o. daily. 7. Oakman-3 fatty acids 1000 mg p.o. daily. 8. Vitamin B complex 1 p.o. daily. 9. Tramadol 50 mg p.o. q.6 hours p.r.n. 10. Acetaminophen 650 mg p.o. q.6 hours p.r.n. 11. Senna/docusate 1-2 tablets p.o. twice daily p.r.n. 12. Oxycodone continuous release 10 mg p.o. twice daily p.r.n. 13. Oxycodone immediate release 5-10 mg p.o. q.4 hours p.r.n. ADMISSION MEDICATIONS: 1. Acetaminophen 650 mg p.o. q.4 hours p.r.n. 2. Alteplase 2 mg IV p.r.n. PICC line occlusion. 3. Ascorbic acid 1000 mg p.o. daily. 4. PreserVision vitamin 1 p.o. daily. 5. Calcium/vitamin D 1 p.o. daily. 6. Cefepime 2 g IV q.8 hours. 7. Enoxaparin 40 mg subcutaneous daily. 8. Famotidine 20 mg p.o. twice daily. 9. Ferrous sulfate 325 mg p.o. twice daily. 10. Gabapentin 600 mg p.o. twice daily. 11. Multivitamin 1 p.o. daily. 12. Oakman-3 fatty acids 1000 mg p.o. daily. 13. Oxycodone continuous release 10 mg p.o. twice daily. 14. Oxycodone immediate release 5-10 mg p.o. q.3 hours p.r.n. 15. Polyethylene glycol 17 g p.o. daily. 16. Senna/docusate 1-2 tablets p.o. twice daily. 17. Temazepam 15 mg p.o. at bedtime p.r.n. 18. Tramadol 50 mg p.o. q.6 hours p.r.n. 19. Vitamin B complex 1 p.o. daily. ALLERGIES: There is an allergy listed to codeine. FAMILY HISTORY: Noncontributory. PSYCHOSOCIAL HISTORY: She lives with her daughter and granddaughter. She has a remote history of smoking. She is retired from [employer] with the [email or web address]. REVIEW OF SYSTEMS: She reports pain is adequately controlled. She does not sleep very well on hospital beds. She denies cough or dyspnea. She denies snoring. She denies nausea, vomiting, constipation, or diarrhea. She denies dysuria or urinary frequency. She reports that she has had swelling in her legs since shortly post surgical. She denies skin rash. She denies fevers or chills. Otherwise a 10-point review of systems is negative. PHYSICAL EXAM: VITAL SIGNS: Blood pressure is 127/74, heart rate is 84, respiratory rate is 17, oxygen saturation is 98% on 2 L. Temperature is 36.6 degrees centigrade. Her weight is 88.5 kg for a body mass index of 39.8. GENERAL: This is an obese woman, sitting in a wheelchair, dressed in street clothes, cooperative, and in no acute distress. HEENT: Extraocular movements are intact. Pupils are equal, round, and reactive to light. Mucous membranes are moist. Dentition is in good condition. She has a crowded airway, Mallampati class 4. NECK: Supple. HEART: There is regular rate and rhythm with no murmurs, rubs, or gallops. LUNGS: Clear to auscultation bilaterally. ABDOMEN: Soft, nontender, nondistended with normoactive bowel sounds and no hepatosplenomegaly. EXTREMITIES: There is no cyanosis or clubbing. There is 2 + edema to the right lower extremity and 3+ edema to the left lower extremity. Calves are nontender. Radial pulses are 2+ bilaterally. Right dorsalis pedis pulse is 2+ bilaterally. Left pedal pulses are not palpable. possibly due to edema. NEUROLOGIC: She is alert and oriented x3. Cranial nerves 2-12 are grossly intact. There is no focal weakness. Sensation is intact to light touch. SKIN: The left hip was not inspected. The right elbow shows a well- approximated surgical incision with sutures present. There is mild erythema surrounding the incision and down the proximal forearm is nontender. There is no drainage. CURRENT LEVEL OF FUNCTION: Regarding diet, feeding, and swallowing she was on regular diet and required set up. Grooming was accomplished with standby assist. Bathing: Needed assistance. Dressing lower extremity: Needed standby assist. Toileting: Needed standby assist. Bed mobility required moderate assist. Transfers required moderate assist. She used a front-wheeled walker. Her endurance was poor. She was able to ambulate 120 feet with standby assist. IMPRESSION: This is a 77-year-old woman who underwent a left total hip arthroplasty on 04/27/2017 and returned to the hospital on 05/12/2017 with a wound infection and septic joint. Additionally, she met sepsis criteria. She also had a right olecranon bursitis which was infected, possibly due to using her elbow to arise from seated on the armrest of the chair. She eventually underwent incision and drainage of the right olecranon as well as the left hip and had replacement of hardware in the left hip. Cultures grew Escherichia coli , Proteus, and Pseudomonas from the hip and Streptococcus pyogenes from the elbow. With these results, her antibiotic treatment was simplified to cefepime , which she will receive every 8 hours. She continues to have debility, though she is functioning fairly well but will benefit from physical and occupational therapies. She needs the attention of the of the wound nurse for wound vac management and she needs nursing care for wound healing, skin integrity, and medication administration. She will benefit from the care of a physician regarding deep venous thrombosis risk, infection risk, and pain control. Her goal is to complete a rehabilitation stay and then return home with her family with home health care for wound care and PICC line and medication management. For a safe discharge, it is expected that she will achieve supervision to modified independence with mobility, activities of daily living, and medication management. Her pain will be controlled. She will have medication education and her family will have education as well for her to return home with her family. She will receive therapy with physical therapy and occupational therapy for 90 minutes per day for each discipline on 5-7 days of the week. Her expected duration of stay is 7-10 days. It is anticipated that upon discharge she will continue to benefit from home health services including nursing, occupational therapy, and physical therapy. PLAN: 1. Septic bursitis and septic left hip joint status post total hip arthroplasty. Continue antibiotics with the duration being 6 weeks, through June 25, 2016. She will have wound VAC changes 3 times a week per the wound nurse and she will have monitoring of CBC and CMP every Wednesday. She will be followed by the Infectious Disease service. 2. Debility with rehabilitation interrupted by hospitalization. She will have PT and OT to optimize her functional status towards return to home at the supervision to modified-independent level. 3. Anemia. Iron deficient plus anemia of chronic disease. She has been discharged on iron supplement twice daily. I will change this to daily as there is not improved absorption with twice daily. She should continue the iron for approximately a month and have monitoring of her blood counts and iron studies subsequently. 4. Pain control will be continued with oxycodone continuous release, oxycodone immediate release, and tramadol. 5. Edema with possible fluid overload during her hospitalization, especially in the situation of sepsis and elevated lactic acid. Monitor her blood pressure and if she can tolerate it we will initiate low-dose furosemide to reduce the edema, which may improve her mobility. 6. Constipation. Has responded to her current bowel program and it will be continued. 7. DVT prophylaxis will be continued with enoxaparin until her mobility improves considerably. Followup: She is to see Dr. Hernan Head with an appointment on 06/01/2017 at 11 a.m. and she is to follow up with Orthopedic surgeon, Dr. Janine Zamarripa, in approximately 1 week. /[id number]/MODL MTDD
[2017-05-19] MEDS: traMADol 50 MG TAB PO SCH (18:42)
[2017-05-19] MEDS: SENNOSIDES/DOCUSATE SODIUM TAB PO SCH (20:59)
[2017-05-19] MEDS: FAMOTIDINE 20 MG TAB PO SCH (21:00)
[2017-05-19] MEDS: GABAPENTIN 300 MG CAP PO SCH (21:00)
[2017-05-19] MEDS ORDERED: FERROUS SULFATE 325 MG TAB PO SCH (21:00)
[2017-05-19] MEDS: CEFEPIME HCL 2 GM in NS 100 ML IV SCH (21:40)
[2017-05-19] MEDS ORDERED: CEFEPIME HCL 2 GM IV SCH (22:00)
[2017-05-20] MEDS: traMADol 50 MG TAB PO SCH ×5 (00:03→23:49)
[2017-05-20] MEDS: CEFEPIME HCL 2 GM in NS 100 ML IV SCH ×3 (06:05→21:24)
[2017-05-20] MEDS: POLYETHYLENE GLYCOL 3350 17 GM PKT PO SCH (08:25)
[2017-05-20] MEDS: ENOXAPARIN 40 MG/0.4 ML SYR SC SCH (08:26)
[2017-05-20] MEDS: ASCORBIC ACID 500 MG TAB PO SCH (08:29)
[2017-05-20] MEDS: PRESERVISION AREDS2 FORMULA EYE VIT 1 EACH PO SCH (08:32)
[2017-05-20] MEDS: FERROUS SULFATE 325 MG TAB PO SCH (08:32)
[2017-05-20] MEDS: CALCIUM CARB W/VIT D 500 MG TAB PO SCH (08:33)
[2017-05-20] MEDS: FAMOTIDINE 20 MG TAB PO SCH ×2 (08:33→21:24)
[2017-05-20] MEDS: GABAPENTIN 300 MG CAP PO SCH ×2 (08:34→21:24)
[2017-05-20] MEDS: FUROSEMIDE 20 MG TAB PO SCH (08:34)
[2017-05-20] MEDS: OMEGA-3 FATTY ACIDS 1,000 MG CAP PO SCH (08:34)
[2017-05-20] MEDS: MULTIVITAMINS 1 EACH TAB PO SCH (08:34)
[2017-05-20] MEDS: SENNOSIDES/DOCUSATE SODIUM TAB PO SCH ×2 (08:35→21:23)
[2017-05-20] MEDS: VITAMIN B COMPLEX 1 EA CAP/TAB PO SCH (08:39)
[2017-05-20] MEDS ORDERED: NON-FORMULARY NEW DRUG (Calcium Carbonate/Vitamin D3 [Calcium 600 + Vit D Tablet] 1 EACH) PO SCH (09:00)
--- NOTE | 2017-05-20 13:01 | SOAPPROG ---
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 * Continue antibiotics with the duration being 6 weeks, through June 25, 2016. * She will have wound VAC changes 3 times a week per the wound nurse and she will have monitoring of CBC and CMP every Wednesday. She will be followed by the Infectious Disease service. * Debility with rehabilitation interrupted by hospitalization. * PT and OT to optimize her functional status towards return to home at the supervision to modified-independent level. * Anemia. Iron deficient plus anemia of chronic disease. * Much improved on CBC 05/20/2017. * Continue iron supplement. * Pain control will be continued with scheduled oxyCR and tramadol, and , oxycodone immediate release PRN. * Edema with possible fluid overload during her hospitalization, especially in the situation of sepsis and elevated lactic acid. * Initiated furosemide 20 mg q.day. Continue to monitor, continue daily weights. * Urinary frequency. * Trial of oxybutynin 5 mg QHS. * Constipation. Has responded to her current bowel program and it will be continued. * DVT prophylaxis will be continued with enoxaparin until her mobility improves considerably. Followup: She is to see Dr. Hernan Head with an appointment on 06/01/2017 at 11 a.m. and she is to follow up with Orthopedic surgeon, Dr. Janine Zamarripa, in approximately 1 week. 05/20/17 13:23 Subjective: No complaints. Slept okay. Reports that she was up about every 2 hr to urinate which she says is her usual habit. Also has frequent urination during the day. Pain is adequately controlled and she does not want any changes in her pain regimen. She has not noticed any effect of the furosemide. Objective: Vital Signs Temp Pulse Resp BP Pulse Ox 36.9 C 80 20 118/69 95 05/20/17 06:32 05/20/17 08:22 05/20/17 08:22 05/20/17 08:22 05/20/17 08:22 Laboratory Results 05/20/17 06:00 05/19/17 05/20/17 05/21/17 05:59 05:59 05:59 Intake Total 500 486 Output Total 900 300 Balance -400 186 Physical Exam - Physical Exam General Appearance: WD/WN, alert, no apparent distress, obese Respiratory: normal breath sounds, No crackles, No rhonchi, No wheezing Cardiac/Chest: regular rate, rhythm, edema (3+ B LE) Neuro/Psych: no motor/sensory deficits, alert, normal mood/affect, oriented x 3 ICD10 Worksheet Patient Problems: Problems Problem Status Onset Arthritis of left hip Acute Olecranon bursitis of right elbow Acute Postoperative wound infection of left hip Acute chronic disease mgmt/transitional care Acute
[2017-05-20] MEDS: OXYBUTYNIN CHLORIDE 5 MG TAB PO SCH (21:24)
[2017-05-21] MEDS: CEFEPIME HCL 2 GM in NS 100 ML IV SCH ×3 (05:27→21:05)
[2017-05-21] MEDS: traMADol 50 MG TAB PO SCH ×4 (05:27→23:03)
[2017-05-21] MEDS: POLYETHYLENE GLYCOL 3350 17 GM PKT PO SCH (07:50)
[2017-05-21] MEDS: ASCORBIC ACID 500 MG TAB PO SCH (07:50)
[2017-05-21] MEDS: SENNOSIDES/DOCUSATE SODIUM TAB PO SCH ×2 (07:51→21:04)
[2017-05-21] MEDS: FERROUS SULFATE 325 MG TAB PO SCH (07:51)
[2017-05-21] MEDS: PRESERVISION AREDS2 FORMULA EYE VIT 1 EACH PO SCH (07:51)
[2017-05-21] MEDS: FUROSEMIDE 20 MG TAB PO SCH (07:56)
[2017-05-21] MEDS: CALCIUM CARB W/VIT D 500 MG TAB PO SCH (07:56)
[2017-05-21] MEDS: ENOXAPARIN 40 MG/0.4 ML SYR SC SCH (07:56)
[2017-05-21] MEDS: OMEGA-3 FATTY ACIDS 1,000 MG CAP PO SCH (07:56)
[2017-05-21] MEDS: GABAPENTIN 300 MG CAP PO SCH ×2 (07:57→21:04)
[2017-05-21] MEDS: FAMOTIDINE 20 MG TAB PO SCH ×2 (07:57→21:04)
[2017-05-21] MEDS: MULTIVITAMINS 1 EACH TAB PO SCH (07:57)
[2017-05-21] MEDS: VITAMIN B COMPLEX 1 EA CAP/TAB PO SCH (08:14)
--- NOTE | 2017-05-21 09:58 | SOAPPROG ---
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 * Continue antibiotics with the duration being 6 weeks, through June 25, 2016. * She will have wound VAC changes 3 times a week per the wound nurse and she will have monitoring of CBC and CMP every Wednesday. She will be followed by the Infectious Disease service. * Debility with rehabilitation interrupted by hospitalization. * Initial functional independence measure is 96. Setup and standby assist for mobility in activities of daily living. Has easier mobility with 4 wheeled walker rather than front wheeled walker as she can place wound VAC on the seat of the 4 wheeled walker for mobility. * Noted to have fatigue and dyspnea with short bouts of activity, likely due to deconditioning.. * Continue PT and OT to optimize her functional status towards return to home at the supervision to modified-independent level. * Anemia. Iron deficient plus anemia of chronic disease. * Much improved on CBC 05/20/2017. * Continue iron supplement. * Pain control will be continued with scheduled oxyCR and tramadol, and , oxycodone immediate release PRN. * Edema with possible fluid overload during her hospitalization, especially in the situation of sepsis and elevated lactic acid. * Initiated furosemide 20 mg q.day. Continue to monitor, continue daily weights. * Urinary frequency. * Trial of oxybutynin 5 mg QHS. * Constipation. Has responded to her current bowel program and it will be continued. * DVT prophylaxis will be continued with enoxaparin until her mobility improves considerably. Attended staffing, 15 min. Discussed with case management, pharmacist, dietitian, PT, OT. She lives with her daughter and 14-year-old granddaughter. Daughter works during the day. When she needs to achieve considerable independence to go home. Set tentative discharge date for 05/26/2017. Plan for home PT OT and nurse for wound care and IV antibiotics. Followup: She is to see Dr. Hernan Head with an appointment on 06/01/2017 at 11 a.m. Orthopedic surgeon, Dr. Janine Zamarripa, plans to see her in the rehabilitation unit. 05/21/17 12:39 Subjective: No complaints today. Thinks she had fewer urination events overnight on oxybutynin. Pain adequately controlled. Bowels moving. Objective: Vital Signs Temp Pulse Resp BP Pulse Ox 36.5 C 78 15 118/75 93 05/21/17 05:59 05/21/17 05:59 05/21/17 05:59 05/21/17 05:59 05/21/17 05:59 Laboratory Results 05/20/17 06:00 05/20/17 05/21/17 05/22/17 05:59 05:59 05:59 Intake Total 900 1326 Output Total 1100 1300 Balance -200 26 - Time Spent With Patient Time Spent With Patient: Greater than 35 min floor time today, including more than 50% of time in coordination of care during staffing meeting, and counseling patient. Physical Exam - Physical Exam General Appearance: WD/WN, alert, no apparent distress, obese Respiratory: normal breath sounds, No crackles, No rhonchi, No wheezing Cardiac/Chest: regular rate, rhythm, edema (3+ B LE) Skin: normal color, warm/dry Neuro/Psych: no motor/sensory deficits, alert, normal mood/affect, oriented x 3 ICD10 Worksheet Patient Problems: Problems Problem Status Onset Arthritis of left hip Acute Olecranon bursitis of right elbow Acute Postoperative wound infection of left hip Acute chronic disease mgmt/transitional care Acute
--- NOTE | 2017-05-21 16:08 | WOCRNPDOC ---
WOCRN Advanced Assessment Note - Skin Integrity Problem, Advanced Assess Left Thigh Surgical Wound/Incision Dressing Type: Black Vac Foam (x2), Wound Vac Dressing Description: Clean/Dry Closure Description: Sutures, Approximated Exudate Amount: Moderate (.) Exudate Characteristic(s): Serosanguinous Integumentary Issue Intervention: Dressing Changed Marylu Wound Tissue: Erythema Wound Bed Constitution: Red/Stephen - Non Granular Tissue, Tunneling (at 6 oclock 5 cm under sutures ) Skin Integrity Problem Comment: Sutures intact and skin is healing, however there is a tunnel at 6 oclock that has expanded. This tunnel was a small area of 2 cm undermining previously. Wound was flushed with ns and gauze. Marylu wound skin was prepped with mastisol and Skin prep and then draped. One piece of black foam was cut to fit into tunnel and then a second piece was placed over it. Then a third piece was used to cover the bottom two pieces for the bridge dressing trac pad to connect. Reported to GARY Alford that if vac needs to come down for any reason to please make sure all 3 pieces of foam are removed and that the tunnel is repacked. There is an allevyn life dressing over the sutures for protection. If you need to reinforce dressing take down allevyn and reinforce tegaderm underneath it. Wound care will perform next vac change Wednesday. Reported to Dr. Arcos. Will communicate with Dr. Zamarripa next week.
[2017-05-21] MEDS: OXYBUTYNIN CHLORIDE 5 MG TAB PO SCH (21:05)
[2017-05-21] MEDS ORDERED: CALCIUM CARBONATE 500 MG CHEWABLE TAB PO PRN (22:06)
[2017-05-22] MEDS: traMADol 50 MG TAB PO SCH ×4 (06:12→23:34)
[2017-05-22] MEDS: CEFEPIME HCL 2 GM in NS 100 ML IV SCH ×3 (06:12→21:05)
[2017-05-22] MEDS: SENNOSIDES/DOCUSATE SODIUM TAB PO SCH ×2 (09:47→21:06)
[2017-05-22] MEDS: POLYETHYLENE GLYCOL 3350 17 GM PKT PO SCH (09:47)
[2017-05-22] MEDS: PRESERVISION AREDS2 FORMULA EYE VIT 1 EACH PO SCH (09:50)
[2017-05-22] MEDS: OMEGA-3 FATTY ACIDS 1,000 MG CAP PO SCH (09:50)
[2017-05-22] MEDS: MULTIVITAMINS 1 EACH TAB PO SCH (09:50)
[2017-05-22] MEDS: ASCORBIC ACID 500 MG TAB PO SCH (09:50)
[2017-05-22] MEDS: ENOXAPARIN 40 MG/0.4 ML SYR SC SCH (09:50)
[2017-05-22] MEDS: CALCIUM CARB W/VIT D 500 MG TAB PO SCH (09:50)
[2017-05-22] MEDS: GABAPENTIN 300 MG CAP PO SCH ×2 (09:51→21:06)
[2017-05-22] MEDS: FAMOTIDINE 20 MG TAB PO SCH ×2 (09:51→21:06)
[2017-05-22] MEDS: VITAMIN B COMPLEX 1 EA CAP/TAB PO SCH (09:51)
[2017-05-22] MEDS: FERROUS SULFATE 325 MG TAB PO SCH (09:51)
[2017-05-22] MEDS: FUROSEMIDE 20 MG TAB PO SCH (09:51)
--- NOTE | 2017-05-22 11:47 | SOAPPROG ---
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 * Continue antibiotics with the duration being 6 weeks, through June 25, 2016. * She will have wound VAC changes 3 times a week per the wound nurse and she will have monitoring of CBC and CMP every Wednesday. She will be followed by the Infectious Disease service. * Debility with rehabilitation interrupted by hospitalization. * Initial functional independence measure is 96. Setup and standby assist for mobility in activities of daily living. Has easier mobility with 4 wheeled walker rather than front wheeled walker as she can place wound VAC on the seat of the 4 wheeled walker for mobility. * Noted to have fatigue and dyspnea with short bouts of activity, likely due to deconditioning.. * Continue PT and OT to optimize her functional status towards return to home at the supervision to modified-independent level. * Anemia. Iron deficient plus anemia of chronic disease. * Much improved on CBC 05/20/2017. * Continue iron supplement. * Pain control will be continued with scheduled oxyCR and tramadol, and , oxycodone immediate release PRN. * Edema with possible fluid overload during her hospitalization, especially in the situation of sepsis and elevated lactic acid. * Initiated furosemide 20 mg q.day. Continue to monitor, continue daily weights. * Urinary frequency. * Trial of oxybutynin 5 mg QHS, helping modestly. Well tolerate, consider higher dose. * Constipation. Has responded to her current bowel program and it will be continued. * DVT prophylaxis will be continued with enoxaparin until her mobility improves considerably. Followup: She is to see Dr. Hernan Head with an appointment on 06/01/2017 at 11 a.m. Orthopedic surgeon, Dr. Janine Zamarripa, plans to see her in the rehabilitation unit. Plan: Cont Dr Quiles's rehab treatment plan. Anticipate D/C home with IV and Wound-vac support. 05/22/17 11:43 Subjective: Learning the wound vac device Asking appropriate questions regarding D/C plan, deferred to Dr Quiles Good pain control No F/C/CP/SOB/N/V/D/C Objective: Vital Signs Temp Pulse Resp BP Pulse Ox 36.7 C 75 15 116/64 92 05/22/17 07:44 05/22/17 07:44 05/22/17 07:44 05/22/17 07:44 05/22/17 07:44 Laboratory Results 05/20/17 06:00 05/21/17 05/22/17 05/23/17 05:59 05:59 05:59 Intake Total 1326 130 580 Output Total 1300 1400 200 Balance 26 -1270 380 Physical Exam - Physical Exam General Appearance: alert, no apparent distress Neck: supple Respiratory: lungs clear Cardiac/Chest: regular rate, rhythm Skin: normal color, other (L hip wound not examined below the wound vac dressing. The dressing itself is loose with limited suction power, adjustemnts reviewed with RN. R elbow still errythematous, hot to touch, mildly swollen. Sutures remain.) Neuro/Psych: alert, normal mood/affect, oriented x 3, other (no acute changes) ICD10 Worksheet Patient Problems: Problems Problem Status Onset Arthritis of left hip Acute Olecranon bursitis of right elbow Acute Postoperative wound infection of left hip Acute chronic disease mgmt/transitional care Acute
[2017-05-22] MEDS: OXYBUTYNIN CHLORIDE 5 MG TAB PO SCH (21:16)
[2017-05-23] MEDS: traMADol 50 MG TAB PO SCH ×3 (05:44→17:04)
[2017-05-23] MEDS: CEFEPIME HCL 2 GM in NS 100 ML IV SCH ×3 (05:44→21:26)
[2017-05-23] MEDS: VITAMIN B COMPLEX 1 EA CAP/TAB PO SCH (07:49)
[2017-05-23] MEDS: FAMOTIDINE 20 MG TAB PO SCH ×2 (07:49→20:02)
[2017-05-23] MEDS: POLYETHYLENE GLYCOL 3350 17 GM PKT PO SCH (07:49)
[2017-05-23] MEDS: FERROUS SULFATE 325 MG TAB PO SCH (07:50)
[2017-05-23] MEDS: CALCIUM CARB W/VIT D 500 MG TAB PO SCH (07:50)
[2017-05-23] MEDS: ASCORBIC ACID 500 MG TAB PO SCH (07:50)
[2017-05-23] MEDS: ENOXAPARIN 40 MG/0.4 ML SYR SC SCH (07:50)
[2017-05-23] MEDS: SENNOSIDES/DOCUSATE SODIUM TAB PO SCH ×2 (07:50→20:02)
[2017-05-23] MEDS: MULTIVITAMINS 1 EACH TAB PO SCH (07:51)
[2017-05-23] MEDS: PRESERVISION AREDS2 FORMULA EYE VIT 1 EACH PO SCH (07:51)
[2017-05-23] MEDS: OMEGA-3 FATTY ACIDS 1,000 MG CAP PO SCH (07:51)
[2017-05-23] MEDS: FUROSEMIDE 20 MG TAB PO SCH (07:51)
[2017-05-23] MEDS: GABAPENTIN 300 MG CAP PO SCH ×2 (07:51→20:02)
--- NOTE | 2017-05-23 14:29 | SOAPPROG ---
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 * Continue antibiotics with the duration being 6 weeks, through June 25, 2016. * She will have wound VAC changes 3 times a week per the wound nurse and she will have monitoring of CBC and CMP every Wednesday. She will be followed by the Infectious Disease service. * Debility with rehabilitation interrupted by hospitalization. * Initial functional independence measure is 96. Setup and standby assist for mobility in activities of daily living. Has easier mobility with 4 wheeled walker rather than front wheeled walker as she can place wound VAC on the seat of the 4 wheeled walker for mobility. * Noted to have fatigue and dyspnea with short bouts of activity, likely due to deconditioning.. * Continue PT and OT to optimize her functional status towards return to home at the supervision to modified-independent level. * Anemia. Iron deficient plus anemia of chronic disease. * Much improved on CBC 05/20/2017. * Continue iron supplement. * Pain control will be continued with scheduled oxyCR and tramadol, and , oxycodone immediate release PRN. * Edema with possible fluid overload during her hospitalization, especially in the situation of sepsis and elevated lactic acid. * Initiated furosemide 20 mg q.day. Continue to monitor, continue daily weights. * Urinary frequency. * Trial of oxybutynin 5 mg QHS, helping modestly. Well tolerate, consider higher dose. * Constipation. Has responded to her current bowel program and it will be continued. * DVT prophylaxis will be continued with enoxaparin until her mobility improves considerably. Followup: She is to see Dr. Hernan Head with an appointment on 06/01/2017 at 11 a.m. Orthopedic surgeon, Dr. Janine Zamarripa, plans to see her in the rehabilitation unit. Plan: Cont Dr Quiles's rehab treatment plan. Anticipate D/C home with IV and Wound-vac support. 05/23/17 14:26 Subjective: No new co's Adequate pain control Improving mobility No F/C/CP/SOB/N/V/D/C Objective: Vital Signs Temp Pulse Resp BP Pulse Ox 36.4 C 77 16 116/64 90 L 05/23/17 08:00 05/23/17 08:00 05/23/17 08:00 05/23/17 08:00 05/23/17 08:00 Laboratory Results 05/20/17 06:00 05/22/17 05/23/17 05/24/17 05:59 05:59 05:59 Intake Total 130 1638 Output Total 1400 800 Balance -1270 838 Physical Exam - Physical Exam General Appearance: alert, no apparent distress Respiratory: lungs clear Cardiac/Chest: regular rate, rhythm Abdomen: normal bowel sounds Skin: No normal color (hyperemic, hot R elbow unchanged) Extremities: pedal edema, No calf tenderness Neuro/Psych: alert, normal mood/affect, oriented x 3 ICD10 Worksheet Patient Problems: Problems Problem Status Onset Arthritis of left hip Acute Olecranon bursitis of right elbow Acute Postoperative wound infection of left hip Acute chronic disease mgmt/transitional care Acute
[2017-05-23] MEDS: OXYBUTYNIN CHLORIDE 5 MG TAB PO SCH (20:02)
[2017-05-24] MEDS: traMADol 50 MG TAB PO SCH ×5 (00:11→23:44)
[2017-05-24] MEDS: CEFEPIME HCL 2 GM in NS 100 ML IV SCH ×3 (05:40→21:36)
[2017-05-24] MEDS: MULTIVITAMINS 1 EACH TAB PO SCH (07:52)
[2017-05-24] MEDS: PRESERVISION AREDS2 FORMULA EYE VIT 1 EACH PO SCH (07:53)
[2017-05-24] MEDS: GABAPENTIN 300 MG CAP PO SCH ×2 (07:53→20:19)
[2017-05-24] MEDS: FAMOTIDINE 20 MG TAB PO SCH ×2 (07:53→20:19)
[2017-05-24] MEDS: FUROSEMIDE 20 MG TAB PO SCH (07:54)
[2017-05-24] MEDS: OMEGA-3 FATTY ACIDS 1,000 MG CAP PO SCH (07:55)
[2017-05-24] MEDS: CALCIUM CARB W/VIT D 500 MG TAB PO SCH (07:55)
[2017-05-24] MEDS: VITAMIN B COMPLEX 1 EA CAP/TAB PO SCH (07:55)
[2017-05-24] MEDS: ASCORBIC ACID 500 MG TAB PO SCH (07:55)
[2017-05-24] MEDS: ENOXAPARIN 40 MG/0.4 ML SYR SC SCH (07:56)
[2017-05-24] MEDS: FERROUS SULFATE 325 MG TAB PO SCH (07:56)
[2017-05-24] MEDS: SENNOSIDES/DOCUSATE SODIUM TAB PO SCH ×2 (07:56→20:19)
[2017-05-24] MEDS: POLYETHYLENE GLYCOL 3350 17 GM PKT PO SCH (07:57)
--- NOTE | 2017-05-24 11:01 | WOCRNPDOC ---
[facility] Advanced Assessment Note - Skin Integrity Problem, Advanced Assess Right Lateral Elbow Surgical Wound/Incision Dressing Type: Open to Air Closure Description: Sutures, Not Approximated Exudate Amount: Moderate Exudate Color: Red Exudate Characteristic(s): Sanguinous Carlos Wound Tissue: Erythema, Calloused Skin Integrity Problem Comment: Reported findings to Dr. Zamarripa via text. Left Thigh Surgical Wound/Incision Dressing Type: Black Vac Foam (x3), Wound Vac Dressing Description: Clean/Dry, Intact Closure Description: Sutures, Approximated Exudate Amount: Minimal Exudate Characteristic(s): Serosanguinous Integumentary Issue Intervention: Dressing Changed Wound Bed Constitution: Granulation Tissue (30%), Red/[place] - Non Granular Tissue (70%), Tunneling (6 oclock 3.5 cm) Site Measurement - Head-to-Toe Length X Width X Depth (cm): 2.8x2.8x2.8 Skin Integrity Problem Comment: Removed all foam. Reasessed tunnel, which is smaller. Carlos wound skin intact. Packed tunnel with black foam and then a second piece applied into wound opening. A third piece was used for trac landing pad (bridge dressing used but a small simplace black foam would be adequate at discharge). All carlos wound skin draped after applying skin prep. Vac restarted at -125 DPC with a 5 min rise and 2 min fall. Monica VEGA in room for most of dressing change.
--- NOTE | 2017-05-24 14:28 | SOAPPROG ---
SOAP Progress Note Assessment/Plan: Assessment: Today's update: R elbow incision opened up, dark ild blood/fluid drained, minimal. pain minimal. Subjectively less erythematous, hot. Dressing applied. Cont to monitor. * Septic bursitis and septic left hip joint status post total hip arthroplasty. * Continue antibiotics with the duration being 6 weeks, through June 25, 2016. * She will have wound VAC changes 3 times a week per the wound nurse and she will have monitoring of CBC and CMP every Wednesday. She will be followed by the Infectious Disease service. * Debility with rehabilitation interrupted by hospitalization. * Initial functional independence measure is 96. Setup and standby assist for mobility in activities of daily living. Has easier mobility with 4 wheeled walker rather than front wheeled walker as she can place wound VAC on the seat of the 4 wheeled walker for mobility. * Noted to have fatigue and dyspnea with short bouts of activity, likely due to deconditioning.. * Continue PT and OT to optimize her functional status towards return to home at the supervision to modified-independent level. * Anemia. Iron deficient plus anemia of chronic disease. * Much improved on CBC 05/20/2017. * Continue iron supplement. * Pain control will be continued with scheduled oxyCR and tramadol, and , oxycodone immediate release PRN. * Edema with possible fluid overload during her hospitalization, especially in the situation of sepsis and elevated lactic acid. * Initiated furosemide 20 mg q.day. Continue to monitor, continue daily weights. * Urinary frequency. * Trial of oxybutynin 5 mg QHS, helping modestly. Well tolerate, consider higher dose. * Constipation. Has responded to her current bowel program and it will be continued. * DVT prophylaxis will be continued with enoxaparin until her mobility improves considerably. Followup: She is to see Dr. Hernan Head with an appointment on 06/01/2017 at 11 a.m. Orthopedic surgeon, Dr. Janine Zamarripa, plans to see her in the rehabilitation unit. Plan: Cont Dr Quiles's rehab treatment plan. Anticipate D/C home with IV and Wound-vac support. 05/24/17 14:24 Subjective: No new C/O's No F/C/CP/SOB/N/V/D/C Learning the wound vac well Reassured by wound care nurses reassurances of healing on todys dressing change. Objective: Vital Signs Temp Pulse Resp BP Pulse Ox 36.9 C 84 16 118/55 L 93 05/23/17 20:00 05/23/17 20:00 05/23/17 20:00 05/23/17 20:00 05/23/17 20:00 Laboratory Results 05/20/17 06:00 05/23/17 05/24/17 05/25/17 05:59 05:59 05:59 Intake Total 1638 600 Output Total 800 1275 Balance 838 -675 Physical Exam - Physical Exam General Appearance: alert, no apparent distress Respiratory: lungs clear Cardiac/Chest: regular rate, rhythm Abdomen: normal bowel sounds Skin: normal color, warm/dry, other (L hip wound not examined under wound vac. R elbow incision partially opened, no active bleeding. Sutures remain on distal ends. Overall decreased local erythema, heat.) Extremities: pedal edema, No calf tenderness Neuro/Psych: alert, normal mood/affect, oriented x 3 ICD10 Worksheet Patient Problems: Problems Problem Status Onset Arthritis of left hip Acute Olecranon bursitis of right elbow Acute Postoperative wound infection of left hip Acute chronic disease mgmt/transitional care Acute
[2017-05-24] MEDS: OXYBUTYNIN CHLORIDE 5 MG TAB PO SCH (20:19)
[2017-05-25] MEDS: traMADol 50 MG TAB PO SCH ×3 (06:28→17:09)
[2017-05-25] MEDS: CEFEPIME HCL 2 GM in NS 100 ML IV SCH ×3 (06:29→21:00)
[2017-05-25] MEDS: ENOXAPARIN 40 MG/0.4 ML SYR SC SCH (07:46)
[2017-05-25] MEDS: POLYETHYLENE GLYCOL 3350 17 GM PKT PO SCH (07:56)
[2017-05-25] MEDS: ASCORBIC ACID 500 MG TAB PO SCH (07:57)
[2017-05-25] MEDS: FAMOTIDINE 20 MG TAB PO SCH ×2 (07:58→20:57)
[2017-05-25] MEDS: PRESERVISION AREDS2 FORMULA EYE VIT 1 EACH PO SCH (07:58)
[2017-05-25] MEDS: CALCIUM CARB W/VIT D 500 MG TAB PO SCH (07:59)
[2017-05-25] MEDS: FERROUS SULFATE 325 MG TAB PO SCH (07:59)
[2017-05-25] MEDS: GABAPENTIN 300 MG CAP PO SCH ×2 (08:00→20:56)
[2017-05-25] MEDS: FUROSEMIDE 20 MG TAB PO SCH (08:00)
[2017-05-25] MEDS: OMEGA-3 FATTY ACIDS 1,000 MG CAP PO SCH (08:00)
[2017-05-25] MEDS: MULTIVITAMINS 1 EACH TAB PO SCH (08:01)
[2017-05-25] MEDS: VITAMIN B COMPLEX 1 EA CAP/TAB PO SCH (08:02)
[2017-05-25] MEDS: SENNOSIDES/DOCUSATE SODIUM TAB PO SCH ×2 (08:02→20:57)
[2017-05-25 08:03] LABS: PLATELET COUNT 152 10^3/uL (150-400)
--- NOTE | 2017-05-25 12:28 | SOAPPROG ---
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 * Continue IV cefepime Q 8 hr with the duration being 6 weeks, through June 25, 2016. * She will have wound VAC changes 3 times a week per the wound nurse and she will have monitoring of CBC and CMP every Wednesday. She will be followed by the Infectious Disease service. * Debility with rehabilitation interrupted by hospitalization. * Initial functional independence measure is 96. Setup and standby assist for mobility in activities of daily living. Has easier mobility with 4 wheeled walker rather than front wheeled walker as she can place wound VAC on the seat of the 4 wheeled walker for mobility. * Noted to have fatigue and dyspnea with short bouts of activity, likely due to deconditioning. However has walked > 500' with PT as of 05/24/2017. * Continue PT and OT to optimize her functional status towards return to home at the supervision to modified-independent level. * Anemia. Iron deficient plus anemia of chronic disease. * Much improved on CBC 05/20/2017. Decrease in H/H 05/24/2017 but overall trend has been increasing since 05/16/2017. * Continue iron supplement. * Pain control will be continued with scheduled oxyCR and tramadol, and, oxycodone immediate release PRN. * Edema with possible fluid overload during her hospitalization, especially in the situation of sepsis and elevated lactic acid. * Initiated furosemide 20 mg q.day on 05/20/2017. Continue to monitor, continue daily weights. * Weight has been decreasing 2.5 Kg since 05/21/2017. * Urinary frequency. * Trial of oxybutynin 5 mg QHS. * Constipation. Has responded to her current bowel program and it will be continued. * DVT prophylaxis will be continued with enoxaparin until her mobility improves considerably. She lives with her daughter and 14-year-old granddaughter. Daughter works during the day. She needs to achieve considerable independence to go home. lands resource manager met with patient 05/25/2017 to reassure re plan for care at home. Continue discharge date of 05/26/2017. Plan for home PT OT and nurse for wound care and IV antibiotics. Followup: She is to see Dr. Hernan Head with an appointment on 06/01/2017 at 11 a.m. Orthopedic surgeon, Dr. Janine Zamarripa, plans to see her in the rehabilitation unit. 05/25/17 21:00 Subjective: She does not feel she is ready to go home. Concerned re being a burden on her daughter, who is a single mother and works 2 jobs w/out benefits. Aware that she is too high-functioning to remain at [facility]. O/W w/out complaints. Objective: Vital Signs Temp Pulse Resp BP Pulse Ox 36.5 C 75 16 124/66 H 96 05/25/17 08:00 05/25/17 08:00 05/25/17 08:00 05/25/17 08:00 05/25/17 08:00 Laboratory Results 05/25/17 06:00 05/25/17 06:00 05/24/17 05/25/17 05/26/17 05:59 05:59 05:59 Intake Total 600 200 Output Total 1275 700 Balance -675 -500 Physical Exam - Physical Exam General Appearance: WD/WN, alert, no apparent distress, obese Respiratory: normal breath sounds, No crackles, No rhonchi, No wheezing Cardiac/Chest: regular rate, rhythm, edema (2 - 3+ B LE), No diastolic murmur, No systolic murmur Skin: normal color, warm/dry Neuro/Psych: no motor/sensory deficits, alert, normal mood/affect, oriented x 3 ICD10 Worksheet Patient Problems: Problems Problem Status Onset Arthritis of left hip Acute Olecranon bursitis of right elbow Acute Postoperative wound infection of left hip Acute chronic disease mgmt/transitional care Acute
[2017-05-25] MEDS: OXYBUTYNIN CHLORIDE 5 MG TAB PO SCH (20:57)
[2017-05-26] MEDS: traMADol 50 MG TAB PO SCH ×4 (00:12→17:01)
[2017-05-26] MEDS: CEFEPIME HCL 2 GM in NS 100 ML IV SCH ×3 (05:06→21:13)
[2017-05-26] MEDS: POLYETHYLENE GLYCOL 3350 17 GM PKT PO SCH (08:21)
[2017-05-26] MEDS: SENNOSIDES/DOCUSATE SODIUM TAB PO SCH ×2 (08:21→21:13)
[2017-05-26] MEDS: FUROSEMIDE 20 MG TAB PO SCH (08:21)
[2017-05-26] MEDS: VITAMIN B COMPLEX 1 EA CAP/TAB PO SCH (08:22)
[2017-05-26] MEDS: FAMOTIDINE 20 MG TAB PO SCH ×2 (08:22→21:13)
[2017-05-26] MEDS: PRESERVISION AREDS2 FORMULA EYE VIT 1 EACH PO SCH (08:22)
[2017-05-26] MEDS: FERROUS SULFATE 325 MG TAB PO SCH (08:22)
[2017-05-26] MEDS: MULTIVITAMINS 1 EACH TAB PO SCH (08:22)
[2017-05-26] MEDS: CALCIUM CARB W/VIT D 500 MG TAB PO SCH (08:22)
[2017-05-26] MEDS: ASCORBIC ACID 500 MG TAB PO SCH (08:22)
[2017-05-26] MEDS: GABAPENTIN 300 MG CAP PO SCH ×2 (08:22→21:13)
[2017-05-26] MEDS: OMEGA-3 FATTY ACIDS 1,000 MG CAP PO SCH (08:22)
--- NOTE | 2017-05-26 11:40 | WOCRNPDOC ---
[facility] Advanced Assessment Note - Skin Integrity Problem, Advanced Assess Left Thigh Surgical Wound/Incision Dressing Type: Black Vac Foam (x3), Wound Vac Dressing Description: Clean/Dry, Intact Exudate Amount: Scant Exudate Characteristic(s): Serosanguinous Integumentary Issue Intervention: Dressing Changed Wound Bed Constitution: Granulation Tissue (70%), Red/[place] - Non Granular Tissue (30%) Wound Edges: Epithelizing Site Odor: None Skin Integrity Problem Comment: Vac changed using black simplace small dressing. Bridged to left abdomen after draping carlos wound skin. All foam removed. Repacked wound with 2 pieces of foam. Tunnel foam was cut fairly small to fit into tunnel and not over pack it so that it may begin to close down. Vac restarted at -125 mm Hg DPC with 5 min rise and 2 min fall without leaks. All questions answered. Daughter in room for part of dressing change. Education about needed to keep vac working 24 hours a day and that dressing must come down if it stops working for 2/24 hours. Monica RN in room. Incision site distal to the wound opening is approximated with minimal serosangenous drainage.
--- NOTE | 2017-05-26 12:44 | PDOREHIP ---
Admission [facility] - Admission - 3 Day Assessment Period Admission Date/Day 1: 05/19/17 Day 2: 05/20/17 Day 3: 05/21/17 Discharge [facility] - Discharge - 3 Day Assessment Period 2 Days Prior to Anticipated Discharge Date: 05/25/17 1 Day Prior to Anticipated Discharge Date: 05/26/17 Anticipated Discharge Date: 05/27/17 - Discharge Skin Conditions Unhealed Pressure Ulcer (1 or more/Stage 1 or >)-Discharge: 0. No
[2017-05-26] MEDS: OXYBUTYNIN CHLORIDE 5 MG TAB PO SCH (21:13)
--- NOTE | 2017-05-26 21:51 | SOAPPROG ---
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 * Continue IV cefepime Q 8 hr with the duration being 6 weeks, through June 25, 2016. * She will have wound VAC changes 3 times a week per the wound nurse and she will have monitoring of CBC and CMP every Wednesday. She will be followed by the Infectious Disease service. * Debility with rehabilitation interrupted by hospitalization. * Initial functional independence measure is 96. Setup and standby assist for mobility in activities of daily living. Has easier mobility with 4 wheeled walker rather than front wheeled walker as she can place wound VAC on the seat of the 4 wheeled walker for mobility. * Noted to have fatigue and dyspnea with short bouts of activity, likely due to deconditioning. However has walked > 500' with PT as of 05/24/2017. * Continue PT and OT to optimize her functional status towards return to home at the supervision to modified-independent level. * Anemia. Iron deficient plus anemia of chronic disease. * Much improved on CBC 05/20/2017. Decrease in H/H 05/24/2017 but overall trend has been increasing since 05/16/2017. * Continue iron supplement and weekly CBC. * Pain control will be continued with scheduled oxyCR and tramadol, and, oxycodone immediate release PRN. * Edema with possible fluid overload during her hospitalization, especially in the situation of sepsis and elevated lactic acid. * Initiated furosemide 20 mg q.day on 05/20/2017. Continue to monitor, continue daily weights. * Weight has been decreasing 2.5 Kg since 05/21/2017. * Urinary frequency. * Not improved with oxybutynin 5 mg QHS. D/C 05/26/2017. * Constipation. Has responded to her current bowel program and it will be continued. * DVT prophylaxis will be continued with enoxaparin until her mobility improves considerably. She lives with her daughter and 14-year-old granddaughter. Daughter works during the day. She needs to achieve considerable independence to go home. foreign exchange services manager met with patient 05/25/2017 to reassure re plan for care at home. Discharge date of 05/27/2017. Plan for home PT OT and nurse for wound care and IV antibiotics. Followup: She is to see Dr. Hernan Head with an appointment on 06/01/2017 at 11 a.m. Orthopedic surgeon, Dr. Janine Zamarripa, plans to see her in the rehabilitation unit. 05/26/17 21:49 Subjective: No complaints. Pain adequately controlled. Sleeping well. Not sure she's noticed improvement in edema. No f/c, cough/dyspnea. Oxybutynin has not helped nocturia. Objective: Vital Signs Temp Pulse Resp BP Pulse Ox 36.8 C 92 17 115/58 L 93 05/26/17 20:00 05/26/17 20:00 05/26/17 20:00 05/26/17 20:00 05/26/17 20:00 Laboratory Results 05/25/17 06:00 05/25/17 06:00 05/25/17 05/26/17 05/27/17 05:59 05:59 05:59 Intake Total 200 1260 100 Output Total 700 500 Balance -500 760 100 Physical Exam - Physical Exam General Appearance: WD/WN, alert, no apparent distress, obese Respiratory: No respiratory distress, No accessory muscle use Cardiac/Chest: edema (2 - 3 + B LE pretibial) Skin: normal color, warm/dry Neuro/Psych: no motor/sensory deficits, alert, normal mood/affect, oriented x 3 ICD10 Worksheet Patient Problems: Problems Problem Status Onset Arthritis of left hip Acute Olecranon bursitis of right elbow Acute Postoperative wound infection of left hip Acute chronic disease mgmt/transitional care Acute
[2017-05-27] MEDS: traMADol 50 MG TAB PO SCH ×3 (00:16→12:00)
[2017-05-27] MEDS: CEFEPIME HCL 2 GM in NS 100 ML IV SCH ×2 (05:44→12:00)
[2017-05-27 07:17] VITALS: BP 105/62; PULSE 77; RESP 15; TEMP 98; O2SAT 95
[2017-05-27] MEDS: FAMOTIDINE 20 MG TAB PO SCH (08:26)
[2017-05-27] MEDS: CALCIUM CARB W/VIT D 500 MG TAB PO SCH (08:26)
[2017-05-27] MEDS: VITAMIN B COMPLEX 1 EA CAP/TAB PO SCH (08:26)
[2017-05-27] MEDS: GABAPENTIN 300 MG CAP PO SCH (08:26)
[2017-05-27] MEDS: OMEGA-3 FATTY ACIDS 1,000 MG CAP PO SCH (08:26)
[2017-05-27] MEDS: PRESERVISION AREDS2 FORMULA EYE VIT 1 EACH PO SCH (08:26)
[2017-05-27] MEDS: ASCORBIC ACID 500 MG TAB PO SCH (08:27)
[2017-05-27] MEDS: FUROSEMIDE 20 MG TAB PO SCH (08:27)
[2017-05-27] MEDS: SENNOSIDES/DOCUSATE SODIUM TAB PO SCH (08:27)
[2017-05-27] MEDS: MULTIVITAMINS 1 EACH TAB PO SCH (08:27)
[2017-05-27] MEDS: FERROUS SULFATE 325 MG TAB PO SCH (08:27)
[2017-05-27] MEDS: POLYETHYLENE GLYCOL 3350 17 GM PKT PO SCH (08:27)
== END 2017-05-27 13:30 | disposition home health service (06) | DRG 561 ==
LOC: BREH 15:06
PROVIDERS: ADMIT Internal Medicine; ATTEND Internal Medicine
PROC: F07M3ZZ Motor Function Treatment of Musculoskeletal System - Whole Body (ICD-10-PCS; principal; 2017-05-19)
PROC: F0636ZZ Communicative/Cognitive Integration Skills Treatment of Neurological System - Whole Body (ICD-10-PCS; principal; 2017-05-19)
DX: Z47.1 Aftercare following joint replacement surgery (principal); M70.72 Other bursitis of hip, left hip; M70.21 Olecranon bursitis, right elbow; Z79.2 Long term (current) use of antibiotics; D50.9 Iron deficiency anemia, unspecified; D63.8 Anemia in other chronic diseases classified elsewhere; K59.00 Constipation, unspecified; R60.9 Edema, unspecified; E87.70 Fluid overload, unspecified; Z98.1 Arthrodesis status; E66.01 Morbid (severe) obesity due to excess calories; Z68.36 Body mass index [BMI] 36.0-36.9, adult
CPT/HCPCS: 97110-GO; 97110-GP; 97112-GP; 97116-GP; 97161-GP; 97165-GO; 97530-GO; 97530-GP; 97535-GO; J0692; J1650

== ENCOUNTER → 2018-03-08 | Outpatient (CLI) | payer OTHER | LOC: CIMAGING 10:57 | PROVIDERS: ATTEND Internal Medicine | DX: Z12.31 Encounter for screening mammogram for malignant neoplasm of breast (principal) ==